=== PATIENT | female | born 1975 | race Caucasian/White ===

== ENCOUNTER 2024-11-19 09:08 | Outpatient (CLI) | payer OTHER, SELFPAY ==
--- OUTSIDE RECORDS SUMMARY | 2024-11-19 09:11 | XMS_ITS | Data Portability ---
Author Organization [facility] , [facility] Address [address] [place] [address] Assessment No assessment recorded. Plan of Treatment Reminders Order Date Submit Date Provider Last Modified By Organization Details Last Modified Time Details Appointments None recorded. Lab None recorded. Referral None recorded. Procedures None recorded. Surgeries None recorded. Imaging None recorded. Medication Orders Estrace 0.01% (0.1 mg/gram) vaginal cream 023 023 [facility] [id number], [address], 3 10:07:56 Lysteda 650 mg tablet 023 023 marko [facility] [address], [address], 3 12:55:01 ferrous sulfate 325 mg (65 mg iron) tablet 023 023 [facility] [address], [address], 3 16:38:51 Patient TargetsNo targets recorded. Patient InstructionsNo instructions recorded. Reason for Referral None Reported. Results Created Date Observation Date Name Description Value Unit Range Abnormal Flag Note LastModifiedBy Organization Detail LastModifiedTime 04/09/2004/09/2023 HGB AND HCT hemoglobin 12.5 g/dL 12.0-1 6.0 Not Available [facility] (Lab) [address] [facility], [place], [address], 04/09/2023 13:50:21 04/09/2004/09/2023 HGB AND HCT hematocrit 39.1 % 38.0-4 8.0 Not Available [facility] (Lab) [address] [facility], [place], [address], 04/09/2023 13:50:21 04/09/2004/14/2023 BC SURGI MEJIA PATHO LOGY path report [facility] [address] [facility] [place] [address] Phone : [phone] Fax: Depar tment of Patho logy Patho logy Repor t SURGI MEJIA FINAL REPOR T Patie nt Name: CHRISTIANNE BUITRAGO, BERTRAM DICKINSON [facility] cessi on#: [id number] : 1974 (Age: 47) Locat ion: SEOWM IF Gende r: F Colle cted Date: 2022 [facility] Rec #: [id number] Date Recei lola: 2022 Date Repor bobby: 2022 Provi antoine: BERTRAM Marin MD Speci men(s ) A: Uteru s, cervi x, bilat eral fallo pian tubes B: Cyst, Left ovari an Final Patho logic Diagn osis A. UTERU S, CERVI X AND FALLO PIAN TUBES , HYSTE RECTO MY AND BILAT ERAL SALPI NGECT HALIE: CERVI X WITH NO SIGNI FICAN T HISTO LOGIC ABNOR MALIT IES FALLO PIAN TUBES WITH BENIG N PARAT UBAL CYST (1.5 CM) ENDOM YOMET RIUM WITH PROLI FERAT BLANCA ENDOM ETRIU M, ADENO MYOSI S AND LEIOM YOMAS (SUNG URING UP TO 0.5 CM) B. LEFT OVARI AN CYST, CYSTE CTOMY : BENIG N OVARI AN CYST CONSI STENT WITH FOLLI CULAR CYST Felicity ctron icall y Patricia d Out ALLIS ON T LANA Pollack MD Patho logis t ATB:p b Micro scopi c Descr iptio n: The micro scopi c exami natio n suppo rts the above diagn osis. Clini mejia Histo ry Stres s incon tinen ce, femal e, frequ ency of mictu ritio n, teagan rhagi a Gross Descr iptio n Recei lola are two forma whit-f illed conta iners both label ed with the patie nt's name (Sotero buitrago), date of (05/27 6). A. Addit ional ly label ed uter us, cervi x, bilat eral fallo pian tubes , colle ction time 04/09 at 0949. The speci men consi sts of a 168 gram uteru s with attac hed cervi x, bilat eral amput ated undes ignat ed purpl e-gordon fimbr iated fallo pian tube and an intac t undes ignat ed parat ubal like cyst. The fallo pian tubes and cyst weigh 7 gram in aggre gate weigh t. The uteru s measu res 13.0 cm from fundu s-cer vix, 8.0 cm from cornu -corn u and 6.5 cm from anter ior to poste rior uteri ne body. The seros a is pink- gordon, to purpl e-gordon with small cysts noted . The resec tion kam n has areas that are sligh tly hemor rhagi c disco lored and ragge d. These raise d aspec ts range from 0.2 cm up to 0.6 cm in [facility]. The cervi x measu res 3.5 x 2.8 cm and has a slit- like os. The uteru s is bival lola to revea l a uteri ne cavit y measu ring 5.6 x 2.8 cm. The endom etriu m is red-t an and sligh tly sloug marcus, measu ring up to 0.4 cm in thick ness. Secti oning of the myome trium revea ls three myome trial nodul es. The two small er nodul es are white -gordon, whorl ed and well defin ed, measu ring 0.3 and 0.5 cm in great est dimen rubina. The remai renetta nodul e is white -gordon, whorl ed and ill-d efine d, measu ring 2.0 cm in great est dimen rubina. The remai renetta myome trium is pink- gordon with areas that appea r sligh tly trabe culat ed, avera ging 2.5 cm in thick ness. The cervi mejia canal is paten t with multi ple under lying cysti c like cavit ies that conta in semit ransl ucent gelat inous mater ial. The parat ubal cyst measu res 1.5 x 1.3 x 1.0 cm. Secti oning of the cyst revea ls a lumen that conta ins trans lucen t fluid . Tube #1 measu res 5.2 cm in lengt h with a diame ter up to 1.0 cm. Tube #2 measu res 5.0 cm in lengt h with a diame ter up to 0.8 cm. Secti oning of the tubes revea ls a pin-p oint lumen . Repre senta tive secti ons are submi tted as follo ws: A1 - Anter ior cervi x A2 - Poste rior cervi x A3 - Evacu ated parat ubal cyst, perpe ndicu larly bisec bobby and submi tted entir ailyn A4 - Repre senta tive tube 1 to inclu de fimbr iae submi tted entir ailyn A5 - Repre senta tive tube 2 to inclu de fimbr iae submi tted entir ailyn A6-7 - Repre senta tive full thick ness anter ior endom yomet rium A8-9 - Repre senta tive full thick ness endom yomet rium (A8 to inclu de repre senta tive myome trial nodul es) A10 - Repre senta tive ill-d efine d myome trial nodul e A11 - Remai nder of small er nodul es in addit ion to repre senta tive ill-d efine d nodul e A12 - Repre senta tive small cysts on seros a A13 - Repre senta tive ragge d resec tion kam n of uteru s B. Addit ional ly label ed left ovari an cyst, colle ction time 04/09 at 1024. The speci men consi sts of a 2 gram evacu ated ovari an cyst measu ring 4.0 x 4.0 cm with a wall thick ness of up to 0.6 cm. The exter nal surfa ce is white -gordon to purpl e-gordon and prima rily diamante h. The cyst linin g is red-t an to white -gordon and range s from diamante h to sligh tly granu lar appea ring. There is a singl e area of ovoid sligh tly dense disco lorat ion on the cyst linin g measu ring 0.4 x 0.4 cm. There is no ident ifiab le ovari an tissu e prese nt. Repre senta tive secti ons are submi tted in casse ttes B1 and B2, to inclu de the white -gordon ovoid area of cyst linin g submi tted entir ailyn in two secti ons, prese nt in casse tte B2. :duc reeder Fee Code( s): 90293 Not Available [facility] (Lab) [place], [address], 04/14/2023 15:20:33 Result Notes None recorded. Problems Name Problem SNOMED Code Status Onset Date Resolution Date Notes Provider Name and Address Organization Details Recorded Time Mixed urinary incontin ence 815689041 Active 2017 Mixed incontin ence; Progress : Stable Added By: Roxy Samayoa Add to Current Problems : YES ProblemS tatus: Current Mixed urinary incontin ence; Location : None Progress : Stable Added By: Lavinia Bonilla Add to Current Problems : YES ProblemS tatus: Resolve Mixed urinary incontin ence; Location : None Progress : Stable Added By: Carolyn Do Add to Current Problems : YES ProblemS tatus: Resolve Mixed urinary incontin ence; Location : None Progress : Stable Added By: Roxy Samayoa Add to Current Problems : YES ProblemS tatus: Current Not Available [facility] 19:23:08 Dysuria 24968451 Completed 201703/27/2018 Dysuria; Progress : Stable Added By: Jordyn Mai Add to Current Problems : NO ProblemS tatus: Resolve Painful micturit ion, unspecif ied; Progress : Stable Added By: Jordyn Mai Add to Current Problems : NO ProblemS tatus: Resolve Not Available [facility] 19:23:08 Problem Notes None recorded. Procedures Surgical History Date Name Laterality Status Provider Name and Address Organization Details Recorded Time 023 laparoscopic-assi sted vaginal hysterectomy completed Maddison Betancourt MD [address] [place] [address], [phone], [facility] 04/10/2023 18:50:03 023 insertion of transobturator tape for female urinary incontinence completed Maddison Betancourt MD [address] [place] [address], [phone], [facility] 04/10/2023 18:50:49 022 Endometrial Biopsy completed Maddison Betancourt MD [address] [place] [address], [phone], [facility] 04/25/2022 22:43:11 022 Most Recent Mammogram completed Fabiana Taylor [facility] 03/25/2022 13:10:53 section completed Britany ziegler [facility] 03/24/2022 21:59:48 procedure on back completed Lili Gandara [facility] 03/10/2023 15:28:46 Imaging Results None recorded. Procedure Notes None recorded. Medical Equipment None Reported. Allergies Allergen ID Allergen Name Allergen Category Reaction Reaction Severity Criticality Documentation Date Start Date Code Code System Note Provider Name and Address Organization Details Recorded Time 838572 aloe extract food,medi cation Not available Not available Not available 05/17/20212017 33339 RxNorm Sever ity: Moder ate; Not Available Not Available Not Available 608356 Lovenox medicatio n Not available Not available Not available 05/17/20212017 59448 6 RxNorm Sever ity: Moder ate; Not Available Not Available Not Available 176691 heparin sodium, porcine medicatio n Not available Not available Not available 05/17/20212017 85286 9 RxNorm Sever ity: Moder ate; Not Available Not Available Not Available Medications Name Sig Start Date Stop Date Status Note LastModified by Organization Details LastModified Time medroxypr ogesteron e 10 mg tablet TAKE 1 TABLET TWICE DAILY FOR 10 DAYS NEEDED FOR HEAVY PERIOD 03/10 completed Not Available Not Available Not Available oxybutyni n chloride ER 15 mg tablet,ex tended release 24 hr TAKE 1 TABLET BY MOUTH EVERY DAY 03/10 completed Not Available Not Available Not Available ketoconaz ole 2 % shampoo USE SHAMPOO 2-3 TIMES A WEEK NEED FOR ITCHING SCALP. LEAVE ON FOR 5-10 MINUTES BEFORE RINSING. active Not Available Not Available No t Available citalopra m 40 mg tablet Take 1 tablet(s ) by mouth daily 03/25 completed Citalopr am Hydrobro mide 10mg Tablet Allow Substitu tion: True Refill Denied: No Refill DateOccu rred: 09/03/19 18 Not Available Not Available Not Available oxybutyni n chloride ER 10 mg tablet,ex tended release 24 hr Take 1 tablet(s ) by mouth daily 12/02 completed Oxybutyn in Chloride 10mg Tablets, Extended Release Allow Substitu tion: True Refill Denied: No Not Available Not Available Not Available meloxicam 15 mg tablet TAKE 1 TABLET (15 MG TOTAL) BY MOUTH DAILY. active Not Available Not Available No t Available topiramat e 25 mg tablet TAKE 1 TABLET (25 MG TOTAL) BY MOUTH DAILY. 03/25 completed Not Available Not Available Not Available triamcino lone acetonide 0.1 % topical cream APPLY TOPICALL Y TWICE A DAY 03/25 completed Not Available Not Available Not Available citalopra m 20 mg tablet Take 1 tablet(s ) by mouth daily 04/08 completed Citalopr am Hydrobro mide 10mg Tablet Allow Substitu tion: True Refill Denied: No Refill DateOccu rred: 09/03/19 18 Not Available Not Available Not Available ferrous sulfate 325 mg (65 mg iron) tablet TAKE 1 TABLET BY MOUTH EVERY DAY active Not Available Not Available No t Available polymyxin B sulfate 10,000 unit-trim ethoprim 1 mg/mL eye drops PLACE 1 DROP INTO THE RIGHT EYE EVERY 4 HOURS FOR 7 DAYS. 03/10 completed Not Available Not Available Not Available diclofena c sodium 75 mg tablet,de layed release TAKE 1 TABLET BY MOUTH TWICE A DAY active Not Available Not Available No t Available ibuprofen 600 mg tablet TAKE 1 TABLET BY MOUTH EVERY 6 HOURS NEEDED FOR PAIN active Not Available Not Available No t Available estradiol 0.01% (0.1 mg/gram) vaginal cream INSERT 1 GRAM BY VAGINAL ROUTE 3 TIMES A WEEK AT BEDTIME. active Not Available Not Available No t Available methylpre dnisolone 4 mg tablets in a dose pack TAKE 6 TABLETS ON DAY 1 DIRECTED ON PACKAGE AND DECREASE BY 1 TAB EACH DAY FOR A TOTAL OF 6 DAYS active Not Available Not Available No t Available ipratropi um bromide 42 mcg (0.06 %) nasal spray SPRAY 2 SPRAYS INTO EACH NOSTRIL 4 TIMES A DAY 03/10 completed Not Available Not Available Not Available clobetaso l 0.05 % scalp solution APPLY TO SCALP ONCE DAILY NO MORE THAN 5 OUT OF 7 DAYS PER WEEKS NEEDED 04/18 completed Not Available Not Available Not Available metformin ER 500 mg tablet,ex tended release 24 hr TAKE 1 TABLET BY MOUTH EVERY DAY WITH BREAKFAS T 03/10 completed Not Available Not Available Not Available amoxicill in 875 mg-potass ium clavulana te 125 mg tablet TAKE 1 TABLET BY MOUTH TWICE A DAY FOR 10 DAYS 09/09 completed Not Available Not Available Not Available clindamyc in phosphate 1 % topical solution APPLY SOLUTION TOPICALL Y TO SCALP ONCE DAILY FOR 14 DAYS 09/09 completed Not Available Not Available Not Available oxycodone 5 mg tablet TAKE 1 TABLET BY MOUTH EVERY 6 HOURS NEEDED. INDICATI ONS: ACUTE PAIN < 7 DAY SUPPLY 04/18 completed Not Available Not Available Not Available Bactrim DS 800 mg-160 mg tablet 1 PO BID X 10 days 01/26 completed Bactrim DS 160mg/80 0mg Tablet RxNorm: 889720 Allow Substitu tion: True Refill Denied: No Not Available Not Available Not Available escitalop lianet 10 mg tablet TAKE 1 TABLET BY MOUTH EVERY DAY 04/08 completed Not Available Not Available Not Available escitalop lianet 20 mg tablet TAKE 1 TABLET BY MOUTH EVERY DAY active Not Available Not Available No t Available nitrofura ntoin monohydra te/macroc rystals 100 mg capsule TAKE 1 CAPSULE BY MOUTH TWICE A DAY active Not Available Not Available No t Available fluocinol one 0.01 % scalp oil and shower cap APPLY TO SCALY SPOTS ON SCALP NIGHTLY NEEDED 04/18 completed Not Available Not Available Not Available fenofibra te 160 mg tablet TAKE 1 TABLET BY MOUTH EVERY DAY active Not Available Not Available No t Available oxybutyni n chloride Take 1 tablet(s ) by mouth daily 03/26 completed Oxybutyn in Chloride 15mg Tablets, Extended Release RxNorm: 231108 Allow Substitu tion: True Refill Denied: No Not Available Not Available Not Available folic acid 03/25 completed Folic Acid Allow Substitu tion: True Refill Denied: No Refill DateOccu rred: 09/03/19 18 Not Available Not Available Not Available Fenofibra te Take 1 tablet(s ) by mouth daily 03/25 completed Fenofibr ate 160mg Tablet Allow Substitu tion: True Refill Denied: No Refill DateOccu rred: 09/03/19 18 Not Available Not Available Not Available sodium fluoride 1.1 %-potassi um nitrate 5 % dental paste BRUSH ON THOROUGH LY ONCE DAILY FOR 2 MINUTES, PREFERAB LY AT BEDTIME active Not Available Not Available No t Available cholecalc iferol (vitamin D3) 1,250 mcg (50,000 unit) capsule TAKE 1 CAPSULE (50,000 UNITS TOTAL) BY MOUTH WEEKLY. active Not Available Not Available No t Available tranexami c acid 650 mg tablet TAKE 2 TABLETS BY MOUTH 3 TIMES A DAY FOR 5 DAYS 04/18 completed Not Available Not Available Not Available Probiotic 04/08 completed Probioti c Allow Substitu tion: True Refill Denied: No Refill DateOccu rred: 09/03/19 18 Not Available Not Available Not Available Myrbetriq 2017 active Myrbetri q 50mg Tablets, Extended Release RxNorm: [id number] Allow Substitu tion: True Refill Denied: No Refill DateOccu rred: 11/06/19 18 Not Available Not Available Not Available Vitals Date Recorded Body height Body mass index (BMI) Body weight Systolic blood pressure Diastolic blood pressure Provider Name and Address Organization Details Last Updated DateTime 2022 160.02 cm 38.6 kg/m2 14538.42 g 116 mm[Hg] 84 mm[Hg] Fabiana Taylor [facility] 2 10:33:55 Date Recorded Body height Body mass index (BMI) Body weight Systolic blood pressure Diastolic blood pressure Provider Name and Address Organization Details Last Updated DateTime 09/09/2022 160.02 cm 38.3 kg/m2 50088.39 g 118 mm[Hg] 84 mm[Hg] Fabiana Taylor [facility] 3 16:20:11 Date Recorded Body height Body mass index (BMI) Body weight Systolic blood pressure Diastolic blood pressure Provider Name and Address Organization Details Last Updated DateTime 03/10/2023 160.02 cm 38.4 kg/m2 05394.5 4 g 130 mm[Hg] 80 mm[Hg] Lili Gandara [facility] [employer] [facility] 3 15:30:37 Date Recorded Body height Provider Name an d Address Organization Details Last Updated DateTime 04/18/2023 160.02 cm Justyna Buckley [facility] 04/18/2023 12:28:00 Date Recorded Body mass index (BMI) Body weight Body temperature Systolic blood pressure Diastolic blood pressure Provider Name and Address Organization Details Last Updated DateTime 3 38.2 kg/m2 65275.2 3 g 98 [degF] 120 mm[Hg] 82 mm[Hg] Joi Squires [facility] 3 12:54:25 Date Recorded Body height Body mass index (BMI) Body weight Systolic blood pressure Diastolic blood pressure Provider Name and Address Organization Details Last Updated DateTime 06/23/2023 160.02 cm 39.3 kg/m2 527528. 51 g 110 mm[Hg] 70 mm[Hg] Lili Gandara [facility] 09:53:39 Social History Question Answer Notes LastModified by Organizat [employer] Details LastModified Time Tobacco Smoking Status Never Smoker Chelsey Dominguez nae [place] [employer] [facility] 04/08/2022 14:54:21 What Is Your Level Of Alcohol Consumption? None Information not available 04/08/2022 Are You Blind Or Do You Have Difficulty Seeing? No Information not available 04/08/2022 Are You Deaf Or Do You Have Serious Difficulty Hearing? No Information not available 04/08/2022 What Type Of Diet Are You Following? REGULAR Information not available 04/08/2022 How Many Children Do You Have? 1 Information not available 03/25/2022 What Is Your Relationship Status? Domestic Partner Information not available 03/25/2022 Are You Sexually Active? Yes Information not available 03/25/2022 Do You Use Any Illicit Or Recreational Drugs? No Information not available 04/08/2022 Sex: Female Functional Status Question Answer Note LastModified by Organizat ion Details LastModified Time What is your exercise level? Occasional Information not available 04/08/2022 Mental Status None recorded. Family History Relationship Description Onset Age of this Age Resolved Age Notes LastModified by Organization Details LastModified Time Mother Malignant tumor of breast 50 Not available 2021 13:04:24 Maternal Grandmother Malignant tumor of colon 50 Not available 2021 13:04:24 Medical History Condition Response Other Cancer N High Blood Pressure N Colon Cancer N Cytomegalovirus N Hyperthyroidism N Breast Cancer N Herpes (HSV) N MRSA N Blood Transfusion N Lung Cancer N Hypothyroidism N Depression N Incontinence N Panic Attacks N Neurological Disorder N Deep Vein Thrombosis N Anxiety Disorder N Autoimmune disease N Arthritis N Shingles N Tuberculosis/Positive PPD N Polycystic Ovarian Syndrome N Cervical Cancer N Chlamydia N Hematuria N Varicosities N Stroke N Crohn's Disease N Seasonal allergies N Alzheimer's/Dementia N COPD/Emphysema N Endometriosis N HPV/Genital Warts N IBS (Irritable Bowel Syndrome) N History of Abnormal Pap N High Cholesterol N Liver Disease N Fibromyalgia N Kidney Infection N Ulcer N Kidney Disease N HIV N Gallbladder disease N Sickle Cell Disease/Trait N Von Willebrand disease N ADD/ADHD N Eating Disorder N Anemia N Diabetes Mellitus (non-insulin dependent ) N Multiple Sclerosis N Ovarian Problems N Gonorrhea N Frequent Urinary Tract infections N Osteopenia N Headaches/migraines N GERD (reflux) N Ovarian Cancer N Diabetes (insulin dependent) N Seizures/Epilepsy N Fibroids N Asthma N Heart Attack N Lupus N Endometrial Cancer N Rubella N Blood Clotting Disorder N Bipolar Disorder N Diabetes Mellitus (during ) N Ulcerative Colitis N Hepatitis N Heart Disease N Pulmonary Embolism N RPR N Chicken Pox N Osteoporosis N Gynecological History Statement/Question Response Duration of Flow (days) 13 Most Recent Mammogram 01/24/2022 Current Control Method Hysterectom y Flow Heavy Date of LMP 01/24/2023 Obstetrics History GPAL:G 6 P 1 0 5 1 Type Value Full Term 1 Spontaneous 5 Living 1 Total 6 Past Encounters Encounter ID Performer Location Encounter Start Date Encounter Closed Date Diagnosis/Indication Diagnosis SNOMED-CT Code Diagnosis ICD10 Code Diagnosis Note [id number] Maddison Betancourt MD [facility] [address] [place] [address] 03/25/2022 12:29:23 03/27/2022 00:34:55 Menorrhagia 063123557 N92.0 Recent episode of severe menorrhagi a which was preceded by several months of amenorrhea . Pt currently taking provera which has helped to slow the bleeding. She is fearful of this severe bleeding happening again and would also like to make sure nothing is wrong like cancer. discussed that stress may affect regularity of menses as can perimenopa useAdvised to complete the provera and then sched follow up 3 - 4 wk for ultrasound and endometria l bx History of recurrent miscarriage - not 194140033 N96 hx of MTHFR Family marjorie nning surveillance 540725235 Z30.09 pt is not on any control at this time, uses condoms. She is certain at this point in her life she does not want any further childbeari ng and wants to be done with fear of . Briefly discussed Mirena IUD, may also consider surgical options after we complete her work up [id number] Maddison Betancourt MD [facility] [address] [place] [address] 04/08/2022 14:00:10 04/28/2022 15:11:39 Excessive and frequent menstruation 558498643 N92.0 discussed and reviewed ultrasound findings. Endometria l bx done today, follow up results [id number] Maddison Betancourt MD [address] [address] 2022 10:02:14 06/02/2022 09:22:34 Menometrorrhagia 695340563 N92.1 most likely DUB. Had few months of amenorrhea then prolonged bleeding. Some help with Provera. Embx neg but scant sample. Hx of MTHFR and has been advised to avoid hormonesDi scussed options: may continue to take provera prn heavy bleeding. may consider hysterosco py with ablation, vs hysterecto my if recurrent issues.ask ed pt to keep a menstrual calendar and to see me in 3 months. call sooner if heavy bleeding recurs, would repeat provera [id number] Maddison Betancourt MD [address] [address] 09/09/2022 15:53:39 09/16/2022 15:06:13 Mixed urinary incontinence 566852544 N39.46 discussed her urinary incontinen ce. Advise referral to Dr Macdonald to manage this problem [id number] Maddison Betancourt MD [address] [address] 03/10/2023 15:16:12 03/10/2023 18:30:10 Excessive and frequent menstruation 389453431 N92.0 Severe prolonged menstrual bleeding which has not responded to progestins . Will try Lysteda. Will also place on iron and follow up the blood work that Dr Verduzco betty this am so we don't duplicate. Reviewed chart including prior ultrasound and embx. She has had 1 prior c sectionAt this point, patient desires to proceed with hysterecto my. Is also aware of ablation option, but she is concerned that it may not work/is not definitive . 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 pt has appt to see Dr Macdonald in July. Will begin estradiol cream 1 g 3X weekly Health Concerns Section Related Observation LastModified by Organization [employer] ls LastModified Time None Recorded Concern Status LastModified by Organization Details LastModified Time None Recorded Advance Directives Directive None Recorded Payers Encounter Date Sequence Insurance Name Policy Number Policy Patricia Covered Member ID Patricia Member ID Guarantor Name 2022 1 [employer] [id number] Maddison Gustafson [id number] Maddison Gustafson 09/09/2022 1 [employer] [id number] Maddison Gustafson [id number] Maddison Gustafson 03/10/2023 1 [employer] [id number] Maddison Gustafson [id number] Maddison Gustafson 04/18/2023 1 R [id number] Maddison Gustafson [id number] Maddison Gustafson 06/23/2023 1 [facility] [id number] Maddison Gustafson [id number] Maddison Gustafson Notes Date Note Type Note Provider Name and Address Organization Details Recorded Time 2022 text/html Maddison comes back in to review the results of her endometrial biopsy and ultrasound. She had the bx done in office and it did not show any abn, however a scant sample was obtained.She has had menorrhagia and irregular cycles. She has been treated with provera and had good results with this. However, she has MTHFR and does not want to take hormonal methods group home. She knows she cannot take ocp due to this.The month of March was horrible with heavy and prolonged bleedingShe is not really having much pelvic pain, mostly just feeling bloated when bleeding heavilyShe would like to consider a hysterectomy in the future. she feels like she is too busy to deal with all this bleeding. She is in the process of obtaining legal guardianship of her niece who is 1 yr old. She also has a 13 yr old. Maddison Betancourt MD [address] [place] [address], [phone], [employer] [facility] 2022 11:09:37 09/09/2022 text/html Maddison is farzaneh varinder seen for a f/u visit for irregular bleeding.She was ok with continue taking provera prn heavy bleeding she may consider hysteroscopy with ablation vs hysterectomy if recurrent issues. Pt is to keep a menstrual calendar.Patient has not had any bouts of major bleeding since Apr 30. She has not had to take the provera.She has had some issues with her bladder, leaking urine, stress incontinence as well as urge incontinence. This all started after having a bad cough. Patient is using depends or very thick pads . Patient also has a history of kidney stones and has seen some bright red blood as well as UTI type symptoms that just suddenly went away. Patient thinks that it could have possibly been a stone. Patient is very discouraged. Maddison Betancourt MD [address] [place] [address], [place], [phone], [facility] [employer] 03/10/2023 04:43:04 03/10/2023 text/html Maddison is a 5 6 yr old who presents for a visit concerning abnormal uterine bleeding.She has been treated with Provera.She underwent pelvic ultrasound last Sept with the finding of a heterogenous uterus without distinct fibroid. An endometrial biopsy was also done but showed scant tissue.She has a medical history of MTHFR and has been advised to not take hormones/estrogen.We have previously discussed treatment options for herPt is scheduled for her sling surgery with Dr Macdonald on 04/09.She had blood work with Dr Carmelo Verduzco this morning., Maddison Betancourt MD [address] [place] [address], [phone], [facility] 03/10/2023 18:30:00 04/18/2023 text/html Maddison return s for her first post op appt from her laparoscopic assisted total vaginal hysterectomy with bilateral salpingectomies and left ovarian cystectomy. She also had a midurethral bladder sling placed by Dr Macdonald.She had no intraoperative complications and was discharged POD 1.Uterine pathology showed fibroids and adenomyosisShlele is doing well, working from home on laptop.She feels very sore overall but is doing well. She is emptying bladder well. Did see Dr Macdonald and has a urine culture pendingShe notes that she is not leaking when she is coughing or sneezing as much, was able to go from wearing a depends to just a small pad Maddison Betancourt MD [address] [place] [address], [place], [phone], [facility] [facility] 04/18/2023 13:14:22 06/23/2023 text/html Maddison return s for a final post op check from her LAVH/BS/LEFT OV CYSTECTOMY done 04/09/23. She also had a TOT sling done by Dr Macdonald the same day.She experienced no post op complications.She reports that she is having some pinkish disch with intercourse and her stated that he can feel something Maddison Betancourt MD [address] [place] [address], [place], [phone], [employer] [facility] 06/23/2023 10:08:31 OBGyn Episode Ob Episode Information Episode Created Date Number of Fetuses Patient Bloodtype Patient rh Status Prepregnancy Weight lbs Domestic Partner Domestic Partner Phone Father Name Optician Apprentice Dispensing Status 09/09/19 23 1 CLOSED Fetus Data First Name Last Name Admitted to NICU Weight (g) Sex Living Outcome Pediatric Complications Fetus ID Race Codes Race Delivery Type 3656.85 [id number] F Full Term [id number] Primary Ton Calculation Initial Ton Date Initial Exam Date Initial Exam Provider Initial Ultrasound Date Last Menstrual Period Date Ultra Sound Weeks Gestation 0 Eighteen To Twenty Week Ton Update Ultra Sound Date Fundal Height At Umbil Quickening Date Ultra Sound Latest Weeks Gestation Final Ton Confirmed By Final Ton Confirmed Date Final Ton Date Ultra Sound Latest Days Gestation 0 0 Menstrual History Last Menstrual Date Menses Monthly On Bcp Conception Prior Menses Frequency Hcg Plus Date Menarche Onset Age Delivery Information Delivery Date Delivery Type Labor Anesthesia Weeks Gestation Incision Type Labor Labor Length Hrs Delivered By Post Complications Tubal Sterilization Discharge Date Comments 9 40 Discharge Information Feeding Method Contraceptive Method Maternal HG B and HCT Levels
--- OUTSIDE RECORDS SUMMARY | 2024-11-19 09:12 | XMS_ITS | Encounter Summary ---
Author Organization [facility] Address [address] [place] [address] Care Team Providers Care Snowmaker Name Role Phone Carmelo Verduzco MD Primary Care Provider [phone] Encounter Details Date Type Department Care Team (Late st Contact Info) Description 08/26/2023 [employer] Message Enc [facility] Family Medicine [address], [address] [place] [phone] [facility], [facility] Provider hand Social History Tobacco Use Types Packs/Day Years Used Date Smoking Tobacco: Never Smokeless Tobacco: Never Alcohol Use Standard Drinks/Week Comments No 0 (1 standard drink = 0.6 oz pur e alcohol) PHQ-2 Answer Date Recorded Patient Health Questionnaire-2 Score 2 08/26/2023 Comments No Sex and Gender Information Value Date Recorded Sex Assigned at Female 09/19/2024 1:27 PM ENVELOPE SEALER OPERATOR Legal Sex Female 5:32 PM CDT Gender Identity Female 09/19/2024 1:27 PM ENVELOPE SEALER OPERATOR Sexual Orientation Not on file documented as of this encounter Functional Status * Over the past 2 weeks, how often have you been bothered by any of the following problems? Question Answer Date of Assessment Author Status Little interest or pleasure in doing things Several days 08/26/2023 10:36 AM Abida Gastelum MA Active Feeling down, depressed, or hopeless Several days 08/26/2023 10:36 AM Abida Gastelum MA Active Patient Health Questionnaire-2 Score 2 08/26/2023 10:36 AM Miranda Gastelum MA Active documented as of this encounter Plan of Treatment Not on file documented as of this encounter Visit Diagnoses Not on filedocumented in this encounter Additional Health Concerns Assessment Noted Time PHQ-9 Depression Total Score: 0 10/18/19 22 8:13 AM CDT documented as of this encounter Care Teams Snowmaker Relationship Specialty Start Date End Date Carmelo Verduzco MD [address] [facility] [address] [place] [address] PCP - General FAMILY PRACTICE 11/11/17 documented as of this encounter
--- OUTSIDE RECORDS SUMMARY | 2024-11-19 09:12 | XMS_ITS | Encounter Summary ---
Author Organization [facility] Address [address] [place] [address] Care Team Providers Care Assistant Director Of Nursing Name Role Phone Carmelo Verduzco MD Primary Care Provider [phone] Encounter Details Date Type Department Care Team (Late st Contact Info) Description 10/04/2024 [employer] Message Enc [facility] Medical Group Orthopedic & Sports Medicine - [place] [address] [place], [place] [phone] Omero Cedillo MD [address] [place] [address] Pain in left hand Social History Tobacco Use Types Packs/Day Years Used Date Smoking Tobacco: Never Passive Smoke Exposure: Past Smokeless Tobacco: Never Alcohol Use Standard Drinks/Week Comments No 0 (1 standard drink = 0.6 oz pur e alcohol) PHQ-2 Answer Date Recorded Patient Health Questionnaire-2 Score 0 09/19/2024 Comments No Sex and Gender Information Value Date Recorded Sex Assigned at Female 09/19/2024 1:27 PM WRAPPER COUNTER Legal Sex Female 5:32 PM CDT Gender Identity Female 09/19/2024 1:27 PM WRAPPER COUNTER Sexual Orientation Not on file documented as of this encounter Plan of Treatment Not on file documented as of this encounter Visit Diagnoses Not on filedocumented in this encounter Additional Health Concerns Assessment Noted Time PHQ-9 Depression Total Score: 0 10/18/19 22 8:13 AM CDT documented as of this encounter Care Teams Assistant Director Of Nursing Relationship Specialty Start Date End Date Carmelo Verduzco MD [address] [facility] [address] [place] [address] PCP - General FAMILY PRACTICE 11/11/17 documented as of this encounter
--- OUTSIDE RECORDS SUMMARY | 2024-11-19 09:12 | XMS_ITS | Encounter Summary ---
Author Organization [facility] Address [address] [place] [address] Care Team Providers Care Corrective Therapy Aide Name Role Phone Arlen Golden MD, Polo Felton Primary Care Provider Encounter Details Date Type Department Care Team (Late st Contact Info) Description 09/19/2008 Outpatient Historical [facility] Gabriel Jones MD NO ADDRESS ON FILE Social History Tobacco Use Types Packs/Day Years Used Date Smoking Tobacco: Never Assessed Comments Unknown Sex and Gender Information Value Date Recorded Sex Assigned at Not on file Legal Sex Female 5:37 AM MANAGER FINANCIAL Gender Identity Not on file Sexual Orientation Not on file documented as of this encounter Plan of Treatment Not on file documented as of this encounter Procedures Procedure Name Priority Date/Time Associated Diagnosis Comments US OB LTD 1 OR MORE FETUSES Timed Study 09/26/2008 2:52 PM MANAGER FINANCIAL documented in this encounter Results * US OB LTD 1 OR MORE FETUSES (09/26/2008 2:52 PM MANAGER FINANCIAL) Anatomical Region Laterality Modality Pelvis Other Narrative 09/26/2008 2:52 PM MANAGER FINANCIAL FINAL - Order Information Only Procedure Note Torin Veliz RN - 08/14/2015 FINAL - Order Information Only Gabriel Jones MD US ORDERABLES Final Result documented in this encounter Visit Diagnoses Not on filedocumented in this encounter Care Teams Corrective Therapy Aide Relationship Specialty Start Date End Date Polo Mckinley Jr., MD PCP - General Family Practice 03/29/14 documented as of this encounter
--- OUTSIDE RECORDS SUMMARY | 2024-11-19 09:12 | XMS_ITS | Clinical Summary ---
Author Organization [facility] Address [address] [place] [address] Care Team Providers Care Circuit Breaker Mechanic Name Role Phone Carmelo Verduzco MD Primary Care Provider [phone] Source Comments [facility],non-owned Affiliates and Associated Physician Practices is amultiple site organization consisting of ambulatory clinics and hospital sitesin [place], [place], [place] and [place]. This disclosure is being madepursuant to the Care Everywhere program and may not contain all information available regarding this patient. Last updated 18.[facility] Allergies Active Allergy Reactions Criticality Noted Date Comments Lidocaine Urticaria Medium 06/07/2018 Heparin Urticaria Medium 06/07/2018 Lovenox Urticaria Medium 06/07/2018 Medications * Be aware that medications may not be up to date on this document. Alwaysverify current medications with the patient. oxybutynin CR 24hr (DITROPAN XL) 15 MG tablet 04/12/2018 Ac tive fenofibrate (LOFIBRA) 160 MG tablet 05/28/2018 Active escitalopram (LEXAPRO) 10 MG tablet 05/28/2018 Active pantoprazole EC (PROTONIX) 40 MG tablet TK 1 T PO D 3 02/09/2018 Active Family History Medical History Relation Name Comments Depression Brother Early Brother Arthritis - Osteo Father Cancer - Skin, Non Melanoma Father Depression Father Arthritis - Osteo Maternal Grandfather CVA Maternal Grandfather Cancer - Colon Maternal Grandfather Cancer - Skin, Non Melanoma Maternal Grandfather Hearing Loss - Unspecified Maternal Grandfather Other - Cardiac Maternal Grandfather Hear t Disease Arthritis - Osteo Maternal Grandmother Hearing Loss - Unspecified Maternal Grandmother Arthritis - Osteo Mother Cancer - Breast Mother Relation Name Status Comments Brother Father Alive Maternal Grandfather Maternal Grandmother Alive Mother Alive Sister Alive Social History Tobacco Use Types Packs/Day Years Used Date Smoking Tobacco: Never Smokeless Tobacco: Never Tobacco Cessation:Counseling Given: No Alcohol Use Standard Drinks/Week Comments No 0 (1 standard drink = 0.6 oz pur e alcohol) Comments No Sex and Gender Information Value Date Recorded Sex Assigned at Not on file Legal Sex Female 6:35 AM RESOURCE DIRECTOR Gender Identity Not on file Sexual Orientation Not on file Last Filed Vital Signs Vital Sign Reading Time Taken Comments Blood Pressure 121/82 06/14/2018 11:10 AM RESOURCE DIRECTOR Pulse 91 06/14/2018 11:10 AM RESOURCE DIRECTOR Temperature 36.5 C (97.7 F) 06/14/2018 11:10 AM RESOURCE DIRECTOR Respiratory Rate - - Oxygen Saturation - - Inhaled Oxygen Concentration - - Weight 104.3 kg (230 lb) 06/14/2018 11:10 AM RESOURCE DIRECTOR Height 157.5 cm (5' 2 ) 06/14/2018 11:10 AM RESOURCE DIRECTOR Body Mass Index 42.07 06/14/2018 11:10 AM RESOURCE DIRECTOR Plan of Treatment Health Maintenance Due Date Last Done Comments COLOGUARD (AGES 45-75) - COL ON CA SCREENING 1976 COLON MONITORING 1976 COLONOSCOPY - COLON CA SCREENING 1976 CT COLONOGRAPHY - COLON CA SCREENING 1976 Colorectal Cancer Screening 1976 FIT - COLON CA SCREENING 1976 FLEX SIG - COLON CA SCREENING 1976 LIPID TESTING 1976 MAMMOGRAM 1976 HIV SCREENING 1991 HEPATITIS C SCREENING 05/27/1994 DTAP/TDAP/TD VACCINES (1 - Tdap) 1995 HEPATITIS B VACCINE (1 of 3 - 19+ 3-dose series) 1995 SCREENING FOR DIABETES 06/14/2018 COVID-19 VACCINE (1 - 2023-2 5 season) 2024 DEPRESSION SCREENING 07/27/2024 INFLUENZA VACCINE (Season Ended) 2025 ZOSTER VACCINE (1 of 2) 2026 HIB VACCINE Aged Out No longer eligi ble based on patient's age to complete this topic HPV VACCINE Aged Out No longer eligi ble based on patient's age to complete this topic MENINGOCOCCAL (Group B) VACC INE SHARED DECISION-MAKING Aged Out No longer eligibl e based on patient's age to complete this topic MENINGOCOCCAL GROUPS A/C/Y/W VACCINE Aged Out No longer eligible b ased on patient's age to complete this topic PNEUMOCOCCAL VACCINE Aged Out No long er eligible based on patient's age to complete this topic Insurance Member Subscriber Plan / Payer (Ef fective 2015-Present) Name:Maddison Phillips Relation to Subscriber:Self Name:Maddison Phillips Payer ID:[id number] (NAIC) Type:[employer] Address: [place] [id number] [place] [id number] Care Teams Circuit Breaker Mechanic Relationship Specialty Start Date End Date Carmelo Verduzco MD [address] [facility] [address] [place] [address] PCP - General Family Medicine 06/07/18
--- OUTSIDE RECORDS SUMMARY | 2024-11-19 09:12 | XMS_ITS | Encounter Summary ---
Author Organization [facility] Address [address] [place] [address] Care Team Providers Care Machine Bender Name Role Phone Carmelo Verduzco MD Primary Care Provider [phone] Encounter Details Date Type Department Care Team (Late st Contact Info) Description 03/16/2023 [employer] Message Enc [facility] Medical Group Family Medicine - [place] [address] [facility], [address] [place] [address] [facility] Provider pap results Social History Tobacco Use Types Packs/Day Years Used Date Smoking Tobacco: Never Smokeless Tobacco: Never Alcohol Use Standard Drinks/Week Comments No 0 (1 standard drink = 0.6 oz pur e alcohol) PHQ-2 Answer Date Recorded Patient Health Questionnaire-2 Score 0 08/05/2022 Comments No Sex and Gender Information Value Date Recorded Sex Assigned at Female 09/19/2024 1:27 PM PROOF COINS INSPECTOR Legal Sex Female 5:32 PM CDT Gender Identity Female 09/19/2024 1:27 PM PROOF COINS INSPECTOR Sexual Orientation Not on file documented as of this encounter Plan of Treatment Not on file documented as of this encounter Visit Diagnoses Not on filedocumented in this encounter Additional Health Concerns Assessment Noted Time PHQ-9 Depression Total Score: 0 10/18/19 22 8:13 AM CDT documented as of this encounter Care Teams Machine Bender Relationship Specialty Start Date End Date Carmelo Verduzco MD [address] [facility] [address] [place] [address] PCP - General FAMILY PRACTICE 11/11/17 documented as of this encounter
--- OUTSIDE RECORDS SUMMARY | 2024-11-19 09:12 | XMS_ITS | Encounter Summary ---
Author Organization [facility] Address [address] [place] [address] Care Team Providers Care Test Cell Technician Name Role Phone Carmelo Verduzco MD Primary Care Provider [phone] Encounter Details Date Type Department Care Team (Late st Contact Info) Description 12/29/2022 [employer] Message Enc [facility] Medical Group Family Medicine - [place] [address] [facility], [address] [place] [phone] Carmelo Verduzco MD [address] [facility] [address] [place] [phone] Metformin and Oxybutinin Social History Tobacco Use Types Packs/Day Years Used Date Smoking Tobacco: Never Smokeless Tobacco: Never Alcohol Use Standard Drinks/Week Comments No 0 (1 standard drink = 0.6 oz pur e alcohol) PHQ-2 Answer Date Recorded Patient Health Questionnaire-2 Score 0 08/05/2022 Comments No Sex and Gender Information Value Date Recorded Sex Assigned at Female 09/19/2024 1:27 PM ENTERPRISE INFRASTRUCTURE ARCHITECT Legal Sex Female 5:32 PM CDT Gender Identity Female 09/19/2024 1:27 PM ENTERPRISE INFRASTRUCTURE ARCHITECT Sexual Orientation Not on file documented as of this encounter Plan of Treatment Not on file documented as of this encounter Visit Diagnoses Not on filedocumented in this encounter Additional Health Concerns Assessment Noted Time PHQ-9 Depression Total Score: 0 10/18/19 22 8:13 AM CDT documented as of this encounter Care Teams Test Cell Technician Relationship Specialty Start Date End Date Carmelo Verduzco MD [address] [facility] [address] [place] [address] PCP - General FAMILY PRACTICE 11/11/17 documented as of this encounter
--- OUTSIDE RECORDS SUMMARY | 2024-11-19 09:12 | XMS_ITS | Encounter Summary ---
Author Organization [facility] Address [address] [place] [address] Care Team Providers Care Public Relations Specialist Name Role Phone Arlen Golden MD, Polo Felton Primary Care Provider Encounter Details Date Type Department Care Team (Late st Contact Info) Description 10/17/2008 Outpatient Historical HIS PATIENT IN A BED Marciano Grissom MD [address] [place] [phone] Genaro Walker MD NO ADDRESS ON FILE Social History Tobacco Use Types Packs/Day Years Used Date Smoking Tobacco: Never Assessed Comments Unknown Sex and Gender Information Value Date Recorded Sex Assigned at Not on file Legal Sex Female 5:37 AM PRODUCT MGMT DEV MANAGER Gender Identity Not on file Sexual Orientation Not on file documented as of this encounter Plan of Treatment Not on file documented as of this encounter Procedures Procedure Name Priority Date/Time Associated Diagnosis Comments URINALYSIS WITH REFLEX CULTURE Stat 10/17/2008 8:39 PM CDT URINALYSIS W/REFLEX MICROSCOPIC Stat 10/17/2008 8:39 PM CDT documented in this encounter Results * (ABNORMAL) URINALYSIS (10/17/2008 8:39 PM CDT) BLOOD UA Negative Negative [facility] COLOR UA Pale Yellow [facility] NITRITE UA Negative Negative [facility] UROBILINOGEN UA <1 <=1 mg/dL [facility] PH UA 6.5 5.0 - 8.0 [facility] KETONES UA 1+(A) Negative [facility] CLARITY UA Clear Clear [facility] BILIRUBIN UA Negative Negative [facility] PROTEIN UA Negative Negative [facility] LEUKOCYTE ESTERASE UA Negative Negative [facility] SPECIFIC GRAVITY UA 1.008 1.001 - 1.035 [facility] GLUCOSE UA Negative Negative [facility] 10/17/2008 8:39 PM CDT 10/17/2008 8:43 PM CDT Marciano Grissom MD URINE ORDERABLES Final Result Performing Organization Address [facility] Phone Number INTERFACE SYSTEM Refer to clinic/hospital department [facility] CLIA# [id number] [address] [place] [address] * URINALYSIS WITH REFLEX CULTURE (10/17/2008 8:39 PM CDT) URINE CULTURE ORDER Not indicated [facility] Comment: Criteria for a reflex culture include one or more of the following: Abnormal nitrite, leukocyte esterase, WBCs or RBCs. Lack of qualifying criteria does not exclude the possiblity of a urinary tract infection. Dilute urine, drug interference, etc. may decrease the sensitivity of the criteria analytes. Urine specimen (specimen) 10/17/2008 8:39 PM CDT 10/17/2008 8:43 PM CDT Marciano Grissom MD URINE ORDERABLES Final Result Performing Organization Address [facility] Phone Number INTERFACE SYSTEM Refer to clinic/hospital department [facility] CLIA# [id number] [address] [place] [address] documented in this encounter Visit Diagnoses Not on filedocumented in this encounter Care Teams Public Relations Specialist Relationship Specialty Start Date End Date Arlen Golden, Polo Felton MD PCP - General Family Practice 03/29/14 documented as of this encounter
--- OUTSIDE RECORDS SUMMARY | 2024-11-19 09:12 | XMS_ITS | Encounter Summary ---
Author Organization [facility] Address [address] [place] [address] Care Team Providers Care Hand Sole Sewer Name Role Phone Carmelo Verduzco MD Primary Care Provider [phone] Encounter Details Date Type Department Care Team (Late st Contact Info) Description 03/08/2024 Hoot.Met Message Enc [facility] Family Medicine - [place] [address], [address] [place] [address] [place] [address] [place] [address] meds Social History Tobacco Use Types Packs/Day Years Used Date Smoking Tobacco: Never Passive Smoke Exposure: Past Smokeless Tobacco: Never Alcohol Use Standard Drinks/Week Comments No 0 (1 standard drink = 0.6 oz pur e alcohol) PHQ-2 Answer Date Recorded Patient Health Questionnaire-2 Score 2 08/26/2023 Comments No Sex and Gender Information Value Date Recorded Sex Assigned at Female 09/19/2024 1:27 PM PIANO MAKER Legal Sex Female 5:32 PM CDT Gender Identity Female 09/19/2024 1:27 PM PIANO MAKER Sexual Orientation Not on file documented as of this encounter Progress Notes * Maddison Zhong MA - 03/10/2024 11:59 AM CDT Calling patient to advise per Dr. Morales: I didn???t rx her Ozempic and do not do PAs for this without dx of DM You can let her know we could RX the Wellbutrin and naltrexone separately for cost if contrave isn???t covered Dr Verduzco said since she???s already on bid voltaren really the only option safe with naltrexone use for prn pain other than trmadol Is Tylenol, if she wants to see if this controls her pain so we can try contrave let me know. I???dwant her off the tramadol for at least a week prior to starting contrave anyway Pt vu and stated she will check with her insurance for cost on the medications. Once she does checkher options she will send us a Cometa message on what she would like to do. * Maddison Zhong MA - 03/10/2024 6:33 AM CDT Received a fax pa for patients Ozempic. Will advise Dr. Morales. It looks as if we are waiting to hear back from patient about stopping a medication for pain to start contrave. documented in this encounter Plan of Treatment Not on file documented as of this encounter Visit Diagnoses Not on filedocumented in this encounter Additional Health Concerns Assessment Noted Time PHQ-9 Depression Total Score: 0 10/18/19 22 8:13 AM CDT documented as of this encounter Care Teams Hand Sole Sewer Relationship Specialty Start Date End Date Carmelo Verduzco MD [address] [facility] [address] [place] [address] PCP - General FAMILY PRACTICE 11/11/17 documented as of this encounter
--- OUTSIDE RECORDS SUMMARY | 2024-11-19 09:12 | XMS_ITS | Encounter Summary ---
Author Organization [facility] Address [address] [place] [address] Care Team Providers Care Electrician Aircraft Name Role Phone Carmelo Verduzco MD Primary Care Provider [phone] Encounter Details Date Type Department Care Team (Late st Contact Info) Description 07/29/2023 PrivateFlyt Message Enc [facility] Family Medicine - [place] [address], [address] [place] [phone] Carmelo Verduzco MD [address] [facility] DANIEL [address] [place] [id number] Hand Specialist Social History Tobacco Use Types Packs/Day Years Used Date Smoking Tobacco: Never Smokeless Tobacco: Never Alcohol Use Standard Drinks/Week Comments No 0 (1 standard drink = 0.6 oz pur e alcohol) PHQ-2 Answer Date Recorded Patient Health Questionnaire-2 Score 0 08/05/2022 Comments No Sex and Gender Information Value Date Recorded Sex Assigned at Female 09/19/2024 1:27 PM MACHINE SCALLOP CUTTER Legal Sex Female 5:32 PM CDT Gender Identity Female 09/19/2024 1:27 PM MACHINE SCALLOP CUTTER Sexual Orientation Not on file documented as of this encounter Plan of Treatment Not on file documented as of this encounter Visit Diagnoses Not on filedocumented in this encounter Additional Health Concerns Assessment Noted Time PHQ-9 Depression Total Score: 0 10/18/19 22 8:13 AM CDT documented as of this encounter Care Teams Electrician Aircraft Relationship Specialty Start Date End Date Carmelo Verduzco MD [address] [facility] [address] [place] [address] PCP - General FAMILY PRACTICE 11/11/17 documented as of this encounter
--- OUTSIDE RECORDS SUMMARY | 2024-11-19 09:12 | XMS_ITS | Encounter Summary ---
Author Organization [facility] Address [address] [place] [address] Care Team Providers Care Infectious Disease Technician Name Role Phone Arlen Golden MD, Polo Felton Primary Care Provider Encounter Details Date Type Department Care Team (Late st Contact Info) Description 06/15/2008 Outpatient Historical [facility] Gabriel Jones MD NO ADDRESS ON FILE Social History Tobacco Use Types Packs/Day Years Used Date Smoking Tobacco: Never Assessed Comments Unknown Sex and Gender Information Value Date Recorded Sex Assigned at Not on file Legal Sex Female 5:37 AM VISITING NURSE Gender Identity Not on file Sexual Orientation Not on file documented as of this encounter Plan of Treatment Not on file documented as of this encounter Procedures Procedure Name Priority Date/Time Associated Diagnosis Comments US OB LTD 1 OR MORE FETUSES Timed Study 07/04/2008 11:47 AM VISITING NURSE documented in this encounter Results * US OB LTD 1 OR MORE FETUSES (07/04/2008 11:47 AM VISITING NURSE) Anatomical Region Laterality Modality Pelvis Other Narrative 07/04/2008 11:47 AM VISITING NURSE Results in [facility] Procedure Note 02/01/2009 Results in [facility] Gabriel Jones MD US ORDERABLES Final Result documented in this encounter Visit Diagnoses Not on filedocumented in this encounter Care Teams Infectious Disease Technician Relationship Specialty Start Date End Date Polo Mckinley Jr., MD PCP - General Family Practice 03/29/14 documented as of this encounter
--- OUTSIDE RECORDS SUMMARY | 2024-11-19 09:12 | XMS_ITS | Referral Summary ---
Author Organization [facility] Address [address] [place] [address] Care Team Providers Care Shake Splitter Name Role Phone Carmelo Verduzco MD Primary Care Provider [phone] Allergies Active Allergy Reactions Criticality Noted Date Comments Aloe Vera Rash Reaction: RASH Enoxaparin Hives,Rash,Urticaria Medium 01/31/2018 Heparin Hives,Rash,Unknown,Urticaria Medium 016 Rash Lidocaine Hives,Urticaria Medium 06/07/2018 Medications medroxyPROGESTER one (PROVERA) 10 mg tablet Take 1 tablet (10 mg total) by mouth daily for 10 days 10 tablet 03/22/2022 Active Social History Tobacco Use Types Packs/Day Years Used Date Smoking Tobacco: Never Assessed Personal Safety Answer Date Recorded Getting School Help Needed Not on file 10/09 Comments Unknown Sex and Gender Information Value Date Recorded Sex Assigned at Not on file Legal Sex Female 4:57 PM LINOLEUM TILE FLOOR LAYER Gender Identity Not on file Sexual Orientation Not on file Last Filed Vital Signs Vital Sign Reading Time Taken Comments Blood Pressure 119/82 03/22/2022 4:52 PM CDT Pulse 97 03/22/2022 4:52 PM CDT Temperature 37 C (98.6 F) 03/22/2022 2:49 PM CDT Respiratory Rate 18 03/22/2022 4:52 PM CDT Oxygen Saturation 96% 03/22/2022 4:52 PM CDT Inhaled Oxygen Concentration - - Weight 98.3 kg (216 lb 11.4 oz) 03/22/2022 2:49 PM CDT Height 160 cm (5' 3 ) 03/22/2022 2:49 PM CDT Body Mass Index 38.39 03/22/2022 2:49 PM CDT Plan of Treatment Not on file Insurance [facility] Member Subscriber Plan / Payer (Ef fective 2021-Present) Name:Maddison Gustafson Relation to Subscriber:Self Name:Maddison Gustafson Payer ID:[id number] (NAIC) Type:[facility] HMO/PPO Address: [place] [phone] Care Teams Shake Splitter Relationship Specialty Start Date End Date Carmelo Verduzco MD [address] [address] PCP - General Family Practice 03/22/22
--- OUTSIDE RECORDS SUMMARY | 2024-11-19 09:12 | XMS_ITS | Encounter Summary ---
Author Organization [facility] Address [address] [place] [address] Care Team Providers Care Internal Recruiter Name Role Phone Arlen Golden MD, Polo Felton Primary Care Provider Encounter Details Date Type Department Care Team (Late st Contact Info) Description 10/21/2008 Outpatient Historical [facility] Gabriel Jones MD NO ADDRESS ON FILE Social History Tobacco Use Types Packs/Day Years Used Date Smoking Tobacco: Never Assessed Comments Unknown Sex and Gender Information Value Date Recorded Sex Assigned at Not on file Legal Sex Female 5:37 AM OFFAL WORKER Gender Identity Not on file Sexual Orientation Not on file documented as of this encounter Plan of Treatment Not on file documented as of this encounter Visit Diagnoses Not on filedocumented in this encounter Care Teams Internal Recruiter Relationship Specialty Start Date End Date Polo Mckinley Jr., MD PCP - General Family Practice 03/29/14 documented as of this encounter
--- OUTSIDE RECORDS SUMMARY | 2024-11-19 09:12 | XMS_ITS | Encounter Summary ---
Author Organization [facility] Address [address] [place] [address] Care Team Providers Care Marine Cargo Surveyor Name Role Phone Arlen Golden MD, Polo Felton Primary Care Provider Encounter Details Date Type Department Care Team (Late st Contact Info) Description 03/31/2008 Outpatient Historical [facility] PATIENT IN A BED Marciano Grissom MD [address] [place] [phone] Linda Barrientos MD [address] [place] [phone] Social History Tobacco Use Types Packs/Day Years Used Date Smoking Tobacco: Never Assessed Comments Unknown Sex and Gender Information Value Date Recorded Sex Assigned at Not on file Legal Sex Female 5:37 AM BEEKEEPER Gender Identity Not on file Sexual Orientation Not on file documented as of this encounter Plan of Treatment Not on file documented as of this encounter Procedures Procedure Name Priority Date/Time Associated Diagnosis Comments HCG QUANTITATIVE, BLOOD Stat 03/31/2008 9:24 PM CDT documented in this encounter Results * (ABNORMAL) HCG QUANTITATIVE, BLOOD (03/31/2008 9:24 PM CDT) HCG QUANT, BLOOD 36,980(H) 0 - 5 mIU/mL [facility] Comment: Result of 5 - 25 mIU/mL is indeterminant for , repeat of test recommemded in 48 hours. Reference Range: Gestational Age: 3 Weeks 5.8 - 71.2 mIU/mL 4 Weeks 9.5 - 750 mIU/mL 5 Weeks 217 - 7138 mIU/mL 6 Weeks 158 - 31,795 mIU/mL 7 Weeks 3697 - 163,563 mIU/mL 8 Weeks 32,065 - 149,571 mIU/mL 9 Weeks 63,803 - 151,410 mIU/mL 10 Weeks 46,509 - 186,977 mIU/mL 12 Weeks 27,832 - 210,612 mIU/mL 14 Weeks 13,950 - 62,530 mIU/mL 15 Weeks 12,039 - 70,971 mIU/mL 16 Weeks 9040 - 56,451 mIU/mL 17 Weeks 8175 - 55,868 mIU/mL 18 Weeks 8099 - 58,176 mIU/mL Heterophile antibodies and other interfering substances in the serum of some patients may cause a false-positive result in this assay. Before making a diagnosis of malignancy or etopic ,the result of this test should be confirmed with a urine HCG test and correlated with other clinical evidence. Blood specimen (specimen) 03/31/2008 9:24 PM CDT 03/31/2008 9:31 PM CDT us Marciano Grissom MD CHEMISTRY ORDERABLES E dited INTERFACE SYSTEM Refer to clinic/hospital department [facility] CLIA# [id number] [address] [place] [address] documented in this encounter Visit Diagnoses Not on filedocumented in this encounter Care Teams Marine Cargo Surveyor Relationship Specialty Start Date End Date Polo Mckinley Jr., MD PCP - General Family Practice 03/29/14 documented as of this encounter
--- OUTSIDE RECORDS SUMMARY | 2024-11-19 09:12 | XMS_ITS | Clinical Summary ---
Author Organization [facility] Address [address] [place] [address] Care Team Providers Care Client Services Administrator Name Role Phone Carmelo Walters MD Primary Care Provider [phone] Allergies Active Allergy Reactions Criticality Noted Date Comments Aloe Rash Low 09/28/2013 Enoxaparin Rash,Hives Medium 01/31/2018 Heparin Rash,Unknown,Hives Medium 09/21/2017 Lidocaine Hives Medium 06/07/2018 Medications fenofibrate 160 MG tabletIndications:M ixed hyperlipidemia take 1 tablet by mouth every day 90 tablet 3 4 Active escitalopram (LEXAPRO) 20 MG tabletIndications:A nxiety take 1 tablet by mouth every day 90 tablet 3 4 Active nitrofurantoin, macrocrystal-monohy drate, (MACROBID) 100 MG capsuleIndications: Recurrent UTI Take 1 capsule (100 mg total) by mouth daily as needed. 30 capsule 4 Active traMADol (ULTRAM) 50 MG tabletIndications:A cute Pain < 7 Day Supply Take 1 tablet (50 mg total) by mouth every 6 (six) hours as needed for Pain. Indications: Acute Pain < 7 Day Supply 20 tablet 4 Active guaiFENesin-codeine (GUAIFENESIN AC) 100-10 MG/5ML syrupIndications:Co ugh Take 5 mLs by mouth every 4 (four) hours as needed. Indications: Cough 118 mL 5 Active methylPREDNISolone, SALEEM, (MEDROL DOSEPAK) 4 MG tabletIndications:A llergic reaction 6 TABLETS ON DAY ONE, 5 TABLETS DAY TWO, 4 TABLETS DAY THREE, 3 TABLETS DAY FOUR, 2 TABLETS DAY FIVE, AND 1 TABLET DAY SIX 1 each 5 Active diclofenac EC (VOLTAREN) 75 MG tabletIndications:P rimary osteoarthritis of both hands TAKE 1 TABLET BY MOUTH TWICE A DAY 180 tablet 5 Active Active Problems Problem Noted Date Diagnosed Date Class 3 severe obesity due t o excess calories without serious comorbidity with body mass index (BMI) of 40.0 to 44.9 in adult 03/08/2024 Trigger finger of left thumb 01/13/2024 Trigger ring finger of left hand 01/13/2024 Trigger little finger of left hand 01/13/2024 Carpal tunnel syndrome on left 10/12/2023 Cubital tunnel syndrome on left 10/12/2023 Menorrhagia with irregular cycle 04/09/2023 MTHFR mutation 01/29/2022 Recurrent UTI 01/29/2022 PCOS (polycystic ovarian syndrome) 01/29/2022 Chronic migraine without aur a without status migrainosus, not intractable 01/29/2022 Seborrheic dermatitis 01/29/2022 Urinary incontinence in female 04/01/2018 De Quervain's tenosynovitis 09/21/2017 Seasonal allergic rhinitis 09/20/2015 Lumbar radiculopathy 05/16/2015 Anxiety 09/28/2013 Hyperlipidemia 09/28/2013 Vitamin D deficiency 09/28/2013 Resolved Problems Problem Noted Date Diagnosed Date Resolved Date Encounter for screening colonoscopy 01/25/2024 02/01/2024 Encounter for screening colonoscopy 01/25/2024 03/07/2024 Encounter for screening colonoscopy 01/25/2024 04/04/2024 Encounter for screening colonoscopy 01/25/2024 04/11/2024 Screening for colon cancer 09/30/2023 0 10/05/2023 Screening for colon cancer 09/30/2023 0 01/25/2024 Screening for colon cancer 08/04/2023 0 08/10/2023 Screening for colon cancer 08/04/2023 0 08/31/2023 Bulging lumbar disc 02/15/2018 04/25/20 21 Lumbar spondylolysis 02/15/2018 021 Back pain 02/03/2018 04/25/2021 Stress incontinence, female 08/05/2017 04/25/2021 Sciatica 04/27/2015 04/25/2021 Inflamed seborrheic keratosis 06/28/2014 04/25/2021 Hypothyroidism 03/28/2014 04/25/2021 Encounters Date Type Department Care Team Description 10/21/2024 12:45 PM CDT Office Visit [facility] Occupational Therapy [address] [place] [address] Omero Cedillo MD Pratt, Robin M, OTR Finger pain 10/21/2024 Travel 10/11/2024 9:20 AM CDT Office Visit [facility]opedic [facility] [address] [place] [address] Omero Cedillo MD Follow Up (Left hand pinky finger pain) 10/11/2024 Travel 10/10/2024 MyChart Message Enc [facility] [address], [address] [place] [phone] Carmelo Walters MD Allergic or Something 10/04/2024 MyChart Message Enc [facility] [address] [place] [address] Omero Cedillo MD Pain in left hand 10/03/2024 Telephone [facility] [address] [place] [address] Omero Cedillo MD Appointment Request 09/19/2024 1:00 PM PETROLEUM REFINING EQUIPMENT OPERATOR Office Visit [facility] [address], [address] [place] [phone] Carmelo Walters MD Flu Like Symptoms (Pt presents today for flu like symptoms. Pts daughter was positive for flu A 1 week ago. Pt has hoarse throat, diarrhea, chills, fever, fatigue, side and stomach pain from coughing. She has tried everything she could OTC and nothing helps. Sx stated 10-14 days ago. ) 09/19/2024 Travel from Last 3 Months Immunizations Immunization Administration Dates Next Due Fluzone 6 Months+ Quad (0.5 mL Prefilled Syringe ) 04/25/2021 Influenza Adult (Generic) 05/11/2022 Td 04/03/2000 Tdap (Adacel) 04/25/2021 Tdap (Generic) 08/01/2010 Family History Medical History Relation Comments Cancer Father Hypertension Father Cancer Maternal Grandfather Arthritis Maternal Grandmother Breast Cancer Mother Cancer Mother Hypertension Mother Breast Cancer Other 1 great grandmothe r maternal Breast Cancer Other 2 aunt maternal Relation Status Comments Brother Daughter Alive Father Alive skin Maternal Grandfather Maternal Grandmother Mother Alive Other 1 Other 2 Sister Alive Social History Tobacco Use Types Packs/Day Years Used Date Smoking Tobacco: Never Passive Smoke Exposure: Past Smokeless Tobacco: Never Tobacco Cessation:Counseling Given: No Alcohol Use Standard Drinks/Week Comments No 0 (1 standard drink = 0.6 oz pur e alcohol) PHQ-2 Answer Date Recorded Patient Health Questionnaire-2 Score 0 09/19/2024 Comments No Sex and Gender Information Value Date Recorded Sex Assigned at Female 09/19/2024 1:27 PM PETROLEUM REFINING EQUIPMENT OPERATOR Legal Sex Female 5:32 PM CDT Gender Identity Female 09/19/2024 1:27 PM PETROLEUM REFINING EQUIPMENT OPERATOR Sexual Orientation Not on file Last Filed Vital Signs Vital Sign Reading Time Taken Comments Blood Pressure 136/78 10/11/2024 10:08 AM CDT Pulse 66 10/11/2024 10:08 AM CDT Temperature 36.1 C (96.9 F) 10/11/2024 9:26 AM CDT Respiratory Rate 20 09/19/2024 1:21 PM PETROLEUM REFINING EQUIPMENT OPERATOR Oxygen Saturation 97% 09/19/2024 1:21 PM PETROLEUM REFINING EQUIPMENT OPERATOR Inhaled Oxygen Concentration - - Weight 95.9 kg (211 lb 6.4 oz) 10/11/2024 9:26 A M CDT Height 157.5 cm (5' 2 ) 10/11/2024 9:26 AM CDT p t states Body Mass Index 38.67 10/11/2024 9:26 AM CDT Plan of Treatment Health Maintenance Due Date Last Done Comments Hepatitis B Vaccines (1 of 3 - 19+ 3-dose series) 1995 Annual Physical 03/10/2024 03/10/2023, 04/25/2021 COVID-19 Vaccine ( season) 2024 11/23/2020, 11/02/2020 Mammogram Screening 04/09/2026 04/09/2024, 03/14/2023, 03/10/2022, Additional history exists DTaP, Tdap and Td Vaccines (3 - Td or Tdap) 04/25/2031 04/25/2021, 08/01/2010, 04/03/2000 Colorectal Cancer Screening Colonoscopy (10 Years) 04/11/2034 04/11/2024, 04/11/2024 Hepatitis C Completed 03/10/2023 PHQ-2 (Physician [place]) Completed 09/19/2024 Meningococcal B Vaccine Aged Out No l onger eligible based on patient's age to complete this topic Meningococcal Vaccine Aged Out No rupa carlos eduardo eligible based on patient's age to complete this topic Pneumococcal Vaccine: Pediatrics (0 to 5 Years) and At-Risk Patients (6 to 49 Years) Aged Out No longer eligible based on patient's age to complete this topic RSV Immunizations Under 20 Months Aged Out No longer eligible based on patient's age to complete this topic Medical Devices Implanted Type Area Economic Geographer Device Identifier Shelf Expiration Date Model / Serial / Lot Sling Obtryx Ii Halo - [id number] Implanted:Qty : 1 on 04/09/2023 by Channing Macdonald MD at [facility] Sling N/A: Urinary Bladder [employer] [id number] 12/28/2025 [id number] / / [id number] Procedures Procedure Name Priority Date/Time Associated Diagnosis Comments COLONOSCOPY Routine 04/11/2024 11:24 AM CDT MG SCREENING W DUC JACY DIGI Routine 04/09/2024 10:02 AM CDT Screening mammogram, encounter for HEPATITIS C ANTIBODY W/RFX TO HCV RNA Routine 03/10/2023 2:06 PM CDT Healthcare maintenance Primary osteoarthritis of both hands Recurrent UTI PCOS (polycystic ovarian syndrome) Mixed hyperlipidemia MTHFR mutation Chronic migraine without aura without status migrainosus, not intractable Vitamin D deficiency Screening for diabetes mellitus Encounter for hepatitis C screening test for low risk patient Screening cholesterol level Screen for colon cancer from Last 3 Months or Most Recently Relevant to Health Maintenance Results * MG SCREENING W DUC JACY DIGI (04/09/2024 10:02 AM CDT) Anatomical Region Laterality Modality Breast Bilateral Mammography 04/11/2024 7:12 AM CDT Impressions 04/11/2024 7:14 AM CDT ===== IMPRESSION: ===== 1. Stable mammographic appearance with no new findings to suggest malignancy in either breast. Assessment: ACR BI-RADS 2 - BENIGN FINDING(S) Recommendation: 1:Routine Screening Bilateral Comments: Ordered By: CARMELO WALTERS Interpreted By: uJlian Jenkins MD, 04/11/2024 7:12 AM Narrative 04/11/2024 7:14 AM CDT [address] [address] Examination: Digital bilateral screening mammogram with 3D Tomosynthesis Exam Date/Time: 04/09/2024 9:47 AM Reason For Exam: Screening Mammogram No prior breast procedures. No personal history of breast cancer. Breast cancer in mother at age 47. No current complaints. Comparison: Mammograms from 03/14/2023 03/10/2022 03/09/2021 Technique: Digital screening mammography of both breasts was performed in addition to 3-D Tomosynthesis technique. This study was read with the assistance of a computer-aided detection system. Tissue density: There are scattered areas of fibroglandular density. Findings: Benign bilateral axillary lymph nodes. No suspicious interval change in parenchymal pattern from prior studies. There is no new focal asymmetry, dominant mass lesion, area of skin thickening, or cluster of suspicious appearing calcifications in either breast to suggest malignancy. us Carmelo Walters MD MAMMO Final Result * HEPATITIS C ANTIBODY W/RFX TO HCV RNA (03/10/2023 2:06 PM CDT) HEPATITIS C AB NON-REACT BLANCA NON-REACT BLANCA [facility] [employer] [facility] [facility] Comment: HCV antibody was non-reactive. There is no laboratory evidence of HCV infection. In most cases, no further action is required. However, if recent HCV exposure is suspected, a test for HCV RNA (test code 75772) is suggested. For additional information please refer to http://education.SetMeUp/faq/SFR90t9 (This link is being provided for informational/ educational purposes only.) 03/10/2023 2:06 PM CDT 03/10/2023 2:08 PM CDT Narrative [facility] - 03/15/2023 5:53 PM CDT FASTING:YES FASTING: YES Resulting Agency Comment Performing Organization Information: Site ID: [id number] Name: [email or web address] Address: [address] [place] [address] Director: Kevin Garcia MD us Carmelo Walters MD LABORATORY Final Result [facility] [employer] [facility] [address] [place], [place] [address] from Last 3 Months or Most Recently Relevant to Health Maintenance Insurance [employer] Advance Directives * Full Code (Latest Code Status on File) Date Activated Date Inactivated Comments 04/09/2023 1:10 PM 04/10/2023 4:48 PM * Full Code Date Activated Date Inactivated Comments 02/03/2018 10:58 AM 02/04/2018 1:14 PM Care Teams Client Services Administrator Relationship Specialty Start Date End Date Carmelo Walters MD [address] [facility] [address] [place] [address] PCP - General FAMILY PRACTICE 11/11/17
--- OUTSIDE RECORDS SUMMARY | 2024-11-19 09:12 | XMS_ITS | Encounter Summary ---
Author Organization [facility] Address [address] [place] [address] Care Team Providers Care Bunch Maker Hand Name Role Phone Carmelo Verduzco MD Primary Care Provider [phone] Encounter Details Date Type Department Care Team (Late st Contact Info) Description 08/31/2023 [employer] Message Enc [facility] Family Medicine - [place] [address] [facility], [address] [place] [phone] Carmelo Verduzco MD [address] [facility] [address] [address] [place] [address] [phone] [facility] Referral Social History Tobacco Use Types Packs/Day Years Used Date Smoking Tobacco: Never Smokeless Tobacco: Never Alcohol Use Standard Drinks/Week Comments No 0 (1 standard drink = 0.6 oz pur e alcohol) PHQ-2 Answer Date Recorded Patient Health Questionnaire-2 Score 2 08/26/2023 Comments No Sex and Gender Information Value Date Recorded Sex Assigned at Female 09/19/2024 1:27 PM SCOURING MACHINE TENDER Legal Sex Female 5:32 PM CDT Gender Identity Female 09/19/2024 1:27 PM SCOURING MACHINE TENDER Sexual Orientation Not on file documented as of this encounter Plan of Treatment Not on file documented as of this encounter Visit Diagnoses Not on filedocumented in this encounter Additional Health Concerns Assessment Noted Time PHQ-9 Depression Total Score: 0 10/18/19 22 8:13 AM CDT documented as of this encounter Care Teams Bunch Maker Hand Relationship Specialty Start Date End Date Carmelo Verduzco MD [address] [facility] [address] [place] [address] PCP - General FAMILY PRACTICE 11/11/17 documented as of this encounter
--- OUTSIDE RECORDS SUMMARY | 2024-11-19 09:12 | XMS_ITS | Encounter Summary ---
Author Organization [facility] Address [address] [place] [address] Care Team Providers Care Non Destructive Tester Name Role Phone Carmelo Verduzco MD Primary Care Provider [phone] Encounter Details Date Type Department Care Team (Late st Contact Info) Description 03/16/2023 [employer] Message Enc [facility] Medical Group Family Medicine - [place] [address] [facility], [address] [place] [phone] Carmelo Verduzco MD [address] [facility] [address] [place] [address] [phone] Test Results Social History Tobacco Use Types Packs/Day Years Used Date Smoking Tobacco: Never Smokeless Tobacco: Never Alcohol Use Standard Drinks/Week Comments No 0 (1 standard drink = 0.6 oz pur e alcohol) PHQ-2 Answer Date Recorded Patient Health Questionnaire-2 Score 0 08/05/2022 Comments No Sex and Gender Information Value Date Recorded Sex Assigned at Female 09/19/2024 1:27 PM DUPLICATOR PUNCH SET UP OPERATOR Legal Sex Female 5:32 PM CDT Gender Identity Female 09/19/2024 1:27 PM DUPLICATOR PUNCH SET UP OPERATOR Sexual Orientation Not on file documented as of this encounter Plan of Treatment Not on file documented as of this encounter Visit Diagnoses Not on filedocumented in this encounter Additional Health Concerns Assessment Noted Time PHQ-9 Depression Total Score: 0 10/18/19 22 8:13 AM CDT documented as of this encounter Care Teams Non Destructive Tester Relationship Specialty Start Date End Date Carmelo Verduzco MD [address] [facility] [address] [place] [address] PCP - General FAMILY PRACTICE 11/11/17 documented as of this encounter
--- OUTSIDE RECORDS SUMMARY | 2024-11-19 09:12 | XMS_ITS | Encounter Summary ---
Author Organization [employer] Address [address] [place] [address] Care Team Providers Care Road Supervisor Name Role Phone Arlen Golden MD, Polo Felton Primary Care Provider Encounter Details Date Type Department Care Team (Late st Contact Info) Description 04/12/2008 Outpatient Historical [facility] Gabriel Jones MD NO ADDRESS ON FILE Social History Tobacco Use Types Packs/Day Years Used Date Smoking Tobacco: Never Assessed Comments Unknown Sex and Gender Information Value Date Recorded Sex Assigned at Not on file Legal Sex Female 5:37 AM ELEVATOR PILOT Gender Identity Not on file Sexual Orientation Not on file documented as of this encounter Plan of Treatment Not on file documented as of this encounter Procedures Procedure Name Priority Date/Time Associated Diagnosis Comments US OB LTD 1 OR MORE FETUSES Timed Study 05/09/2008 1:34 PM CDT US OB LTD 1 OR MORE FETUSES Timed Study 04/24/2008 12:10 PM CDT US OB LTD 1 OR MORE FETUSES Timed Study 04/12/2008 10:04 AM CDT documented in this encounter Results * US OB LTD 1 OR MORE FETUSES (05/09/2008 1:34 PM CDT) Anatomical Region Laterality Modality Pelvis Other Narrative 05/09/2008 1:34 PM CDT Results in [employer] Procedure Note 02/01/2009 Results in [employer] Gabriel Jones MD US ORDERABLES Final Result * US OB LTD 1 OR MORE FETUSES (04/24/2008 12:10 PM CDT) Anatomical Region Laterality Modality Pelvis Other Narrative 04/24/2008 12:10 PM CDT Results in [employer] Procedure Note 02/01/2009 Results in [employer] Gabriel Jones MD US ORDERABLES Final Result * US OB LTD 1 OR MORE FETUSES (04/12/2008 10:04 AM CDT) Anatomical Region Laterality Modality Pelvis Other Narrative 04/12/2008 10:04 AM CDT Results in [employer] Procedure Note 02/01/2009 Results in [employer] us Gabriel Jones MD US ORDERABLES Final Result documented in this encounter Visit Diagnoses Not on filedocumented in this encounter Care Teams Road Supervisor Relationship Specialty Start Date End Date Polo Mckinley Jr., MD PCP - General Family Practice 03/29/14 documented as of this encounter
--- OUTSIDE RECORDS SUMMARY | 2024-11-19 09:12 | XMS_ITS | Clinical Summary ---
Author Organization [facility] Address [address] [place] [phone] Care Team Providers Care Ocular Care Technician Name Role Phone Arlen Golden MD, Polo Felton Primary Care Provider Family History Medical History Relation Name Comments Breast Cancer Mother Breast Cancer Other 2 mat gr aunt Relation Name Status Comments Mother Other 2 mat gr aunt Alive Social History Tobacco Use Types Packs/Day Years Used Date Smoking Tobacco: Never Assessed Comments Unknown Sex and Gender Information Value Date Recorded Sex Assigned at Not on file Legal Sex Female 5:37 AM CHURNER Gender Identity Not on file Sexual Orientation Not on file Occupation Industry Job Start Date Job End Date Not on file Not on file Not on file Not on file Plan of Treatment Health Maintenance Due Date Last Done Comments DTAP/TDAP/TD VACCINES (1 - Tdap) 1995 HEPATITIS B VACCINES (1 of 3 - 19+ 3-dose series) 1995 HPV/Cotest (21-29) 1997 CERVICAL CANCER SCREENING 2006 HPV/Cotest (30-65) 2006 PAP SMEAR 2006 BREAST CANCER SCREENING 2016 05/03/20 15, 03/29/2014, 04/11/2013, Additional history exists COLORECTAL SCREENING 2021 Colorectal Cancer Screening 2021 FIT-DNA Q 3 years 2021 FIT/FOBT Q 1 year 2021 Flex Sig/CT Colonography Q 5 years 2021 INFLUENZA VACCINE (#1) 2024 Procedures Procedure Name Priority Date/Time Associated Diagnosis Comments MAMMO SCREEN BILAT W OR WO CAD Routine 05/03/2015 5:39 PM CDT Visit for screening mammogram from Last 3 Months or Most Recently Relevant to Health Maintenance Results * MAMMO DIGITAL SCREEN BILAT (05/03/2015 5:39 PM CDT) Anatomical Region Laterality Modality Breast Bilateral Mammography Narrative 05/04/2015 8:21 AM CDT Bilateral digital screening mammogram with computer assisted diagnosis History: Annual screening exam. Findings: A bilateral screening mammogram was performed. Comparison is made to : 03/29/2014, 04/11/2013, 03/02/2012 There are scattered fibroglandular densities. No new masses, suspicious calcifications, or areas of asymmetry or distortion are identified. CAD was utilized. Impression: Negative screening mammogram. Recommendation: Routine annual follow-up Overall Assessment: Birads Category 1: Negative Marciano Grissom MD MAMMO ORDERABLES Final Result from Last 3 Months or Most Recently Relevant to Health Maintenance Insurance Care Teams Ocular Care Technician Relationship Specialty Start Date End Date Polo Mckinley Jr., MD PCP - General Family Practice 03/29/14
--- OUTSIDE RECORDS SUMMARY | 2024-11-19 09:12 | XMS_ITS | Encounter Summary ---
Author Organization [facility] Address [address] [place] [address] Care Team Providers Care Rail Technician Name Role Phone Carmelo Verduzco MD Primary Care Provider [phone] Encounter Details Date Type Department Care Team (Late st Contact Info) Description 12/02/2019 Prep for Procedure [facility] [place], [place] [phone] Wayne Draper MD [address] [place] [address] Social History Tobacco Use Types Packs/Day Years Used Date Smoking Tobacco: Never Smokeless Tobacco: Never Alcohol Use Standard Drinks/Week Comments No 0 (1 standard drink = 0.6 oz pur e alcohol) Comments No Sex and Gender Information Value Date Recorded Sex Assigned at Female 09/19/2024 1:27 PM DENTAL PATIENT COORDINATOR Legal Sex Female 5:32 PM CDT Gender Identity Female 09/19/2024 1:27 PM DENTAL PATIENT COORDINATOR Sexual Orientation Not on file COVID-19 Exposure Response Date Recorded In the last month, have you been in contact with someone who was confirmed or suspected to have Coronavirus / COVID-19? No / Unsure 11/29/2019 10:59 AM CDT documented as of this encounter Plan of Treatment Not on file documented as of this encounter Results * PRE-SURGICAL/PRE-PROCEDURE CORONAVIRUS (COVID 19) (12/03/2019 10:20 AM CDT) CORONAVIRUS SARS COV 2 PCR (RESP) NOT DETECTED NOT DETECTED 12/05/2019 8:52 AM CDT [facility] NASOPHARYNGEAL SWAB / Unknown 12/03/2019 10:20 AM CDT us Wayne Draper MD MICROBIOLOGY - GENERAL ORDERABL ES Final Result [facility] [address] [place] [address], documented in this encounter Visit Diagnoses Diagnosis Preop examination- Primary Preoperative examination, unspecified documented in this encounter Additional Health Concerns Infection Onset Date Last Indicated Resolved Time COVID-19 Rule Out 12/03/2019 12/03/2019 12/05/2019 8:52 AM CDT documented as of this encounter Care Teams Rail Technician Relationship Specialty Start Date End Date Carmelo Verduzco MD [address] [facility] [address] [place], [place] [phone] PCP - General FAMILY PRACTICE 11/11/17 documented as of this encounter
--- OUTSIDE RECORDS SUMMARY | 2024-11-19 09:12 | XMS_ITS | Encounter Summary ---
Author Organization [employer] Address [address] [place] [address] Care Team Providers Care Aquaculture Farm Manager Name Role Phone Arlen Golden MD, Polo Felton Primary Care Provider Encounter Details Date Type Department Care Team (Late st Contact Info) Description 07/17/2008 Outpatient Historical [facility] Gabriel Jones MD NO ADDRESS ON FILE Social History Tobacco Use Types Packs/Day Years Used Date Smoking Tobacco: Never Assessed Comments Unknown Sex and Gender Information Value Date Recorded Sex Assigned at Not on file Legal Sex Female 5:37 AM WINDOW CLERK Gender Identity Not on file Sexual Orientation Not on file documented as of this encounter Plan of Treatment Not on file documented as of this encounter Procedures Procedure Name Priority Date/Time Associated Diagnosis Comments US OB LTD 1 OR MORE FETUSES Timed Study 08/01/2008 11:07 AM WINDOW CLERK documented in this encounter Results * US OB LTD 1 OR MORE FETUSES (08/01/2008 11:07 AM WINDOW CLERK) Anatomical Region Laterality Modality Pelvis Other Narrative 08/01/2008 11:07 AM WINDOW CLERK Results in [employer] Procedure Note 02/01/2009 Results in [employer] Gabriel Jones MD US ORDERABLES Final Result documented in this encounter Visit Diagnoses Not on filedocumented in this encounter Care Teams Aquaculture Farm Manager Relationship Specialty Start Date End Date Polo Mckinley Jr., MD PCP - General Family Practice 03/29/14 documented as of this encounter
--- OUTSIDE RECORDS SUMMARY | 2024-11-19 09:12 | XMS_ITS | Encounter Summary ---
Author Organization [facility] Address [address] [place] [address] Care Team Providers Care Retail Link Analyst Name Role Phone Arlen Golden MD, Polo Felton Primary Care Provider Encounter Details Date Type Department Care Team (Late st Contact Info) Description 10/18/2008 Outpatient Historical [facility] Marciano Grissom MD [address] [place] [phone] Normal Delivery Social History Tobacco Use Types Packs/Day Years Used Date Smoking Tobacco: Never Assessed Comments Unknown Sex and Gender Information Value Date Recorded Sex Assigned at Not on file Legal Sex Female 5:37 AM FRUIT HARVESTER Gender Identity Not on file Sexual Orientation Not on file documented as of this encounter Plan of Treatment Not on file documented as of this encounter Procedures Procedure Name Priority Date/Time Associated Diagnosis Comments PATHOLOGY Routine 10/20/2008 2:53 PM CDT CBC WITH DIFFERENTIAL Stat 10/19/2008 1:19 PM CDT TYPE AND SCREEN Routine 10/19/2008 1:19 PM CDT documented in this encounter Results * PATHOLOGY (10/20/2008 2:53 PM CDT) FINAL REPORT [address] [address] Patient: MADDISON PHILLIPS : 1975 Procedure Date: 10/20/2008 Accession Date: 10/20/2008 Case No: [id number] Ordering Dr: MARCIANO GRISSOM Case types AW, BW, FW, NW and SH are performed by [facility], [place], [place] SURGICAL PATHOLOGY & NON-GYNECOLOGIC CYTOPATHOLOGY REPORT DIAGNOSIS PLACENTA, SECTION DELIVERY: - SUBCHORIONIC THROMBOHEMATOMA, FOCAL. - PERIVILLOUS FIBRIN DEPOSITION, FOCAL. Specimen Description: Placenta. Operative Procedure: Low transverse section. Patient Information/Histor y/Diagnosis: Intrauterine at 39 weeks. Poor obstetrical history. Multiple losses. Gross: Received in a single container labeled Maddison Phillips, placenta is a 24 x 19.3 x 1.5-cm placenta with a trimmed weight of 427 g. The umbilical cord measures 1.5 cm in maximal diameter, contains three vessels, and is received in two segments. A 28.4-cm segment inserts 4.5 cm from the closest placental margin. The other segment measures 14 cm. The membranes are pink-gordon and translucent. The point of membrane rupture is at the margin. The surface is pink-blue with multiple small ill-defined white plaques. The maternal surface demonstrates intact cotyledons without adherent, deforming blood clot. The placenta is serially sectioned, revealing dark red parenchyma with foci of subchorionic fibrin deposition. No other focal lesions are seen. Sections are submitted as follows: A1-cord and membranes; A2-placenta with subchorionic fibrin deposition; A3 and A4- unremarkable disc. [facility] 10.20.2008 06:44 pm Microscopic: The slides are labeled [id number]. Sections display no intrinsic abnormalities in membranes or umbilical cord. Subchorionic thrombohematoma is present. There are focal areas of basilar perivillous fibrin deposition, which do not appear excessive in amount. [facility] 10.24.2008 10:56 am Staging Form: No ELECTRONIC SIGNATURE FOR YOSEPH FELTON M.D.- 10/24/08 02:25 pm INTERFACE SYSTEM 10/20/2008 2:53 PM CDT us Marciano Grissom MD PATHOLOGY/CYTOLOGY ORD ERABLES Final Result INTERFACE SYSTEM Refer to clinic/hospital department * TYPE AND SCREEN (10/19/2008 1:19 PM CDT) HISTORY CHECK No Historical ABO/Rh [facility] SPECIMEN LIFE 3 days from drawdate [facility] ABO/RH TYPE A Positive [facility] ANTIBODY SCREEN Negative [facility] Blood specimen (specimen) 10/19/2008 1:19 PM CDT Marciano Grissom MD BLOOD BANK ORDERABLES Edited Performing Organization Address [facility] Co de Phone Number INTERFACE SYSTEM Refer to clinic/hospital department [facility] CLIA# [id number] [address] [place] [address] * (ABNORMAL) CBC WITH DIFFERENTIAL (10/19/2008 1:19 PM CDT) HEMATOCRIT 39.3 35.5 - 44.0 % [facility] RDW-STDEV 46.6 37.1 - 48.7 fL [facility] RBC 4.37 3.90 - 4.90 M/uL [facility] MCHC 33.6 31.5 - 35.5 % [facility] MCV 89.9 82.0 - 99.0 fL [facility] PLATELETS 211 140 - 350 K/uL [facility] HEMOGLOBIN 13.2 11.8 - 14.8 g/dL [facility] RDW 14.2 11.5 - 14.5 % [facility] WBC 10.0(H) 4.0 - 9.8 K/uL [facility] MCH 30.2 27.2 - 32.6 pg [facility] MPV 11.0 9.3 - 12.4 fL [facility] BASOPHILS 0 0 - 2 % [facility] BASOPHILS ABSOLUTE 0.01 0.00 - 0.20 K/uL [facility] MONOCYTES 7 3 - 13 % [facility] MONOCYTE ABSOLUTE 0.66 0.10 - 1.30 K/uL [facility] NEUTROPHILS 71(H) 45 - 70 % [facility] NEUTROPHIL ABSOLUTE 7.08(H) 1.90 - 7.00 K/uL [facility] EOSINOPHILS 0 0 - 7 % [facility] EOSINOPHIL ABSOLUTE 0.03 0.00 - 0.70 K/uL [facility] LYMPHOCYTES 22 16 - 45 % [facility] LYMPHOCYTE ABSOLUTE 2.24 0.70 - 4.50 K/uL [facility] Blood specimen (specimen) 10/19/2008 1:19 PM CDT 10/19/2008 1:34 PM CDT us Marciano Grissom MD HEMATOLOGY ORDERABLES Edited INTERFACE SYSTEM Refer to clinic/hospital department [facility] CLIA# [id number] [address] [place] [address] documented in this encounter Visit Diagnoses Diagnosis Normal delivery documented in this encounter Care Teams Retail Link Analyst Relationship Specialty Start Date End Date Polo Mckinley Jr., MD PCP - General Family Practice 03/29/14 documented as of this encounter
--- OUTSIDE RECORDS SUMMARY | 2024-11-19 09:12 | XMS_ITS | Encounter Summary ---
Author Organization [facility] Address [address] [place] [address] Care Team Providers Care Director Environmental Name Role Phone Carmelo Verduzco MD Primary Care Provider [phone] Encounter Details Date Type Department Care Team (Late st Contact Info) Description 03/02/2022 [employer] Message Enc [facility] Medical Group Family Medicine - [place] [address] [facility], [address] [place] [phone] Carmelo Verduzco MD [address] [facility] [address] [address] [place] [phone] Shirin menopause Social History Tobacco Use Types Packs/Day Years Used Date Smoking Tobacco: Never Smokeless Tobacco: Never Alcohol Use Standard Drinks/Week Comments No 0 (1 standard drink = 0.6 oz pur e alcohol) PHQ-2 Answer Date Recorded PHQ-2 Score - If the patient scores above 3, please move on to questions 3-9 0 10/17/2021 Comments No Sex and Gender Information Value Date Recorded Sex Assigned at Female 09/19/2024 1:27 PM WIRE COINER Legal Sex Female 5:32 PM CDT Gender Identity Female 09/19/2024 1:27 PM WIRE COINER Sexual Orientation Not on file documented as of this encounter Plan of Treatment Not on file documented as of this encounter Visit Diagnoses Not on filedocumented in this encounter Additional Health Concerns Assessment Noted Time PHQ-9 Depression Total Score: 0 10/18/19 22 8:13 AM CDT documented as of this encounter Care Teams Director Environmental Relationship Specialty Start Date End Date Carmelo Verduzco MD [address] [address] PCP - General FAMILY PRACTICE 11/11/17 documented as of this encounter
--- OUTSIDE RECORDS SUMMARY | 2024-11-19 09:12 | XMS_ITS | Clinical Summary ---
Author Organization [facility] Address [address] [place] [address] Care Team Providers Care Print Shop Stenographer Name Role Phone Carmelo Verduzco MD Primary Care Provider [phone] Allergies Active Allergy Reactions Criticality Noted Date [...] on file Legal Sex Female 4:57 PM ASSET PROTECTION GREETER Gender Identity Not on file Sexual Orientation [...] 03/22/2022 2:49 PM CDT Plan of Treatment Health Maintenance Due Date Last Done Comments Cervical Cancer Screening 1975 Colon Cancer Screening-Colonoscopy 1975 Depression Screening 1975 Hepatitis C Screening 1975 Hepatitis B Screening 1994 Regular Well Visit/Exam 18-64 1994 Breast Cancer Screening-Mammogram 03/14/2024 03/14/2023, 03/14/2023 Covid-19 Vaccine (3 - 2023-2 5 season) 2024 11/23/2020, 11/02/2020 Influenza Vaccine (#1) 2024 2, 04/25/2021 DTaP/Tdap/Td Vaccine (3 - Td or Tdap) 04/25/2031 04/25/2021, 08/01/2010, 04/03/2000 Pneumococcal vaccine <65 Aged Out No longer eligible based on patient's age to complete this topic Insurance [facility] Care Teams Print Shop Stenographer Relationship Specialty Start Date End Date Carmelo Verduzco MD [address] [facility] [address] [address] [place] [address] PCP - General Family Practice 03/22/22
--- OUTSIDE RECORDS SUMMARY | 2024-11-19 09:12 | XMS_ITS | Encounter Summary ---
Author Organization [employer] Address [address] [place] [address] Care Team Providers Care Committee Member Name Role Phone Arlen Golden MD, Polo Felton Primary Care Provider Encounter Details Date Type Department Care Team (Late st Contact Info) Description 05/14/2008 Outpatient Historical [facility] Gabriel Jones MD NO ADDRESS ON FILE Social History Tobacco Use Types Packs/Day Years Used Date Smoking Tobacco: Never Assessed Comments Unknown Sex and Gender Information Value Date Recorded Sex Assigned at Not on file Legal Sex Female 5:37 AM ROW BOSS HOEING Gender Identity Not on file Sexual Orientation Not on file documented as of this encounter Plan of Treatment Not on file documented as of this encounter Procedures Procedure Name Priority Date/Time Associated Diagnosis Comments US OB LTD 1 OR MORE FETUSES Timed Study 06/06/2008 9:10 AM ROW BOSS HOEING documented in this encounter Results * US OB LTD 1 OR MORE FETUSES (06/06/2008 9:10 AM ROW BOSS HOEING) Anatomical Region Laterality Modality Pelvis Other Narrative 06/06/2008 9:10 AM ROW BOSS HOEING Results in [employer] Procedure Note 02/01/2009 Results in [employer] Gabriel Jones MD US ORDERABLES Final Result documented in this encounter Visit Diagnoses Not on filedocumented in this encounter Care Teams Committee Member Relationship Specialty Start Date End Date Polo Mckinley Jr., MD PCP - General Family Practice 03/29/14 documented as of this encounter
--- OUTSIDE RECORDS SUMMARY | 2024-11-19 09:12 | XMS_ITS | Continuity of Care Document ---
Author Organization [facility] Address [address] [place] [address] Phone Care Team Providers Care Hydraulic Rockbreaker Operator Name Role Phone Lisseth PT, DPT, Lili [...] Diagnoses Date Provider Providers Copied on Encounter [facility], [facility] [address], [place], [place], [id number], [place] tel:[phone] [place] No Information Henrichs Lili. . Referring Provider: [address], [place], [address]. tel:[phone], [id number], tel:[phone] [place] No Information Henrichs Lili. . Referring Provider: [address], [place], [address]. tel:[phone], [id number], tel:[phone] [place] No Information Henrichs Lili. . Referring Provider: [address], [place], [address]. tel:[phone], [id number], tel:[phone] [place] No Information Amilcar Joanna. [address] [place] [address], [address], [place], [facility][note 2], . tel:[phone] Referring Provider: [address], [place], [address]. tel:[phone], [id number], tel:[phone] [place] No Information Henrichs Lili. . Referring Provider: Andrew [address], [place], [address]. tel:[phone], [id number], tel:[phone] [place] No Information Henrichs Lili. . Referring Provider: Andrew [address], [place], [address]. tel:[phone] [facility], [address] [place] [address], [place], [place], [id number], tel:[phone] [place] No Information Lisseth Pearson. . Referring Provider: Calvin Duque, [address], [place], [address]. tel:[phone] Family History Family Member Type Diagnosis Age At Onset No Information Payers Payer name Insurance type Covered republican ID Authoriza tion(s) [facility] CI [id number] Social History Type Description Quantity Date Captured [...]
--- OUTSIDE RECORDS SUMMARY | 2024-11-19 09:12 | XMS_ITS | Encounter Summary ---
Author Organization [employer] Address [address] [place] [address] Care Team Providers Care Shingle Sawyer Name Role Phone Arlen Golden MD, Polo Felton Primary Care Provider Encounter Details Date Type Department Care Team (Late st Contact Info) Description 08/02/2008 Outpatient Historical [facility] Marciano Grissom MD [address] [place] [phone] Normal Delivery Social History Tobacco Use Types Packs/Day Years Used Date Smoking Tobacco: Never Assessed Comments Unknown Sex and Gender Information Value Date Recorded Sex Assigned at Not on file Legal Sex Female 5:37 AM DELIVERY HELPER Gender Identity Not on file Sexual Orientation Not on file documented as of this encounter Plan of Treatment Not on file documented as of this encounter Visit Diagnoses Diagnosis Normal delivery documented in this encounter Care Teams Shingle Sawyer Relationship Specialty Start Date End Date Polo Mckinley Jr., MD PCP - General Family Practice 03/29/14 documented as of this encounter
--- OUTSIDE RECORDS SUMMARY | 2024-11-19 09:12 | XMS_ITS | Encounter Summary ---
Author Organization [employer] Address [address] [place] [address] Care Team Providers Care Parachute Cushion Installer Name Role Phone Arlen Golden MD, Polo Felton Primary Care Provider Encounter Details Date Type Department Care Team (Late st Contact Info) Description 08/18/2008 Outpatient Historical [facility] Gabriel Jones MD NO ADDRESS ON FILE Social History Tobacco Use Types Packs/Day Years Used Date Smoking Tobacco: Never Assessed Comments Unknown Sex and Gender Information Value Date Recorded Sex Assigned at Not on file Legal Sex Female 5:37 AM CHROME POLISHER Gender Identity Not on file Sexual Orientation Not on file documented as of this encounter Plan of Treatment Not on file documented as of this encounter Procedures Procedure Name Priority Date/Time Associated Diagnosis Comments US OB LTD 1 OR MORE FETUSES Timed Study 08/28/2008 2:14 PM CHROME POLISHER documented in this encounter Results * US OB LTD 1 OR MORE FETUSES (08/28/2008 2:14 PM CHROME POLISHER) Anatomical Region Laterality Modality Pelvis Other Narrative 08/28/2008 2:14 PM CHROME POLISHER Results in [employer] Procedure Note 02/01/2009 Results in [facility] Gabriel Jones MD US ORDERABLES Final Result documented in this encounter Visit Diagnoses Not on filedocumented in this encounter Care Teams Parachute Cushion Installer Relationship Specialty Start Date End Date Polo Mckinley Jr., MD PCP - General Family Practice 03/29/14 documented as of this encounter
--- OUTSIDE RECORDS SUMMARY | 2024-11-19 09:12 | XMS_ITS | Encounter Summary ---
Author Organization [facility] Address [address] [place] [address] Care Team Providers Care Topper Packer Name Role Phone Carmelo Verduzco MD Primary Care Provider Encounter Details Date Type Department Care Team (Late st Contact Info) Description 12/15/2023 Light Up [employer] Message Enc [facility] [place] [address] [facility], [address] [place] [phone] Carmelo Verduzco MD [address] [facility] [address] [place] [address] [phone] Weight Loss Social History Tobacco Use Types Packs/Day Years Used Date Smoking Tobacco: Never Smokeless Tobacco: Never Alcohol Use Standard Drinks/Week Comments No 0 (1 standard drink = 0.6 oz pur e alcohol) PHQ-2 Answer Date Recorded Patient Health Questionnaire-2 Score 2 08/26/2023 Comments No Sex and Gender Information Value Date Recorded Sex Assigned at Female 09/19/2024 1:27 PM FLIGHT RESERVATIONS MANAGER Legal Sex Female 5:32 PM CDT Gender Identity Female 09/19/2024 1:27 PM FLIGHT RESERVATIONS MANAGER Sexual Orientation Not on file documented as of this encounter Plan of Treatment Not on file documented as of this encounter Visit Diagnoses Not on filedocumented in this encounter Additional Health Concerns Assessment Noted Time PHQ-9 Depression Total Score: 0 10/18/19 22 8:13 AM CDT documented as of this encounter Care Teams Topper Packer Relationship Specialty Start Date End Date Carmelo Verduzco MD [address] [facility] [address] [place] [address] PCP - General FAMILY PRACTICE 11/11/17 documented as of this encounter
== END 2024-11-19 09:09 | disposition home or self-care (01) ==
LOC: ANHLAB 09:10
PROVIDERS: PCP Family Medicine; Visit Provider Urology
DX: N39.3 Stress incontinence (female) (male) (principal)
CPT/HCPCS: 87086

== ENCOUNTER 2024-11-25 00:40 | Day surgery (SDC) | payer OTHER, SELFPAY ==
--- NOTE | 2024-11-15 14:52 | SUR.PREOP ---
Report to the Outpatient Waiting Room, entrance under the green pavilion located off [facility], at time ____06___ on date ____11/25/24___. Planned Procedure Time: ____729____.? Time changes happen often and if your time is changed the preop area will call you the afternoon before. - You and your visitor will be asked to self-screen and do not enter if you have any COVID symptoms. Please call surgeon if you need to reschedule. - A mask is optional within the hospital at this time. Patients may have clear liquids (water, carbonated beverages, clear teas, apple juice) until 3 hours prior to surgery with a maximum of 20 ounces. - NO CLEAR LIQUIDS AFTER 0430 - No food from midnight until time of surgery and no smoking, or chewing tobacco (or any form of nicotine). No chewing gum, candy or mints. - Infants may have breast milk until 4 hours before surgery, formula 6 hours prior to surgery. - Children will be allowed to drink immediately following surgery.? If applicable, please bring a bottle or sippy cup to assist with drinking. Juice, water, soda, and popsicles are readily available.? For infants on formula, please bring formula the day of surgery.? Pacifiers are allowed. Take only the following medications with a SIP of water on the morning of surgery: ESCITALOPRAM DO NOT STOP ANY OF YOUR OTHER PRESCRIPTION MEDICATIONS PRIOR TO SURGERY EXCEPT THE FOLLOWING Hold all vitamins and supplements for 3 days per anesthesiologist. Medications to discontinue per physician DICLOFENAC- ASK DR PENDLETON IN REGARD TO STOPPING OR CONTINUING THIS MEDICATION Date to take last dose Please no make-up, nail upper sorbian, hairspray, perfume, deodorant, or body powder the day of surgery.? No jewelry (including any body piercings) or valuables the day of surgery, leave them at home.? Please take a shower or bath the night before, or the morning of, surgery with an antibacterial soap.? Wear comfortable, loose fitting clothing.? Children are encouraged to wear pajamas. - Jewelry must be removed prior to entering the operating room.? Rings and piercings that are not removed may be cut off. - The hospital will not accept responsibility for valuables.? - Please leave all valuables, including medications, at home the day of surgery. If you are going home after surgery, a licensed funeral driver must drive you home.? - NO public transportation without another adult if you receive anesthesia. - We recommend that an adult stay with you for 24 hours following discharge. - We also recommend that you do not drive, make important decision, drink alcoholic beverages, or take any drugs that were not prescribed by your health care provider for at least 24 hours after your discharge time. For Pediatric surgeries, we recommend two adults accompany the child home. Follow any additional instructions given to you from your surgeon. Telephone instructions given to AVA PHILLIPS and asked if any additional questions and then verbalized understanding. Patient advised to call surgeon office or pre surgery nurse liaison [phone] if any additional questions.
[2024-11-15 15:03] VITALS: BMI 39.3
--- NOTE | 2024-11-21 04:48 | PM.IMHP ---
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 This was done at the time of her hysterectomy. There has also a possibility of mesh exposure from her previous sling that she would like evaluated in excised if present Review of Systems Review of Systems: All systems reviewed & are unremarkable except as noted in HPI and below PMFSH Surgical History Surgical History History of back surgery History of carpal tunnel surgery H/O: hysterectomy History of delivery Family History Family History Father Hypertension Heart disease Skin cancer Depression Mother Depression Hypertension Breast cancer Sibling Hypertension Skin cancer Grandparent Skin cancer Hypertension Heart disease Thyroid disorder Social History Social History Smoking status: Never smoker Alcohol intake: never Substance use: never Substance use type: does not use Do You Feel Safe in your Home?: Yes Lack of Transportation: No Lack of Food: Never True Current Housing: I Have Housing Concerned About Future Housing: No Difficulty Paying Gas/Electric Bills: No Difficulty Paying for Meds: No Currently Unemployed: No Education: High School Diploma/GED Difficulty w/ Childcare or Family Care: No Living arrangements: with family Spiritual care concerns: No Meds Home Medications and Allergies Home Medications ?Medication ?Instructions ?Recorded ?Confirmed ?Type escitalopram oxalate 20 mg tablet 20 mg PO DAILY 12/15/23 11/15/24 History fenofibrate 160 mg tablet 160 mg PO DAILY 12/15/23 11/15/24 History diclofenac sodium 75 mg 75 mg PO BID 11/15/24 11/15/24 History tablet,delayed release Allergies Allergy/AdvReac Type Severity Reaction Status Date / Time aloe Allergy Mild Rash Verified 11/15/24 14:39 meperidine Allergy Unknown Rash Verified 11/15/24 14:39 Exam Narrative: no acute distress alert oriented x3 normal breathing Assessment and Plan Assessment and plan (1) Exposure of vaginal mesh through vaginal wall: Code(s): T83.721A - Exposure of implanted vaginal mesh into vagina, initial encounter Status: Acute (2) Intrinsic sphincter deficiency (ISD): Code(s): N36.42 - Intrinsic sphincter deficiency (ISD) Status: Acute Plan plan for cystoscopy with injection of bulking agent. If mesh exposure encountered vaginally we will excise understands risks of bleeding, infection, lack of efficacy, urinary retention, need for catheterization, need for repeat procedures, recurrent exposure of vaginal mesh, inability to remove vaginal mesh. Agrees to proceed
--- OUTSIDE RECORDS SUMMARY | 2024-11-25 00:44 | XMS_ITS | Data Portability ---
Author Organization [facility] [employer] , [facility] Address [address] [place] [address] Assessment No assessment recorded. Plan of Treatment Reminders Order Date Submit Date Provider Last Modified By Organization Details Last Modified Time Details Appointments None recorded. Lab None recorded. Referral None recorded. Procedures None recorded. Surgeries None recorded. Imaging None recorded. Medication Orders Estrace 0.01% (0.1 mg/gram) vaginal cream 023 023 [facility] [address], [address], 3 10:07:56 Lysteda 650 mg tablet 023 023 marko [facility] [address], [address], 3 12:55:01 ferrous sulfate 325 mg (65 mg iron) tablet 023 023 [facility] [address], [address], 3 16:38:51 Patient TargetsNo targets recorded. Patient InstructionsNo instructions recorded. Reason for Referral None Reported. Results Created Date Observation Date Name Description Value Unit Range Abnormal Flag Note LastModifiedBy Organization Detail LastModifiedTime 04/09/2004/09/2023 HGB AND HCT hemoglobin 12.5 g/dL 12.0-1 6.0 Not Available [facility] (Lab) [address] [facility], [place], [address], 04/09/2023 13:50:21 04/09/2004/09/2023 HGB AND HCT hematocrit 39.1 % 38.0-4 8.0 Not Available [facility] (Lab) [address] [facility], [place], [address], 04/09/2023 13:50:21 04/09/2004/14/2023 BC SURGI MEJIA PATH[facility]Y [facility] [address] [facility] [place] [address] Phone : [phone] Fax: Depar tment of Patho logy Patho logy Repor t SURGI MEJIA FINAL REPOR T Patie nt Name: CHRISTIANNE BUITRAGO, BERTRAM DICKINSON [facility] cessi on#: [id number] : 1974 (Age: 47) Locat ion: SE[facility] IF Gende r: F Colle cted Date: 2022 [facility] Rec #: [id number] Date Recei lola: 2022 Date Repor [...] 0.2 cm up to 0.6 cm in [facility]. The cervi x measu res 3.5 [...] The remai renetta nodul e is white -gorodn, whorl ed and ill-d efine d, measu [...] tte B2. :duc reeder Fee Code( s): 68555 Not Available [facility] (Lab) [place], [address], 04/14/2023 15:20:33 Result Notes None recorded. Problems Name Problem SNOMED Code Status Onset Date Resolution Date Notes Provider Name and Address Organization Details Recorded Time Mixed urinary incontin ence 083772381 Active 2017 Mixed incontin ence; Progress : [...] : YES ProblemS tatus: Current Not Available [facility] 19:23:08 Dysuria 70839737 Completed 201703/27/2018 Dysuria; Progress : Stable Added By: Jordyn Mai Add to Current Problems : NO ProblemS tatus: Resolve Painful micturit ion, unspecif ied; Progress : Stable Added By: Jordyn Mai Add to Current Problems : NO ProblemS tatus: Resolve Not Available [facility] 19:23:08 Problem Notes None recorded. Procedures Surgical History Date Name Laterality Status Provider Name and Address Organization Details Recorded Time 023 laparoscopic-assi sted vaginal hysterectomy completed Maddison Betancourt MD [address] [place] [address], [phone], [facility] 04/10/2023 18:50:03 023 insertion of transobturator tape for female urinary incontinence completed Maddison Betancourt MD [address] [place] [address], [phone], [facility] 04/10/2023 18:50:49 022 Endometrial Biopsy completed Maddison Betancourt MD [address] [place] [address], [phone], [facility] 04/25/2022 22:43:11 022 Most Recent Mammogram completed Fabiana Taylor [facility] 03/25/2022 13:10:53 section completed Britany ziegler [facility] 03/24/2022 21:59:48 procedure on back completed Lili Gandara [facility] 03/10/2023 15:28:46 Imaging Results None recorded. Procedure Notes None recorded. Medical Equipment None Reported. Allergies Allergen ID Allergen Name Allergen Category Reaction Reaction Severity Criticality Documentation Date Start Date Code Code System Note Provider Name and Address Organization Details Recorded Time 523436 aloe extract food,medi cation Not available Not available Not available 05/17/20212017 72350 RxNorm Sever ity: Moder ate; Not Available [facility] 01:16:46 023263 Lovenox medicatio n Not available Not available Not available 05/17/20212017 38170 6 RxNorm Sever ity: Moder ate; Not Available [facility] 01:16:46 563244 heparin sodium, porcine medicatio n Not available Not available Not available 05/17/20212017 42963 9 RxNorm Sever ity: Moder ate; Not Available [facility] 01:16:46 Medications Name Sig Start Date Stop Date [...] completed Bactrim DS 160mg/80 0mg Tablet RxNorm: 745397 Allow Substitu tion: True Refill Denied: No [...] in Chloride 15mg Tablets, Extended Release RxNorm: [id number] Allow Substitu tion: True Refill Denied: No [...] Myrbetri q 50mg Tablets, Extended Release RxNorm: [id number] Allow Substitu tion: True Refill Denied: No Refill DateOccu rred: 11/06/19 18 Not Available Not Available Not Available Vitals Date Recorded Body height Body mass index (BMI) Body weight Systolic blood pressure Diastolic blood pressure Provider Name and Address Organization Details Last Updated DateTime 2022 160.02 cm 38.6 kg/m2 68952.42 g 116 mm[Hg] 84 mm[Hg] Fabiana Taylor [facility] 2 10:33:55 Date Recorded Body height Body mass index (BMI) Body weight Systolic blood pressure Diastolic blood pressure Provider Name and Address Organization Details Last Updated DateTime 09/09/2022 160.02 cm 38.3 kg/m2 92082.39 g 118 mm[Hg] 84 mm[Hg] Fabiana Taylor [facility] 3 16:20:11 Date Recorded Body height Body mass index (BMI) Body weight Systolic blood pressure Diastolic blood pressure Provider Name and Address Organization Details Last Updated DateTime 03/10/2023 160.02 cm 38.4 kg/m2 77465.5 4 g 130 mm[Hg] 80 mm[Hg] Lili Gandara [facility] 3 15:30:37 Date Recorded Body height Provider Name an d Address Organization Details Last Updated DateTime 04/18/2023 160.02 cm Justyna Buckley [facility] 04/18/2023 12:28:00 Date Recorded Body mass index (BMI) Body weight Body temperature Systolic blood pressure Diastolic blood pressure Provider Name and Address Organization Details Last Updated DateTime 3 38.2 kg/m2 03634.2 3 g 98 [degF] 120 mm[Hg] 82 mm[Hg] Joi Squires [facility] 3 12:54:25 Date Recorded Body height Body mass index (BMI) Body weight Systolic blood pressure Diastolic blood pressure Provider Name and Address Organization Details Last Updated DateTime 06/23/2023 160.02 cm 39.3 kg/m2 311918. 51 g 110 mm[Hg] 70 mm[Hg] Lili Gandara [facility] [employer] 3 09:53:39 Social History Question Answer Notes LastModified by Organizat ion Details LastModified Time Tobacco Smoking Status Never Smoker Chelsey soni, [facility] [employer] 04/08/2022 14:54:21 What Is Your Level Of [...] Colon Cancer N Cytomegalovirus N Hyperthyroidism N MRSA N Blood Transfusion N Herpes (HSV) N Breast Cancer N Lung Cancer N Depression N Hypothyroidism N Incontinence N Panic Attacks N Neurological Disorder N Deep Vein Thrombosis N Anxiety Disorder N Autoimmune disease N Arthritis N Shingles N Tuberculosis/Positive PPD N Polycystic Ovarian Syndrome N Cervical Cancer N Chlamydia N Hematuria N Stroke N Varicosities N Seasonal allergies N Crohn's Disease N Alzheimer's/Dementia N COPD/Emphysema N Endometriosis N HPV/Genital Warts N IBS (Irritable Bowel Syndrome) N History of Abnormal Pap N High Cholesterol N Liver Disease N Kidney Infection N Fibromyalgia N Ulcer N Kidney Disease N HIV N Gallbladder disease N Von Willebrand disease N Sickle Cell Disease/Trait N ADD/ADHD N Eating Disorder N Diabetes Mellitus (non-insulin dependent ) N Anemia N Ovarian Problems N Multiple Sclerosis N Gonorrhea N Frequent Urinary Tract infections N Osteopenia N Headaches/migraines N GERD (reflux) N Ovarian Cancer N Diabetes (insulin dependent) N Seizures/Epilepsy N Fibroids N Asthma N Heart Attack N Endometrial Cancer N Lupus N Rubella N Blood Clotting Disorder N [...] SNOMED-CT Code Diagnosis ICD10 Code Diagnosis Note [id number] Maddison Betancuort MD [facility] [address] [place] [address] 03/25/2022 12:29:23 03/27/2022 00:34:55 Menorrhagia 719879519 N92.0 Recent episode of severe menorrhagi a [...] bx History of recurrent miscarriage - not 542625705 N96 hx of MTHFR Family marjorie nning surveillance 161172887 Z30.09 pt is not on any control at this time, uses condoms. She is certain at this point in her life she does not want any further childbeari ng and wants to be done with fear of . Briefly discussed Mirena IUD, may also consider surgical options after we complete her work up [id number] Maddison Betancourt MD [address] [address] 04/08/2022 14:00:10 04/28/2022 15:11:39 Excessive and frequent menstruation 451474792 N92.0 discussed and reviewed ultrasound findings. Endometria l bx done today, follow up results [id number] Maddison Betancourt MD [address] [address] 2022 10:02:14 06/02/2022 09:22:34 Menometrorrhagia 865943988 N92.1 most likely DUB. Had few months [...] if heavy bleeding recurs, would repeat provera [id number] Maddison Betancourt MD [address] [address] 09/09/2022 15:53:39 09/16/2022 15:06:13 Mixed urinary incontinence 667922890 N39.46 discussed her urinary incontinen ce. Advise referral to Dr Macdonald to manage this problem [id number] Maddison Betancourt MD [address] [address] 03/10/2023 15:16:12 03/10/2023 18:30:10 Excessive and frequent menstruation 947337278 N92.0 Severe prolonged menstrual bleeding which has [...] add LAVH/BS to her surgery this day [id number] Maddison Betancourt MD [facility] [address] [place] [address] 04/18/2023 12:09:10 04/20/2023 10:52:39 Postoperative visit 032519958 Z09 s/p LAVH/BS and left ov cystectomy , TOT sling by Dr Macdonald, 2 wk post op checkDiscu ssed pathology resultsDis cussed continued precaution s/limitati onsdiscuss ed wound careGiven note 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 She knows she cannot take ocp due [...] a 14 yr old. Maddison Betancourt MD [address] [place] [address], [phone], [facility] 2022 11:09:37 09/09/2022 text/html Maddison is farzaneh ng seen for a f/u visit for irregular [...] Patient is very discouraged. Maddison Betancourt MD [address] [place] [address], [place], [address], [facility] 03/10/2023 04:43:04 03/10/2023 text/html Maddison is a [age] yr old who presents for a visit concerning abnormal uterine bleeding.She has been treated with Provera.She underwent pelvic ultrasound last Mar with the finding of a heterogenous uterus [...] Carmelo Verduzco this morning., Maddison Betancourt MD [address] [place] [address], [phone], [facility] 03/10/2023 18:30:00 04/18/2023 text/html Maddison return [...] just a small pad Maddison Betancourt MD [address] [place] [address], [phone], [facility] 04/18/2023 13:14:22 06/23/2023 text/html Maddison return s for a final post op check from her LAVH/BS/LEFT OV CYSTECTOMY done 04/09/23. She also had a TOT sling done by Dr Macdonald the same day.She experienced no post op complications.She reports that she is having some pinkish disch with intercourse and her stated that he can feel something Maddison Betancourt MD [address] [place] [address], [phone], [facility] 06/23/2023 10:08:31 OBGyn Episode Ob Episode Information Episode Created Date Number of Fetuses Patient Bloodtype Patient rh Status Prepregnancy Weight lbs Domestic Partner Domestic Partner Phone Father Name Build And Deployment Engineer Status 09/09/19 23 1 CLOSED Fetus Data First Name Last Name Admitted to NICU Weight (g) Sex Living Outcome Pediatric Complications Fetus ID Race Codes Race Delivery Type 3656.85 8704 F Full Term [id number] Primary Ton Calculation Initial Ton Date Initial [...]
--- OUTSIDE RECORDS SUMMARY | 2024-11-25 00:44 | XMS_ITS | Encounter Summary ---
Author Organization [facility] Address [address] [place] [address] Care Team Providers Care Comber Setter Name Role Phone Carmelo Verduzco MD Primary Care Provider [phone] Encounter Details Date Type Department Care Team (Late st Contact Info) Description 07/29/2023 Newgen Software Technologiest Message Enc [facility] Medical Group Family Medicine - [place] [address] [facility], [address] [place] [phone] Carmelo Verduzco MD [address] [facility] [address] [place] [address] [phone] Hand Specialist Social History Tobacco Use Types Packs/Day Years Used Date Smoking Tobacco: Never Smokeless Tobacco: Never Alcohol Use Standard Drinks/Week Comments No 0 (1 standard drink = 0.6 oz pur e alcohol) PHQ-2 Answer Date Recorded Patient Health Questionnaire-2 Score 0 08/05/2022 Comments No Sex and Gender Information Value Date Recorded Sex Assigned at Female 09/19/2024 1:27 PM GEOLOGIC TECHNICIAN Legal Sex Female 5:32 PM CDT Gender Identity Female 09/19/2024 1:27 PM GEOLOGIC TECHNICIAN Sexual Orientation Not on file documented as of this encounter Plan of Treatment Not on file documented as of this encounter Visit Diagnoses Not on filedocumented in this encounter Additional Health Concerns Assessment Noted Time PHQ-9 Depression Total Score: 0 10/18/19 22 8:13 AM CDT documented as of this encounter Care Teams Comber Setter Relationship Specialty Start Date End Date Carmelo Verduzco MD [address] [facility] [address] [place] [address] PCP - General FAMILY PRACTICE 11/11/17 documented as of this encounter
--- OUTSIDE RECORDS SUMMARY | 2024-11-25 00:44 | XMS_ITS | Encounter Summary ---
Author Organization [facility] Address [address] [place] [address] Care Team Providers Care Compliance Quality Performance Analyst Name Role Phone Carmelo Verduzco MD Primary Care Provider [phone] Encounter Details Date Type Department Care Team (Late st Contact Info) Description 03/02/2022 Kiit Message Enc [facility] Medical Group Family Medicine - [place] [address] [facility], [address] [place] [phone] Carmelo Verduzco MD [address] [facility] [address] [place] [address] [phone] Shirin menopause Social History Tobacco Use Types [...] Sex Assigned at Female 09/19/2024 1:27 PM HEALTH DIRECTOR Legal Sex Female 5:32 PM CDT Gender Identity Female 09/19/2024 1:27 PM HEALTH DIRECTOR Sexual Orientation Not on file documented as of this encounter Plan of Treatment Not on file documented as of this encounter Visit Diagnoses Not on filedocumented in this encounter Additional Health Concerns Assessment Noted Time PHQ-9 Depression Total Score: 0 10/18/19 22 8:13 AM CDT documented as of this encounter Care Teams Compliance Quality Performance Analyst Relationship Specialty Start Date End Date Carmelo Verduzco MD [address] [address] PCP - General FAMILY PRACTICE 11/11/17 documented as of this encounter
--- OUTSIDE RECORDS SUMMARY | 2024-11-25 00:44 | XMS_ITS | Encounter Summary ---
Author Organization [facility] Address [address] [place] [address] Care Team Providers Care Answering Service Operator Name Role Phone Carmelo Verduzco MD Primary Care Provider [phone] Encounter Details Date Type Department Care Team (Late st Contact Info) Description 12/29/2022 Car in the Cloudt Message Enc [facility] Medical Group Family Medicine - [place] [address] [facility], [address] [place] [phone] Carmelo Verudzco MD [address] [facility] [address] [place] [address] [phone] Metformin and Oxybutinin Social History Tobacco Use Types Packs/Day Years Used Date Smoking Tobacco: Never Smokeless Tobacco: Never Alcohol Use Standard Drinks/Week Comments No 0 (1 standard drink = 0.6 oz pur e alcohol) PHQ-2 Answer Date Recorded Patient Health Questionnaire-2 Score 0 08/05/2022 Comments No Sex and Gender Information Value Date Recorded Sex Assigned at Female 09/19/2024 1:27 PM DESIGN ASSEMBLER Legal Sex Female 5:32 PM CDT Gender Identity Female 09/19/2024 1:27 PM DESIGN ASSEMBLER Sexual Orientation Not on file documented as of this encounter Plan of Treatment Not on file documented as of this encounter Visit Diagnoses Not on filedocumented in this encounter Additional Health Concerns Assessment Noted Time PHQ-9 Depression Total Score: 0 10/18/19 22 8:13 AM CDT documented as of this encounter Care Teams Answering Service Operator Relationship Specialty Start Date End Date Carmelo Verduzco MD [address] [facility] [address] [place] [address] PCP - General FAMILY PRACTICE 11/11/17 documented as of this encounter
--- OUTSIDE RECORDS SUMMARY | 2024-11-25 00:44 | XMS_ITS | Encounter Summary ---
Author Organization [facility] Address [address] [place] [address] Care Team Providers Care Information Systems Project Manager Name Role Phone Carmelo Verduzco MD Primary Care Provider [phone] Encounter Details Date Type Department Care Team (Late st Contact Info) Description 03/16/2023 Derbywire Message Enc [facility] Medical Group Family Medicine - [place] [address] [facility], [address] [place] [address] [facility] Provider pap results Social History Tobacco Use Types Packs/Day Years Used Date Smoking Tobacco: Never Smokeless Tobacco: Never Alcohol Use Standard Drinks/Week Comments No 0 (1 standard drink = 0.6 oz pur e alcohol) PHQ-2 Answer Date Recorded Patient Health Questionnaire-2 Score 0 08/05/2022 Comments No Sex and Gender Information Value Date Recorded Sex Assigned at Female 09/19/2024 1:27 PM POULTRY BONER Legal Sex Female 5:32 PM CDT Gender Identity Female 09/19/2024 1:27 PM POULTRY BONER Sexual Orientation Not on file documented as of this encounter Plan of Treatment Not on file documented as of this encounter Visit Diagnoses Not on filedocumented in this encounter Additional Health Concerns Assessment Noted Time PHQ-9 Depression Total Score: 0 10/18/19 22 8:13 AM CDT documented as of this encounter Care Teams Information Systems Project Manager Relationship Specialty Start Date End Date Carmelo Verduzco MD [address] [facility] [address] [place] [address] PCP - General FAMILY PRACTICE 11/11/17 documented as of this encounter
--- OUTSIDE RECORDS SUMMARY | 2024-11-25 00:44 | XMS_ITS | Clinical Summary ---
Author Organization [facility] Address [address] [place] [address] Care Team Providers Care Agricultural Equipment Sales Engineer Name Role Phone Carmelo Verduzco MD Primary Care Provider [phone] Allergies Active Allergy Reactions Criticality Noted Date [...] on file Legal Sex Female 4:57 PM SENIOR GEOTECHNICAL ENGINEER Gender Identity Not on file Sexual Orientation [...] patient's age to complete this topic Insurance [facility] Care Teams Agricultural Equipment Sales Engineer Relationship Specialty Start Date End Date Carmelo Verduzco MD [address] [facility] [address] [place] [address] PCP - General Family Practice 03/22/22
--- OUTSIDE RECORDS SUMMARY | 2024-11-25 00:44 | XMS_ITS | Encounter Summary ---
Author Organization [facility] Address [address] [place] [address] Care Team Providers Care Lubricating Machine Tender Name Role Phone Carmelo Verduzco MD Primary Care Provider [phone] Reason for Visit * Reason Comments Lab (SCAN) Encounter Details Date Type Department Care Team (Latest Contact Info) Description 11/19/2024 Scan HEALTH INFO SRVCS Scanned, Doc Med Group Lab (SCAN) Social History Tobacco Use Types Packs/Day Years Used Date Smoking Tobacco: Never Passive Smoke Exposure: Past Smokeless Tobacco: Never Alcohol Use Standard Drinks/Week Comments No 0 (1 standard drink = 0.6 oz pur e alcohol) PHQ-2 Answer Date Recorded Patient Health Questionnaire-2 Score 0 09/19/2024 Comments No Sex and Gender Information Value Date Recorded Sex Assigned at Female 09/19/2024 1:27 PM TECHNICIAN SUPPORT ENGINEER Legal Sex Female 5:32 PM CDT Gender Identity Female 09/19/2024 1:27 PM TECHNICIAN SUPPORT ENGINEER Sexual Orientation Not on file documented as of this encounter Plan of Treatment Not on file documented as of this encounter Procedures Procedure Name Priority Date/Time Associated Diagnosis Comments OUTSIDE LAB (SCAN ORDER) 11/19/2024 documented in this encounter Results * OUTSIDE LAB (SCAN ORDER) (11/19/2024) 11/19/2024 us Doc Med Group Scanned SCANNING Final Resu lt documented in this encounter Visit Diagnoses Not on filedocumented in this encounter Additional Health Concerns Assessment Noted Time PHQ-9 Depression Total Score: 0 10/18/19 22 8:13 AM CDT documented as of this encounter Care Teams Lubricating Machine Tender Relationship Specialty Start Date End Date Carmelo Verduzco MD [address] [facility] [address] [place] [address] PCP - General FAMILY PRACTICE 11/11/17 documented as of this encounter
--- OUTSIDE RECORDS SUMMARY | 2024-11-25 00:44 | XMS_ITS | Encounter Summary ---
Author Organization [facility] Address [address] [place] [address] Care Team Providers Care Contracts Paralegal Name Role Phone Carmelo Verduzco MD Primary Care Provider [phone] Encounter Details Date Type Department Care Team (Late st Contact Info) Description 03/16/2023 Air Semiconductort Message Enc [facility] Medical Group Family Medicine - [place] [address] [facility], [address] [place] [phone] Carmelo Verduzco MD [address] [facility] [address] [place] [address] [phone] Test Results Social History Tobacco Use Types Packs/Day Years Used Date Smoking Tobacco: Never Smokeless Tobacco: Never Alcohol Use Standard Drinks/Week Comments No 0 (1 standard drink = 0.6 oz pur e alcohol) PHQ-2 Answer Date Recorded Patient Health Questionnaire-2 Score 0 08/05/2022 Comments No Sex and Gender Information Value Date Recorded Sex Assigned at Female 09/19/2024 1:27 PM ARMAMENT INSTALLER Legal Sex Female 5:32 PM CDT Gender Identity Female 09/19/2024 1:27 PM ARMAMENT INSTALLER Sexual Orientation Not on file documented as of this encounter Plan of Treatment Not on file documented as of this encounter Visit Diagnoses Not on filedocumented in this encounter Additional Health Concerns Assessment Noted Time PHQ-9 Depression Total Score: 0 10/18/19 22 8:13 AM CDT documented as of this encounter Care Teams Contracts Paralegal Relationship Specialty Start Date End Date Carmelo Verduzco MD [address] [facility] [address] [place] [address] PCP - General FAMILY PRACTICE 11/11/17 documented as of this encounter
--- OUTSIDE RECORDS SUMMARY | 2024-11-25 00:44 | XMS_ITS | Encounter Summary ---
Author Organization [facility] Address [address] [place] [address] Care Team Providers Care Portfolio Mgr Name Role Phone Carmelo Verduzco MD Primary Care Provider [phone] Encounter Details Date Type Department Care Team (Latest Contact Info) Description 11/21/2024 Scan HEALTH INFO SRVCS Scanned, Doc Med Group Social History Tobacco Use Types Packs/Day Years Used Date Smoking Tobacco: Never Passive Smoke Exposure: Past Smokeless Tobacco: Never Alcohol Use Standard Drinks/Week Comments No 0 (1 standard drink = 0.6 oz pur e alcohol) PHQ-2 Answer Date Recorded Patient Health Questionnaire-2 Score 0 09/19/2024 Comments No Sex and Gender Information Value Date Recorded Sex Assigned at Female 09/19/2024 1:27 PM STAFF REPORTER Legal Sex Female 5:32 PM CDT Gender Identity Female 09/19/2024 1:27 PM STAFF REPORTER Sexual Orientation Not on file documented as of this encounter Plan of Treatment Not on file documented as of this encounter Visit Diagnoses Not on filedocumented in this encounter Additional Health Concerns Assessment Noted Time PHQ-9 Depression Total Score: 0 10/18/19 22 8:13 AM CDT documented as of this encounter Care Teams Portfolio Mgr Relationship Specialty Start Date End Date Carmelo Verduzco MD [address] [facility] [address] [place] [address] PCP - General FAMILY PRACTICE 11/11/17 documented as of this encounter
--- OUTSIDE RECORDS SUMMARY | 2024-11-25 00:44 | XMS_ITS | Referral Summary ---
Author Organization [facility] Address [address] [place] [address] Care Team Providers Care Fixed Wing Aircraft Flight Engineer Name Role Phone Carmelo Verduzco MD Primary Care Provider [phone] Allergies Active Allergy Reactions Criticality Noted Date [...] on file Legal Sex Female 4:57 PM GIS SOFTWARE DEVELOPER Gender Identity Not on file Sexual Orientation [...] Plan of Treatment Not on file Insurance [facility]/PPO Address: [place] [address] [facility] H[facility]/PPO Address: [place] [id number] [facility]/PPO Address: [address] [place] [address] Care Teams Fixed Wing Aircraft Flight Engineer Relationship Specialty Start Date End Date Carmelo Verduzco MD [address] [address] PCP - General Family Practice 03/22/22
--- OUTSIDE RECORDS SUMMARY | 2024-11-25 00:45 | XMS_ITS | Encounter Summary ---
Author Organization [facility] Address [address] [place] [address] Care Team Providers Care Premix Concrete Batcher Name Role Phone Carmelo Verduzco MD Primary Care Provider [phone] Encounter Details Date Type Department Care Team (Late st Contact Info) Description 12/15/2023 WinFreeCandyt Message Enc [facility] Medical Group Family Medicine - [place] [address] [facility], [address] [place] [phone] Carmelo Verduzco MD [address] [facility] [address] [place] [address] [phone] Weight Loss Social History Tobacco Use Types Packs/Day Years Used Date Smoking Tobacco: Never Smokeless Tobacco: Never Alcohol Use Standard Drinks/Week Comments No 0 (1 standard drink = 0.6 oz pur e alcohol) PHQ-2 Answer Date Recorded Patient Health Questionnaire-2 Score 2 08/26/2023 Comments No Sex and Gender Information Value Date Recorded Sex Assigned at Female 09/19/2024 1:27 PM MILITARY TECHNICIAN Legal Sex Female 5:32 PM CDT Gender Identity Female 09/19/2024 1:27 PM MILITARY TECHNICIAN Sexual Orientation Not on file documented as of this encounter Plan of Treatment Not on file documented as of this encounter Visit Diagnoses Not on filedocumented in this encounter Additional Health Concerns Assessment Noted Time PHQ-9 Depression Total Score: 0 10/18/19 22 8:13 AM CDT documented as of this encounter Care Teams Premix Concrete Batcher Relationship Specialty Start Date End Date Carmelo Verduzco MD [address] [facility] [address] [place] [address] PCP - General FAMILY PRACTICE 11/11/17 documented as of this encounter
--- OUTSIDE RECORDS SUMMARY | 2024-11-25 00:45 | XMS_ITS | Encounter Summary ---
Author Organization [employer] Address [address] [place] [address] Care Team Providers Care Team Lead Name Role Phone Arlen Golden MD, Polo Felton Primary Care Provider Encounter Details Date Type Department Care Team (Late st Contact Info) Description 10/17/2008 Outpatient Historical HIS PATIENT IN A BED Marciano Grsisom MD [address] [place] [phone] Genaro Walker MD NO ADDRESS ON FILE Social History Tobacco Use Types Packs/Day Years Used Date Smoking Tobacco: Never Assessed Comments Unknown Sex and Gender Information Value Date Recorded Sex Assigned at Not on file Legal Sex Female 5:37 AM CHILD DEVELOPMENT DIRECTOR Gender Identity Not on file Sexual [...] 8:39 PM CDT) BLOOD UA Negative Negative [facility] COLOR UA Pale Yellow [facility] NITRITE UA Negative Negative [facility] UROBILINOGEN UA <1 <=1 mg/dL [facility] PH UA 6.5 5.0 - 8.0 [facility] KETONES UA 1+(A) Negative [facility] CLARITY UA Clear Clear [facility] BILIRUBIN UA Negative Negative [facility] PROTEIN UA Negative Negative [facility] LEUKOCYTE ESTERASE UA Negative Negative [facility] SPECIFIC GRAVITY UA 1.008 1.001 - 1.035 [facility] GLUCOSE UA Negative Negative [facility] 10/17/2008 8:39 PM CDT 10/17/2008 8:43 PM CDT Marciano Grissom MD URINE ORDERABLES Final Result Performing Organization Address [facility] Phone Number INTERFACE SYSTEM Refer to clinic/hospital department [facility] CLIA# [id number] [address] [place] [address] * URINALYSIS WITH REFLEX CULTURE (10/17/2008 8:39 PM CDT) URINE CULTURE ORDER Not indicated [facility] Comment: Criteria for a reflex culture [...] URINE ORDERABLES Final Result Performing Organization Address [facility] Phone Number INTERFACE SYSTEM Refer to clinic/hospital department [facility] CLIA# [id number] [address] [place] [address] documented in this encounter Visit Diagnoses Not on filedocumented in this encounter Care Teams Team Lead Relationship Specialty Start Date End Date Arlen Golden, Polo Felton MD PCP - General Family Practice 03/29/14 documented as of this encounter
--- OUTSIDE RECORDS SUMMARY | 2024-11-25 00:45 | XMS_ITS | Encounter Summary ---
Author Organization [facility] Address [address] [place] [address] Care Team Providers Care Erp Consultant Name Role Phone Arlen Golden MD, Polo Felton Primary Care Provider Encounter Details Date Type Department Care Team (Late st Contact Info) Description 06/15/2008 Outpatient Historical [facility] Gabriel Jones MD NO ADDRESS ON FILE Social History Tobacco Use Types Packs/Day Years Used Date Smoking Tobacco: Never Assessed Comments Unknown Sex and Gender Information Value Date Recorded Sex Assigned at Not on file Legal Sex Female 5:37 AM MACHINE TOOL DRESSER Gender Identity Not on file Sexual Orientation Not on file documented as of this encounter Plan of Treatment Not on file documented as of this encounter Procedures Procedure Name Priority Date/Time Associated Diagnosis Comments US OB LTD 1 OR MORE FETUSES Timed Study 07/04/2008 11:47 AM MACHINE TOOL DRESSER documented in this encounter Results * US OB LTD 1 OR MORE FETUSES (07/04/2008 11:47 AM MACHINE TOOL DRESSER) Anatomical Region Laterality Modality Pelvis Other Narrative 07/04/2008 11:47 AM MACHINE TOOL DRESSER Results in [employer] Procedure Note 02/01/2009 Results in [employer] Gabriel Jones MD US ORDERABLES Final Result documented in this encounter Visit Diagnoses Not on filedocumented in this encounter Care Teams Erp Consultant Relationship Specialty Start Date End Date Polo Mckinley Jr., MD PCP - General Family Practice 03/29/14 documented as of this encounter
--- OUTSIDE RECORDS SUMMARY | 2024-11-25 00:45 | XMS_ITS | Encounter Summary ---
Author Organization [employer] Address [address] [place] [address] Care Team Providers Care Candle Pourer Name Role Phone Arlen Golden MD, Ploo Felton Primary Care Provider Encounter Details Date Type Department Care Team (Late st Contact Info) Description 10/21/2008 Outpatient Historical [facility] Gabriel Jones MD NO ADDRESS ON FILE Social History Tobacco Use Types Packs/Day Years Used Date Smoking Tobacco: Never Assessed Comments Unknown Sex and Gender Information Value Date Recorded Sex Assigned at Not on file Legal Sex Female 5:37 AM INJECTION MOLDING MACHINE OPERATOR Gender Identity Not on file Sexual Orientation Not on file documented as of this encounter Plan of Treatment Not on file documented as of this encounter Visit Diagnoses Not on filedocumented in this encounter Care Teams Candle Pourer Relationship Specialty Start Date End Date Polo Mckinley Jr., MD PCP - General Family Practice 03/29/14 documented as of this encounter
--- OUTSIDE RECORDS SUMMARY | 2024-11-25 00:45 | XMS_ITS | Encounter Summary ---
Author Organization [facility] Address [address] [place] [address] Care Team Providers Care Rodeo Rider Name Role Phone Carmelo Verduzco MD Primary Care Provider [phone] Encounter Details Date Type Department Care Team (Late st Contact Info) Description 03/08/2024 ACKme Networkst Message Enc [facility] Medical Group Family Medicine - [place] [address] [facility], [address] [place] [address] [place] [address] [place] [address] meds Social History Tobacco Use Types Packs/Day Years Used Date Smoking Tobacco: Never Passive Smoke Exposure: Past Smokeless Tobacco: Never Alcohol Use Standard Drinks/Week Comments No 0 (1 standard drink = 0.6 oz pur e alcohol) PHQ-2 Answer Date Recorded Patient Health Questionnaire-2 Score 2 08/26/2023 Comments No Sex and Gender Information Value Date Recorded Sex Assigned at Female 09/19/2024 1:27 PM CHANGE OF ADDRESS CLERK Legal Sex Female 5:32 PM CDT Gender Identity Female 09/19/2024 1:27 PM CHANGE OF ADDRESS CLERK Sexual Orientation Not on file documented as [...] checkher options she will send us a Circle[employer] message on what she would like to [...] documented as of this encounter Care Teams Rodeo Rider Relationship Specialty Start Date End Date Carmelo Verduzco MD [address] [facility] [address] [place] [address] PCP - General FAMILY PRACTICE 11/11/17 documented as of this encounter
--- OUTSIDE RECORDS SUMMARY | 2024-11-25 00:45 | XMS_ITS | Encounter Summary ---
Author Organization [employer] Address [address] [place] [address] Care Team Providers Care Liability Claims Adjuster Name Role Phone Arlen Golden MD, Polo Felton Primary Care Provider Encounter Details Date Type Department Care Team (Late st Contact Info) Description 07/17/2008 Outpatient Historical [facility] Gabriel Jones MD NO ADDRESS ON FILE Social History Tobacco Use Types Packs/Day Years Used Date Smoking Tobacco: Never Assessed Comments Unknown Sex and Gender Information Value Date Recorded Sex Assigned at Not on file Legal Sex Female 5:37 AM SHAPING MACHINE TENDER Gender Identity Not on file Sexual Orientation Not on file documented as of this encounter Plan of Treatment Not on file documented as of this encounter Procedures Procedure Name Priority Date/Time Associated Diagnosis Comments US OB LTD 1 OR MORE FETUSES Timed Study 08/01/2008 11:07 AM SHAPING MACHINE TENDER documented in this encounter Results * US OB LTD 1 OR MORE FETUSES (08/01/2008 11:07 AM SHAPING MACHINE TENDER) Anatomical Region Laterality Modality Pelvis Other Narrative 08/01/2008 11:07 AM SHAPING MACHINE TENDER Results in [employer] Procedure Note 02/01/2009 Results in [employer] Gabriel Jones MD US ORDERABLES Final Result documented in this encounter Visit Diagnoses Not on filedocumented in this encounter Care Teams Liability Claims Adjuster Relationship Specialty Start Date End Date Polo Mckinley Jr., MD PCP - General Family Practice 03/29/14 documented as of this encounter
--- OUTSIDE RECORDS SUMMARY | 2024-11-25 00:45 | XMS_ITS | Encounter Summary ---
Author Organization [facility] Address [address] [place] [address] Care Team Providers Care Craft Artist Name Role Phone Arlen Golden MD, Polo Felton Primary Care Provider Encounter Details Date Type Department Care Team (Late st Contact Info) Description 03/31/2008 Outpatient Historical HIS PATIENT IN A BED Marciano Grissom MD [address] [place] [phone] Linda Barrientos MD [address] [place] [phone] Social History Tobacco Use Types Packs/Day Years Used Date Smoking Tobacco: Never Assessed Comments Unknown Sex and Gender Information Value Date Recorded Sex Assigned at Not on file Legal Sex Female 5:37 AM INSURANCE ASSOCIATE Gender Identity Not on file Sexual Orientation [...] QUANT, BLOOD 36,980(H) 0 - 5 mIU/mL [facility] Comment: Result of 5 - 25 [...] dited INTERFACE SYSTEM Refer to clinic/hospital department [facility] CLIA# [id number] [address] [place] [address] documented in this encounter Visit Diagnoses Not on filedocumented in this encounter Care Teams Craft Artist Relationship Specialty Start Date End Date Polo Mckinley Jr., MD PCP - General Family Practice 03/29/14 documented as of this encounter
--- OUTSIDE RECORDS SUMMARY | 2024-11-25 00:45 | XMS_ITS | Encounter Summary ---
Author Organization [employer] Address [address] [place] [address] Care Team Providers Care Physician Practice Manager Name Role Phone Arlen Golden MD, Polo Felton Primary Care Provider Encounter Details Date Type Department Care Team (Late st Contact Info) Description 09/19/2008 Outpatient Historical [facility] Gabriel Jones MD NO ADDRESS ON FILE Social History Tobacco Use Types Packs/Day Years Used Date Smoking Tobacco: Never Assessed Comments Unknown Sex and Gender Information Value Date Recorded Sex Assigned at Not on file Legal Sex Female 5:37 AM TILER Gender Identity Not on file Sexual Orientation Not on file documented as of this encounter Plan of Treatment Not on file documented as of this encounter Procedures Procedure Name Priority Date/Time Associated Diagnosis Comments US OB LTD 1 OR MORE FETUSES Timed Study 09/26/2008 2:52 PM TILER documented in this encounter Results * US OB LTD 1 OR MORE FETUSES (09/26/2008 2:52 PM TILER) Anatomical Region Laterality Modality Pelvis Other Narrative 09/26/2008 2:52 PM TILER FINAL - Order Information Only Procedure Note Torin Veliz RN - 08/14/2015 FINAL - Order Information Only Gabriel Jones MD US ORDERABLES Final Result documented in this encounter Visit Diagnoses Not on filedocumented in this encounter Care Teams Physician Practice Manager Relationship Specialty Start Date End Date Polo Mckinley Jr., MD PCP - General Family Practice 03/29/14 documented as of this encounter
--- OUTSIDE RECORDS SUMMARY | 2024-11-25 00:45 | XMS_ITS | Clinical Summary ---
Author Organization [facility] Address [address] [place] [address] Care Team Providers Care Fire Fighter [employer] Name Role Phone Carmelo Walters MD Primary Care Provider [phone] Allergies Active Allergy Reactions Criticality Noted Date Comments Aloe Rash Low 09/28/2013 Enoxaparin Rash,Hives Medium 01/31/2018 Heparin Rash,Unknown,Hives Medium 09/21/2017 Lidocaine Hives Medium 06/07/2018 Medications escitalopram (LEXAPRO) 20 MG tabletIndications: Anxiety take 1 tablet by mouth every day 90 tablet 3 4 Active nitrofurantoin, macrocrystal-monoh ydrate, (MACROBID) 100 MG capsuleIndications :Recurrent UTI Take 1 capsule (100 mg total) by mouth daily as needed. 30 capsule 4 Active traMADol (ULTRAM) 50 MG tabletIndications: Acute Pain < 7 Day Supply Take 1 tablet (50 mg total) by mouth every 6 (six) hours as needed for Pain. Indications : Acute Pain < 7 Day Supply 20 tablet 4 Active guaiFENesin-codein e (GUAIFENESIN AC) 100-10 MG/5ML syrupIndications:C ough Take 5 mLs by mouth every 4 (four) hours as needed. Indications : Cough 118 mL 5 Active methylPREDNISolone , SALEEM, (MEDROL DOSEPAK) 4 MG tabletIndications: Allergic reaction 6 TABLETS ON DAY ONE, 5 TABLETS DAY TWO, 4 TABLETS DAY THREE, 3 TABLETS DAY FOUR, 2 TABLETS DAY FIVE, AND 1 TABLET DAY SIX 1 each 5 Active diclofenac EC (VOLTAREN) 75 MG tabletIndications: Primary osteoarthritis of both hands TAKE 1 TABLET BY MOUTH TWICE A DAY 180 tablet 5 Active fenofibrate 160 MG tabletIndications: Mixed hyperlipidemia TAKE 1 TABLET BY MOUTH EVERY DAY 90 tablet 3 5 Active fenofibrate 160 MG tabletIndications: Mixed hyperlipidemia take 1 tablet by mouth every day 90 tablet 3 4 11/21/19 25 Discontin ued(Reord er) Active Problems Problem Noted Date Diagnosed Date [...] Encounters Date Type Department Care Team Description 11/21/2024 Scan [facility] Scanned, [facility] 11/19/2024 Scan [facility] Scanned, [facility] Lab (SCAN) 10/21/2024 12:45 PM CDT Office Visit [facility] Occupational Therapy [address] [place] [address] Omero Cedillo MD Pratt, Robin M, OTR Finger pain 10/21/2024 Travel 10/11/2024 9:20 AM CDT Office Visit [facility] Orthopedic & Sports [facility] [address] [place] [address] Omero Cedillo MD Follow Up (Left hand pinky finger pain) 10/11/2024 Travel 10/10/2024 MyChart Message Enc [facility] [address], [address] [place] [phone] Carmelo Walters MD Allergic or Something 10/04/2024 MyChart Message Enc [facility] Orthopedic & Sports Medicine [facility] [address] [place] [address] Omero Cedillo MD Pain in left hand 10/03/2024 Telephone [facility] Orthopedic & Sports [facility] [address] [place] [address] Omero Cedillo MD Appointment Request 09/19/2024 1:00 PM CENTRALIZED TRAFFIC CONTROL OPERATOR Office Visit [facility] [address], [address] [place] [address] Carmelo Walters MD Flu Like Symptoms (Pt [...] Sex Assigned at Female 09/19/2024 1:27 PM CENTRALIZED TRAFFIC CONTROL OPERATOR Legal Sex Female 5:32 PM CDT Gender Identity Female 09/19/2024 1:27 PM CENTRALIZED TRAFFIC CONTROL OPERATOR Sexual Orientation Not on file Last Filed Vital Signs Vital Sign Reading Time Taken Comments Blood Pressure 136/78 10/11/2024 10:08 AM CDT Pulse 66 10/11/2024 10:08 AM CDT Temperature 36.1 C (96.9 F) 10/11/2024 9:26 AM CDT Respiratory Rate 20 09/19/2024 1:21 PM CENTRALIZED TRAFFIC CONTROL OPERATOR Oxygen Saturation 97% 09/19/2024 1:21 PM CENTRALIZED TRAFFIC CONTROL OPERATOR Inhaled Oxygen Concentration - - Weight [...] 04/11/2024 Hepatitis C Completed 03/10/2023 PHQ-2 (Physician [place]) Completed 09/19/2024 Meningococcal B Vaccine Aged Out [...] this topic Medical Devices Implanted Type Area Coronary Care Unit Nurse Device Identifier Shelf Expiration Date Model / Serial / Lot Sling Obtryx Ii Halo - [id number] Implanted:Qty : 1 on 04/09/2023 by Channing Macdonald MD at [facility] Sling N/A: Urinary Bladder [employer]OVAN [id number] 12/28/2025 [id number] / / [id number] Procedures Procedure Name Priority Date/Time Associated Diagnosis Comments OUTSIDE LAB (SCAN ORDER) 11/19/2024 COLONOSCOPY Routine 04/11/2024 11:24 AM CDT MG [...] Recently Relevant to Health Maintenance Results * OUTSIDE LAB (SCAN ORDER) (11/19/2024) 11/19/2024 us [facility] Scanned SCANNING Final Resu lt * MG SCREENING W DUC JACY DIGI (04/09/2024 10:02 AM CDT) Anatomical Region Laterality Modality Breast Bilateral Mammography 04/11/2024 7:12 AM CDT Impressions 04/11/2024 7:14 AM CDT ===== IMPRESSION: ===== 1. Stable mammographic appearance with no new findings to suggest malignancy in either breast. Assessment: ACR BI-RADS 2 - BENIGN FINDING(S) Recommendation: 1:Routine Screening Bilateral Comments: Ordered By: CARMELO WALTERS Interpreted By: Julian Jenkins MD, 04/11/2024 7:12 AM Narrative 04/11/2024 7:14 AM CDT [address] [address] Examination: Digital bilateral screening mammogram with 3D [...] calcifications in either breast to suggest malignancy. Carmelo Walters MD MAMMO Final Result * HEPATITIS C ANTIBODY W/RFX TO HCV RNA (03/10/2023 2:06 PM CDT) HEPATITIS C AB NON-REACT BLANCA NON-REACT BLANCA [facility] Comment: HCV antibody was non-reactive. There is no laboratory evidence of HCV infection. In most cases, no further action is required. However, if recent HCV exposure is suspected, a test for HCV RNA (test code 25578) is suggested. For additional information please refer to http://education.Zaiseoul/faq/PQY05q5 (This link is being provided for informational/ educational purposes only.) 03/10/2023 2:06 PM CDT 03/10/2023 2:08 PM CDT Narrative JOHNNIE FIERRO - MIKEY ORDERS - 03/15/2023 5:53 PM CDT FASTING:YES FASTING: YES Resulting Agency Comment Performing Organization Information: Site ID: [place] Name: [email or web address] Address: [address] [place] [address] Director: Kevin Garcia MD Carmelo Walters MD LABORATORY Final Result JOHNNIE APPIAH [facility] [address] [address] [id number], from Last 3 Months or Most Recently Relevant to Health Maintenance Insurance [employer] Advance Directives * Full Code (Latest Code Status on File) Date Activated Date Inactivated Comments 04/09/2023 1:10 PM 04/10/2023 4:48 PM * Full Code Date Activated Date Inactivated Comments 02/03/2018 10:58 AM 02/04/2018 1:14 PM Care Teams Fire Fighter [employer] Relationship Specialty Start Date End Date Carmelo Walters MD [address] [facility] [address] [place] [address] PCP - General FAMILY PRACTICE 11/11/17
--- OUTSIDE RECORDS SUMMARY | 2024-11-25 00:45 | XMS_ITS | Encounter Summary ---
Author Organization [facility] Address [address] [place] [address] Care Team Providers Care Ventilated Rib Fitter Name Role Phone Carmelo Verduzco MD Primary Care Provider [phone] Encounter Details Date Type Department Care Team (Late st Contact Info) Description 08/26/2023 [employer] Message Enc [facility] Family Medicine [address], [address] [place] [phone] [facility] Provider hand Social History Tobacco Use Types Packs/Day Years Used Date Smoking Tobacco: Never Smokeless Tobacco: Never Alcohol Use Standard Drinks/Week Comments No 0 (1 standard drink = 0.6 oz pur e alcohol) PHQ-2 Answer Date Recorded Patient Health Questionnaire-2 Score 2 08/26/2023 Comments No Sex and Gender Information Value Date Recorded Sex Assigned at Female 09/19/2024 1:27 PM OUTSIDE SALESPERSON Legal Sex Female 5:32 PM CDT Gender Identity Female 09/19/2024 1:27 PM OUTSIDE SALESPERSON Sexual Orientation Not on file documented as [...] documented as of this encounter Care Teams Ventilated Rib Fitter Relationship Specialty Start Date End Date Carmelo Verduzco MD [address] [facility] [address] [place] [address] PCP - General FAMILY PRACTICE 11/11/17 documented as of this encounter
--- OUTSIDE RECORDS SUMMARY | 2024-11-25 00:45 | XMS_ITS | Encounter Summary ---
Author Organization [employer] Address [address] [place] [address] Care Team Providers Care Refinery Operator Name Role Phone Arlen Golden MD, Polo Felton Primary Care Provider Encounter Details Date Type Department Care Team (Late st Contact Info) Description 08/18/2008 Outpatient Historical [facility] Gabriel Jones MD NO ADDRESS ON FILE Social History Tobacco Use Types Packs/Day Years Used Date Smoking Tobacco: Never Assessed Comments Unknown Sex and Gender Information Value Date Recorded Sex Assigned at Not on file Legal Sex Female 5:37 AM PERSONNEL COUNSELOR Gender Identity Not on file Sexual Orientation Not on file documented as of this encounter Plan of Treatment Not on file documented as of this encounter Procedures Procedure Name Priority Date/Time Associated Diagnosis Comments US OB LTD 1 OR MORE FETUSES Timed Study 08/28/2008 2:14 PM PERSONNEL COUNSELOR documented in this encounter Results * US OB LTD 1 OR MORE FETUSES (08/28/2008 2:14 PM PERSONNEL COUNSELOR) Anatomical Region Laterality Modality Pelvis Other Narrative 08/28/2008 2:14 PM PERSONNEL COUNSELOR Results in [employer] Procedure Note 02/01/2009 Results in [employer] Gabriel Jones MD US ORDERABLES Final Result documented in this encounter Visit Diagnoses Not on filedocumented in this encounter Care Teams Refinery Operator Relationship Specialty Start Date End Date Polo Mckinley Jr., MD PCP - General Family Practice 03/29/14 documented as of this encounter
--- OUTSIDE RECORDS SUMMARY | 2024-11-25 00:45 | XMS_ITS | Encounter Summary ---
Author Organization [facility] Address [address] [place] [address] Care Team Providers Care Consumer Affairs Director Name Role Phone Carmelo Verduzco MD Primary Care Provider [phone] Encounter Details Date Type Department Care Team (Late st Contact Info) Description 08/31/2023 [employer]ut[employer] Message Enc [facility] Family Medicine - [place] [address] [facility], [address] [place] [phone] Carmelo Verduzco MD [address] [facility] [address] [place] [phone] [facility] Referral Social History Tobacco Use Types Packs/Day Years Used Date Smoking Tobacco: Never Smokeless Tobacco: Never Alcohol Use Standard Drinks/Week Comments No 0 (1 standard drink = 0.6 oz pur e alcohol) PHQ-2 Answer Date Recorded Patient Health Questionnaire-2 Score 2 08/26/2023 Comments No Sex and Gender Information Value Date Recorded Sex Assigned at Female 09/19/2024 1:27 PM FIRER GLOST KILN Legal Sex Female 5:32 PM CDT Gender Identity Female 09/19/2024 1:27 PM FIRER GLOST KILN Sexual Orientation Not on file documented as of this encounter Plan of Treatment Not on file documented as of this encounter Visit Diagnoses Not on filedocumented in this encounter Additional Health Concerns Assessment Noted Time PHQ-9 Depression Total Score: 0 10/18/19 22 8:13 AM CDT documented as of this encounter Care Teams Consumer Affairs Director Relationship Specialty Start Date End Date Carmelo Verduzco MD [address] [facility] [address] [place] [address] PCP - General FAMILY PRACTICE 11/11/17 documented as of this encounter
--- OUTSIDE RECORDS SUMMARY | 2024-11-25 00:45 | XMS_ITS | Clinical Summary ---
Author Organization [facility] Address [address] [place] [address] Care Team Providers Care Metal Ceiling Hanger Name Role Phone Carmelo Verduzco MD Primary Care Provider Source Comments [facility],non-owned Affiliates and Associated Physician Practices is amultiple site organization consisting of ambulatory clinics and hospital sitesin [place], [place], [place] and [place]. This disclosure is being madepursuant to the Care Everywhere program and may not contain all information available regarding this patient. Last updated 18.[facility] Allergies Active Allergy Reactions Criticality Noted Date [...] on file Legal Sex Female 6:35 AM NOTEREADER Gender Identity Not on file Sexual Orientation Not on file Last Filed Vital Signs Vital Sign Reading Time Taken Comments Blood Pressure 121/82 06/14/2018 11:10 AM NOTEREADER Pulse 91 06/14/2018 11:10 AM NOTEREADER Temperature 36.5 C (97.7 F) 06/14/2018 11:10 AM NOTEREADER Respiratory Rate - - Oxygen Saturation - - Inhaled Oxygen Concentration - - Weight 104.3 kg (230 lb) 06/14/2018 11:10 AM NOTEREADER Height 157.5 cm (5' 2 ) 06/14/2018 11:10 AM NOTEREADER Body Mass Index 42.07 06/14/2018 11:10 AM NOTEREADER Plan of Treatment Health Maintenance Due Date [...] Subscriber Plan / Payer (Ef fective 2015-Present) Name:Ava Phillips Relation to Subscriber:Self Name:Ava Phillips Payer ID:[id number] (NAIC) Type:[employer] Address: [place] [id number] [place] [phone] Care Teams Metal Ceiling Hanger Relationship Specialty Start Date End Date Carmelo Verduzco MD [address] [facility] [address] [place] [address] PCP - General Family Medicine 06/07/18
--- OUTSIDE RECORDS SUMMARY | 2024-11-25 00:45 | XMS_ITS | Encounter Summary ---
Author Organization [facility] Address [address] [place] [address] Care Team Providers Care Field Mechanic Name Role Phone Arlen Golden MD, Polo Felton Primary Care Provider Encounter Details Date Type Department Care Team (Late st Contact Info) Description 10/18/2008 Outpatient Historical HIS OB PREADMIT Marciano Grissom MD [address] [place] [phone] Normal Delivery Social History Tobacco Use Types Packs/Day Years Used Date Smoking Tobacco: Never Assessed Comments Unknown Sex and Gender Information Value Date Recorded Sex Assigned at Not on file Legal Sex Female 5:37 AM ACID FILLER Gender Identity Not on file Sexual Orientation [...] PATHOLOGY (10/20/2008 2:53 PM CDT) FINAL REPORT [address] [address] Patient: MADDISON PHILLIPS : 1975 Procedure Date: 10/20/2008 Accession Date: 10/20/2008 Case No: [id number] Ordering Dr: MARCIANO GRISSOM Case types AW, BW, FW, NW and SH are performed by [facility] [place], [place] SURGICAL PATHOLOGY & NON-GYNECOLOGIC CYTOPATHOLOGY REPORT [...] fibrin deposition; A3 and A4- unremarkable disc. [facility] 10.20.2008 06:44 pm Microscopic: The slides are labeled [id number]. Sections display no intrinsic abnormalities in membranes or umbilical cord. Subchorionic thrombohematoma is present. There are focal areas of basilar perivillous fibrin deposition, which do not appear excessive in amount. [facility] 10.24.2008 10:56 am Staging Form: No ELECTRONIC SIGNATURE FOR YOSEPH FELTON M.D.- 10/24/08 02:25 pm INTERFACE SYSTEM 10/20/2008 2:53 PM CDT us Marciano Grissom MD PATHOLOGY/CYTOLOGY ORD ERABLES Final Result INTERFACE SYSTEM Refer to clinic/hospital department * TYPE AND SCREEN (10/19/2008 1:19 PM CDT) HISTORY CHECK No Historical ABO/Rh [facility] SPECIMEN LIFE 3 days from drawdate [facility] ABO/RH TYPE A Positive [facility] ANTIBODY SCREEN Negative [facility] Blood specimen (specimen) 10/19/2008 1:19 PM CDT Marciano Grissom MD BLOOD BANK ORDERABLES Edited Performing Organization Address City/[facility] Co de Phone Number INTERFACE SYSTEM Refer to clinic/hospital department [facility] CLIA# [id number] [address] [place] [address] * (ABNORMAL) CBC WITH DIFFERENTIAL (10/19/2008 1:19 PM CDT) HEMATOCRIT 39.3 35.5 - 44.0 % [facility] RDW-STDEV 46.6 37.1 - 48.7 fL [facility] RBC 4.37 3.90 - 4.90 M/uL [facility] MCHC 33.6 31.5 - 35.5 % [facility] MCV 89.9 82.0 - 99.0 fL [facility] PLATELETS 211 140 - 350 K/uL [facility] HEMOGLOBIN 13.2 11.8 - 14.8 g/dL [facility] RDW 14.2 11.5 - 14.5 % [facility] WBC 10.0(H) 4.0 - 9.8 K/uL [facility] MCH 30.2 27.2 - 32.6 pg [facility] MPV 11.0 9.3 - 12.4 fL [facility] BASOPHILS 0 0 - 2 % [facility] BASOPHILS ABSOLUTE 0.01 0.00 - 0.20 K/uL [facility] MONOCYTES 7 3 - 13 % [facility] MONOCYTE ABSOLUTE 0.66 0.10 - 1.30 K/uL [facility] NEUTROPHILS 71(H) 45 - 70 % [facility] NEUTROPHIL ABSOLUTE 7.08(H) 1.90 - 7.00 K/uL [facility] EOSINOPHILS 0 0 - 7 % [facility] EOSINOPHIL ABSOLUTE 0.03 0.00 - 0.70 K/uL [facility] LYMPHOCYTES 22 16 - 45 % [facility] LYMPHOCYTE ABSOLUTE 2.24 0.70 - 4.50 K/uL [facility] Blood specimen (specimen) 10/19/2008 1:19 PM CDT 10/19/2008 1:34 PM CDT us Marciano Grissom MD HEMATOLOGY ORDERABLES Edited INTERFACE SYSTEM Refer to clinic/hospital department [facility] CLIA# [id number] [address] [place] [address] documented in this encounter Visit Diagnoses Diagnosis Normal delivery documented in this encounter Care Teams Field Mechanic Relationship Specialty Start Date End Date Polo Mckinley Jr., MD PCP - General Family Practice 03/29/14 documented as of this encounter
--- OUTSIDE RECORDS SUMMARY | 2024-11-25 00:45 | XMS_ITS | Clinical Summary ---
Author Organization [facility] Address [address] [place] [address] Care Team Providers Care Medical Underwriter Name Role Phone Arlen Golden MD, Polo [...] on file Legal Sex Female 5:37 AM TRACK LAYER Gender Identity Not on file Sexual [...] Relevant to Health Maintenance Insurance Care Teams Medical Underwriter Relationship Specialty Start Date End Date Polo Mckinley Jr., MD PCP - General Family Practice 03/29/14
--- OUTSIDE RECORDS SUMMARY | 2024-11-25 00:45 | XMS_ITS | Encounter Summary ---
Author Organization [facility] Address [address] [place] [address] Care Team Providers Care Production Tool Engineer Name Role Phone Arlen Golden MD, Polo Felton Primary Care Provider Encounter Details Date Type Department Care Team (Late st Contact Info) Description 04/12/2008 Outpatient Historical [facility] Gabriel Jones MD NO ADDRESS ON FILE Social History Tobacco Use Types Packs/Day Years Used Date Smoking Tobacco: Never Assessed Comments Unknown Sex and Gender Information Value Date Recorded Sex Assigned at Not on file Legal Sex Female 5:37 AM ACTIVE DIRECTORY ADMINISTRATOR Gender Identity Not on file Sexual Orientation [...] on filedocumented in this encounter Care Teams Production Tool Engineer Relationship Specialty Start Date End Date Polo Mckinley Jr., MD PCP - General Family Practice 03/29/14 documented as of this encounter
--- OUTSIDE RECORDS SUMMARY | 2024-11-25 00:45 | XMS_ITS | Encounter Summary ---
Author Organization [facility] Address [address] [place] [address] Care Team Providers Care Data Warehouse Administrator Name Role Phone Arlen Golden MD, Polo Felton Primary Care Provider Encounter Details Date Type Department Care Team (Late st Contact Info) Description 08/02/2008 Outpatient Historical HIS OB PREADMIT Marciano Grissom MD [address] [place] [phone] Normal Delivery Social History Tobacco Use Types Packs/Day Years Used Date Smoking Tobacco: Never Assessed Comments Unknown Sex and Gender Information Value Date Recorded Sex Assigned at Not on file Legal Sex Female 5:37 AM COST MANAGER Gender Identity Not on file Sexual Orientation Not on file documented as of this encounter Plan of Treatment Not on file documented as of this encounter Visit Diagnoses Diagnosis Normal delivery documented in this encounter Care Teams Data Warehouse Administrator Relationship Specialty Start Date End Date Polo Mckinley Jr., MD PCP - General Family Practice 03/29/14 documented as of this encounter
--- OUTSIDE RECORDS SUMMARY | 2024-11-25 00:45 | XMS_ITS | Encounter Summary ---
Author Organization [employer] Address [address] [place] [address] Care Team Providers Care Patent Paralegal Name Role Phone Arlen Golden MD, Polo Felton Primary Care Provider Encounter Details Date Type Department Care Team (Late st Contact Info) Description 05/14/2008 Outpatient Historical [facility] Gabriel Jones MD NO ADDRESS ON FILE Social History Tobacco Use Types Packs/Day Years Used Date Smoking Tobacco: Never Assessed Comments Unknown Sex and Gender Information Value Date Recorded Sex Assigned at Not on file Legal Sex Female 5:37 AM CLEAN ROOM OPERATOR Gender Identity Not on file Sexual Orientation Not on file documented as of this encounter Plan of Treatment Not on file documented as of this encounter Procedures Procedure Name Priority Date/Time Associated Diagnosis Comments US OB LTD 1 OR MORE FETUSES Timed Study 06/06/2008 9:10 AM CLEAN ROOM OPERATOR documented in this encounter Results * US OB LTD 1 OR MORE FETUSES (06/06/2008 9:10 AM CLEAN ROOM OPERATOR) Anatomical Region Laterality Modality Pelvis Other Narrative 06/06/2008 9:10 AM CLEAN ROOM OPERATOR Results in [facility] Procedure Note 02/01/2009 Results in [facility] Gabriel Jones MD US ORDERABLES Final Result documented in this encounter Visit Diagnoses Not on filedocumented in this encounter Care Teams Patent Paralegal Relationship Specialty Start Date End Date Polo Mckinley Jr., MD PCP - General Family Practice 03/29/14 documented as of this encounter
--- OUTSIDE RECORDS SUMMARY | 2024-11-25 00:45 | XMS_ITS | Encounter Summary ---
Author Organization [facility] Address [address] [place] [address] Care Team Providers Care Pump Runner Name Role Phone Carmelo Verduzco MD Primary Care Provider [phone] Encounter Details Date Type Department Care Team (Late st Contact Info) Description 10/04/2024 Weottat Message Enc [facility] Orthopedic & Sports Medicine - [place] [address], [place] [id number] Omero Cedillo MD [address] [place] [address] Pain in left hand Social History Tobacco [...] Sex Assigned at Female 09/19/2024 1:27 PM SKATE BOARDER Legal Sex Female 5:32 PM CDT Gender Identity Female 09/19/2024 1:27 PM SKATE BOARDER Sexual Orientation Not on file documented as of this encounter Plan of Treatment Not on file documented as of this encounter Visit Diagnoses Not on filedocumented in this encounter Additional Health Concerns Assessment Noted Time PHQ-9 Depression Total Score: 0 10/18/19 22 8:13 AM CDT documented as of this encounter Care Teams Pump Runner Relationship Specialty Start Date End Date Carmelo Verduzco MD [address] [facility] [address] [place] [address] PCP - General FAMILY PRACTICE 11/11/17 documented as of this encounter
--- OUTSIDE RECORDS SUMMARY | 2024-11-25 00:45 | XMS_ITS | Continuity of Care Document ---
[facility] Address [address] [place] [address] Phone Care Team Providers Care Preflight Inspector Name Role Phone Lisseth PT, DPT, Lili Unavailable Unavail able Procedures Procedure Date Therapeutic Activities Neuromuscular Re-Ed Manual Therapy Hot [...] Diagnoses Date Provider Providers Copied on Encounter [facility], [facility] [address], [place], [place], [id number], [place] tel:[phone] [place] No Information Henrichs Lili. . Referring Provider: [address], [place], [address]. tel:[phone], [id number], tel:[phone] [place] No Information Henrichs Lili. . Referring Provider: [address], [place], [address]. tel:[phone], [id number], tel:[phone] [place] No Information Henrichs Lili. . Referring Provider: [address], [place], [address]. tel:[phone], [id number], tel:[phone] [place] No Information Amilcar Joanna. [address] [place] [address], [address], [place], [facility], . tel:[phone] Referring Provider: [address], [place], [address]. tel:[phone], [id number], tel:[phone] [place] No Information Henrichs Lili. . Referring Provider: [address], [place], [address]. tel:[phone], [id number], tel:[phone] [place] No Information Henrichs Lili. . Referring Provider: [address], [place], [address]. tel:[phone] [facility] [place], [address], [place], [place], [id number], tel:[phone] [place] No Information Lisseth Pearson. . Referring Provider: Calvin Duque, [address], [place], [address]. tel:[phone] Family History Family Member Type Diagnosis Age At Onset No Information Payers Payer name Insurance type Covered democrat ID Authoriza tion(s) [facility] CI [id number] Social History Type Description Quantity Date Captured [...]
--- OUTSIDE RECORDS SUMMARY | 2024-11-25 00:45 | XMS_ITS | Encounter Summary ---
Author Organization [facility] Address [address] [place] [address] Care Team Providers Care Boat Dispatcher Name Role Phone Carmelo Verduzco MD Primary Care Provider [phone] Encounter Details Date Type Department Care Team (Late st Contact Info) Description 12/02/2019 Prep for Procedure [facility] [place], [place] [id number] Wayne Draper MD [address] [place] [address] Social History Tobacco Use Types Packs/Day Years Used Date Smoking Tobacco: Never Smokeless Tobacco: Never Alcohol Use Standard Drinks/Week Comments No 0 (1 standard drink = 0.6 oz pur e alcohol) Comments No Sex and Gender Information Value Date Recorded Sex Assigned at Female 09/19/2024 1:27 PM MANUFACTURER REPRESENTATIVE Legal Sex Female 5:32 PM CDT Gender Identity Female 09/19/2024 1:27 PM MANUFACTURER REPRESENTATIVE Sexual Orientation Not on file COVID-19 Exposure [...] DETECTED NOT DETECTED 12/05/2019 8:52 AM CDT [facility] NASOPHARYNGEAL SWAB / Unknown 12/03/2019 10:20 AM CDT us Wayne Draper MD MICROBIOLOGY - GENERAL ORDERABL ES Final Result [facility] [address] [place] [address], documented in this encounter Visit Diagnoses Diagnosis Preop examination- Primary Preoperative examination, unspecified documented in this encounter Additional Health Concerns Infection Onset Date Last Indicated Resolved Time COVID-19 Rule Out 12/03/2019 12/03/2019 12/05/2019 8:52 AM CDT documented as of this encounter Care Teams Boat Dispatcher Relationship Specialty Start Date End Date Carmelo Verduzco MD [address] [facility] [address] [place], [place] [id number] PCP - General FAMILY PRACTICE 11/11/17 documented as of this encounter
[2024-11-25 06:32] VITALS: BP 131/96; PULSE 80; RESP 16; TEMP 36.2; O2SAT 98
--- NOTE | 2024-11-25 06:57 | WPDANESEPPF ---
Anes - Initial Pre Proc Eval Procedure: Operation Date: 11/25/24 07:30 Proposed Procedures p Cystoscopy, Injection Bulking Agent, Possible Excision Exposed Vaginal Mesh - Channing Macdonald MD Date/Time: 11/25/24 06:57 Surgeon: Channing Macdonald MD Pre Op Diagnosis: stress incontinence Patient Data Age: 49 Gender: F Height: 1.57 m Weight: 97.6 kg Allergies Allergy/AdvReac Type Severity Reaction Status Date / Time aloe Allergy Mild Rash Verified 11/25/24 07:01 meperidine Allergy Unknown Rash Verified 11/25/24 07:01 Home Medications ?Medication ?Instructions ?Recorded ?Confirmed ?Type escitalopram oxalate 20 mg tablet 20 mg PO DAILY 12/15/23 11/25/24 History fenofibrate 160 mg tablet 160 mg PO DAILY 12/15/23 11/15/24 History diclofenac sodium 75 mg 75 mg PO BID 11/15/24 11/25/24 History tablet,delayed release Patient hx anesthesia problems: none Family hx anesthesia problems: none Results Review: All pre-operative results and documents have been reviewed as part of the pre-operative evaluation. [facility] Past Medical History Medical History (Updated 11/24/24 @ 16:28 by Jose Diaz DO) Hyperlipidemia Surgical History Surgical History History of back surgery History of carpal tunnel surgery H/O: hysterectomy History of delivery Family History Family History Father Hypertension Heart disease Skin cancer Depression Mother Depression Hypertension Breast cancer Sibling Hypertension Skin cancer Grandparent Skin cancer Hypertension Heart disease Thyroid disorder Social History Social History Smoking status: Never smoker Alcohol intake: never Substance use: never Substance use type: does not use Do You Feel Safe in your Home?: Yes Lack of Transportation: No Lack of Food: Never True Current Housing: I Have Housing Concerned About Future Housing: No Difficulty Paying Gas/Electric Bills: No Difficulty Paying for Meds: No Currently Unemployed: No Education: High School Diploma/GED Difficulty w/ Childcare or Family Care: No Living arrangements: with family Spiritual care concerns: No Anes - Eval Final PreProcedure Day of Procedure 11/25/24 06:57 Patient weight: obese Heart: regular rate and rhythm Lungs: clear to auscultation Airway: Mallampati scale class II Neurological: alert and oriented Last oral intake: >/= 8 hours ASA classification: II Emergent: no Anesthetic plan: proceed Anesthesia type and monitoring: general GIVS and standard monitoring Results Review: All pre-operative results and documents have been reviewed as part of the pre-operative evaluation. Informed Consent: The patient's anesthetic plan and its attendant risks and benefits were discussed with the patient/family/POA. Questions were solicited and answers provided to the satisfaction of the patient/family/POA.
[2024-11-25 07:06] VITALS: BMI 39.0
--- NOTE | 2024-11-25 07:15 | WPDHPUPDATE1 ---
History and Physical Update Update Date/Time: 11/25/24 07:15 History and Physical has been reviewed, including an updated exam of the patient. There are NO changes in the patient's condition. Risks, benefits, and alternatives have been discussed and questions answered. Patient agrees to proceed with procedure.
[2024-11-25] MEDS: ceFAZolin 2 GM/D5W 50 ML 2 GM/50 ML BAG IVPB (07:24)
[2024-11-25] MEDS: LACTATED RINGERS 1,000 ML 30 ML IV CONT (07:26)
[2024-11-25] MEDS: LIDOCAINE 2% GEL UROJET 10 ML PKG MUCOUS MEM (07:44)
[2024-11-25] MEDS: LIDO 1%/EPINEPHRINE 1:100,000 50 ML VIAL 20 ML INFILTRATE (07:44)
[2024-11-25 08:06] VITALS: BP 110/82; PULSE 84; RESP 14; O2SAT 100
--- NOTE | 2024-11-25 08:06 | W.PM.PROC2 ---
Procedure Note - Detailed Date of Procedure 11/25/24 Pre-op Diagnosis Exposed vaginal mesh Intrinsic sphincter deficiency Post-op Diagnosis Same Procedure Performed Excision of vaginal mesh exposure Cystoscopy with suburethral injection of implant material Surgeon Channing Macdonald MD Anesthesia MAC and Local Indications This is a woman with a history of urethral sling procedure done at the time of her hysterectomy. She has recurrent stress incontinence as well as vaginal mesh exposure. She presents for excision of vaginal mesh exposure and a bulking agent. She understands risks of bleeding, infection, inability to remove the mesh. Recurrent mesh exposure, recurrent or persistent stress incontinence, need for ancillary procedures, hip and leg pain, dyspareunia, need for repeat procedures, urinary retention requiring catheterization. She agrees to proceed Findings Excision of small area of exposed vaginal mesh Successful bulking procedure Description of Procedure She was correctly identified. Informed consent was obtained. She was from the operating room. She was given monitored anesthesia care. She was placed in dorsal lithotomy position. She was prepped draped sterile fashion. She was given appropriate perioperative antibiotics. A time-out was performed. I placed a [place] retractor. I anesthetized the skin in the area of the hooks to secure the retractor. Her body habitus did limit exposure. I was able to find the area of exposed vaginal mesh. It was the midline. There was some stony debris on top of the mesh. I grafts the mesh with an Allis clamp. I then dissected out laterally and removed a less than 1 cm segment of the exposed mesh. There was no other exposed mesh in the area and it did not need to close the area as there was good granulation tissue a and no bleeding. On cystoscopy she had no intra foreign bodies. Ureteral orifices were normal. Urethra was normal as well without foreign body. Urethra open consistent with intrinsic sphincter deficiency. I chose a site in the mid urethra 2 cm distal bladder neck. I injected bulking agent circumferentially forming several large pros Coaptite in the urethra. Due to the significance of her incontinence I did use both syringes of material. There was excellent bulking effect. Her bladder was left partially full. She was awakened transferred to PACU in stable condition. Estimated Blood Loss 1 Drains No Packing No Pathology Yes (Exposed mesh for gross only) Complications None Condition Stable Disposition PACU
[2024-11-25 08:30] VITALS: BP 117/65; PULSE 85; RESP 20
[2024-11-25] MEDS: oxyCODONE HCL (*CRX) 5 MG TAB IR PO (08:33)
[2024-11-25 09:00] VITALS: BP 129/71; PULSE 70; RESP 20
[2024-11-25] MEDS: KETOROLAC 30 MG/ML VIAL (*BKC) IV PUSH (09:04)
[2024-11-25 09:30] VITALS: BP 118/75; PULSE 76; RESP 20
[2024-11-25 09:50] VITALS: BP 116/68; PULSE 77; RESP 20
== END 2024-11-25 10:10 | disposition home or self-care (01) ==
PROVIDERS: PCP Family Medicine; Visit Provider Urology
PROC: 3E0K8GC Introduction of Other Therapeutic Substance into Genitourinary Tract, Via Natural or Artificial Opening Endoscopic (ICD-10-PCS; CPT 57295; principal; 2024-11-25 07:30)
DX: T83.721A Exposure of implanted vaginal mesh into vagina, initial encounter (principal); N36.42 Intrinsic sphincter deficiency (ISD); N39.3 Stress incontinence (female) (male); Y83.1 Surgical operation with implant of artificial internal device as the cause of abnormal reaction of the patient, or of later complication, without mention of misadventure at the time of the procedure; E66.9 Obesity, unspecified; Z68.39 Body mass index [BMI] 39.0-39.9, adult
CPT/HCPCS: 57295; 51715; 88300; A9270; J0690; J1100; J1885; J2003; J2004; J2250; J2405; J2704; J3010; J7120; L8606

== ENCOUNTER 2025-04-07 07:51 | Outpatient (CLI) | payer OTHER, SELFPAY ==
--- NOTE | ~2025-04-07 | MR_ITS ---
EXAMINATION: MR lumbar spine wo con DATE: 04/07/2025 08:20 INDICATION: Other intervertebral disc displacement. Left leg numbness and weakness. TECHNIQUE: Magnetic resonance imaging (MRI) of the lumbar spine was performed without intravenous contrast. Sequences included sagittal T2-weighted FSE, sagittal T2-weighted FS FSE, sagittal T1-weighted FSE, and axial T2-weighted FSE. COMPARISON: None FINDINGS: There is 3 mm retrolisthesis of L1 on L2 and L2 on L3. There is mild chronic anterior wedging of T12 and L1 vertebral bodies. There is moderately decreased disc height from T12-L1 through L4-L5 and severely decreased disc height at L5-S1. The distal spinal cord signal intensity is normal. The conus medullaris is at L1. The following disc levels are specifically discussed: L1-L2: The disc is bulging with superimposed central extrusion. There is severe right and moderate left facet joint osteoarthritis. There is mild right and moderate left neural foraminal stenosis. There is mild central canal stenosis. L2-L3: The disc is bulging with superimposed central extrusion. There is severe bilateral facet joint osteoarthritis. There is moderate bilateral neural foraminal stenosis. There is mild central canal stenosis. There is posterior decompression. L3-L4: The disc is bulging with superimposed central extrusion. There is severe right facet joint osteoarthritis. There is likely ankylosis of the left facet joint with mild hypertrophy. There is mild right and moderate left neural foraminal stenosis. There is mild central canal stenosis. There is posterior decompression. L4-L5: The disc is bulging with superimposed left central extrusion. There is severe bilateral facet joint osteoarthritis. There is mild right and moderate left neural foraminal stenosis. There is mild central canal stenosis. There is moderate stenosis of left lateral recess. L5-S1: The disc is bulging and has an annular fissure. There is severe bilateral facet joint osteoarthritis. There is moderate bilateral neural foraminal stenosis. There is mild central canal stenosis. There is posterior decompression. IMPRESSION: 1. Severe lumbar spondylosis. Reviewed, dictated and finalized at location E.
== END 2025-04-07 07:52 | disposition home or self-care (01) ==
LOC: MICIMG 07:52
PROVIDERS: PCP Family Medicine; Visit Provider Neurological Surgery
DX: M51.26 Other intervertebral disc displacement, lumbar region (principal); M47.816 Spondylosis without myelopathy or radiculopathy, lumbar region
CPT/HCPCS: 72148

== ENCOUNTER 2025-05-08 17:23 | Outpatient (CLI) | payer OTHER, SELFPAY | END 2025-05-08 17:24 | disposition home or self-care (01) | LOC: ANHLAB 17:24 | PROVIDERS: PCP Family Medicine; Visit Provider Urology | DX: N36.42 Intrinsic sphincter deficiency (ISD) (principal) | CPT/HCPCS: 87086 ==

== ENCOUNTER 2025-05-15 01:23 | Day surgery (SDC) | payer OTHER, SELFPAY ==
--- OUTSIDE RECORDS SUMMARY | 2019-08-10 03:30 | XMS_ITS | Continuity of Care Document ---
Author Organization [facility] Address [address] [place] [address] Phone Care Team Providers Care Cardiology Teacher Name Role Phone Lisseth PT, DPT, Lili Unavailable Unavail able Procedures Procedure Date Therapeutic Activities Manual Therapy Neuromuscular Re-Ed Hot or Cold Pack Therapeutic Activities Neuromuscular Re-Ed Manual Therapy Hot or Cold Pack Therapeutic Activities Neuromuscular Re-Ed Therapeutic Exercise Manual Therapy Hot or Cold Pack Therapeutic Activities Neuromuscular Re-Ed Therapeutic Exercise Manual Therapy Hot or Cold Pack Therapeutic Activities Therapeutic Exercise Manual Therapy Hot or Cold Pack Therapeutic Activities Therapeutic Exercise Hot or Cold Pack Manual Therapy PT Evaluation Moderate Complexity Therapeutic Activities Manual Therapy Hot or Cold Pack Advance Directives Directive Yes / No Effective Date File Name No Information Encounters Encounter Description Practice Location Reason(s) For Visit Diagnoses Date Provider Providers Copied on Encounter [facility], [facility] [address], [place], [place], [id number], [place] tel:[phone] [place] No Information Henrichs Lili. . Referring Provider: [address], [place], [address]. tel:[phone], [id number], tel:[phone] [place] No Information Henrichs Lili. . Referring Provider: [address], [place], [address]. tel:[phone], [id number], tel:[phone] [place] No Information Henrichs Lili. . Referring Provider: [address], [place], [address]. tel:[phone], [id number], tel:[phone] [place] No Information Amilcar Joanna. [address] [place] [address], [address], [place], [facility], . tel:[phone] Referring Provider: [address], [place], [address]. tel:[phone], [id number], tel:[phone] [place] No Information Henrichs Lili. . Referring Provider: [address], [place], [address]. tel:[phone], [id number], tel:[phone] [place] No Information Henrichs Lili. . Referring Provider: Andrew [address], [place], [address]. tel:[phone] [facility], [address], [place], [place], [id number], tel:[phone] [place] No Information Lisseth Pearson. . Referring Provider: Calvin Duque, [address], [place], [address]. tel:[phone] Family History Family Member Type Diagnosis Age At Onset No Information Payers Payer name Insurance type Covered alliance party ID Authoriza tion(s) [facility] CI [id number] Social History Type Description Quantity Date Captured Comments Sex Female Smoking Status No Information Chief Complaint And Reason For Visit No Information Reason For Referral Reason For Referral No Information Plan Of Treatment Date Type Action Status Referral Ordered: PCP timeframe: 1 week. (related to Overweight) ordered History Of Present Illness Encounter Date Complaint History Of Prese nt Illness No Information Functional Status Date Functional Assessmen t No Information Instructions Date Instruction Additional Infor mation No Information Assessments Type Assessment Date No Information Patient Care Teams Name Effective Dates (start - stop) Status Members No Information
[2025-05-05 14:48] VITALS: BMI 39.4
--- NOTE | 2025-05-05 14:49 | PC.NURSE ---
[facility] has started construction of its new state of the art ER which will open Spring 2026. With this, we anticipate parking may be a challenge for some our surgical patients and families. Parking spaces are limited but are available for all Surgical, obstetrics, and ER patients sharing this lot. If you arrive and find you are having a hard time finding a parking space, please note that we understand the challenges, please drive around the hospital and park near Hospital Entrance 1. When you enter this entrance, you can ask a volunteer to direct or take you back to the surgical waiting area to check in. We appreciate everyone?s understanding of these expected challenges while we build for your future. Report to the Outpatient Waiting Room, entrance under the green pavilion located off [address], at time _0930_ on date _[id number]_. Planned Procedure Time: _1130_.? Time changes happen often and if your time is changed the preop area will call you the afternoon before. - You and your visitor will be asked to self-screen and do not enter if you have any COVID symptoms. Please call surgeon if you need to reschedule. - A mask is optional within the hospital at this time. Patients may have clear liquids (water, carbonated beverages, clear teas, apple juice) until 3 hours prior to surgery with a maximum of 20 ounces. - No food from midnight until time of surgery and no smoking, or chewing tobacco (or any form of nicotine). No chewing gum, candy or mints. Take only the following medications with a SIP of water on the morning of surgery: _Escitalopram__ DO NOT STOP ANY OF YOUR OTHER PRESCRIPTION MEDICATIONS PRIOR TO SURGERY EXCEPT THE FOLLOWING Hold all vitamins and supplements for 3 days per anesthesiologist. Medications to discontinue per physician __Nabumetone please ask Dr Mcadonald's office if need to hold.____ Date to take last dose Please no make-up, nail eritrean, hairspray, perfume, deodorant, or body powder the day of surgery.? No jewelry (including any body piercings) or valuables the day of surgery, leave them at home.? Please take a shower or bath the night before, or the morning of, surgery with an antibacterial soap.? Wear comfortable, loose fitting clothing.? - Jewelry must be removed prior to entering the operating room.? Rings and piercings that are not removed may be cut off. - The hospital will not accept responsibility for valuables.? - Please leave all valuables, including medications, at home the day of surgery. If you are going home after surgery, a licensed transportation driver must drive you home.? - NO public transportation without another adult if you receive anesthesia. - We recommend that an adult stay with you for 24 hours following discharge. - We also recommend that you do not drive, make important decision, drink alcoholic beverages, or take any drugs that were not prescribed by your health care provider for at least 24 hours after your discharge time. Follow any additional instructions given to you from your surgeon. Telephone instructions given to __Maddison__and asked if any additional questions and then verbalized understanding. Patient advised to call surgeon office or pre surgery nurse liaison [phone] if any additional questions.
--- NOTE | 2025-05-12 08:52 | PM.IMHP ---
H&P: HPI History of Present Illness Date/Time: 05/12/25 08:52 Chief Complaint: surgery Narrative: ISD-repeat bulking agent Review of Systems Review of Systems: All systems reviewed & are unremarkable except as noted in HPI and below PMFSH Past Medical History Medical History Hyperlipidemia Surgical History Surgical History History of back surgery History of carpal tunnel surgery H/O: hysterectomy History of delivery Family History Family History Father Hypertension Heart disease Skin cancer Depression Mother Depression Hypertension Breast cancer Sibling Hypertension Skin cancer Grandparent Skin cancer Hypertension Heart disease Thyroid disorder Social History Social History Smoking status: Never smoker Alcohol intake: never Substance use: never Substance use type: does not use Do You Feel Safe in your Home?: Yes Lack of Transportation: No Lack of Food: Never True Current Housing: I Have Housing Concerned About Future Housing: No Difficulty Paying Gas/Electric Bills: No Difficulty Paying for Meds: No Currently Unemployed: No Education: High School Diploma/GED Difficulty w/ Childcare or Family Care: No Living arrangements: with family Spiritual care concerns: No Meds Home Medications and Allergies Home Medications ?Medication ?Instructions ?Recorded ?Confirmed ?Type escitalopram oxalate 20 mg tablet 20 mg PO DAILY 12/15/23 05/05/25 History fenofibrate 160 mg tablet 160 mg PO DAILY 12/15/23 05/05/25 History nabumetone 750 mg tablet 750 mg PO BID 05/05/25 05/05/25 History Allergies Allergy/AdvReac Type Severity Reaction Status Date / Time aloe Allergy Mild Rash Verified 05/05/25 14:38 meperidine Allergy Unknown Rash Verified 05/05/25 14:38 Exam Narrative: obese NAD normal breathing Assessment and Plan Assessment and plan (1) Intrinsic sphincter deficiency (ISD): Code(s): N36.42 - Intrinsic sphincter deficiency (ISD) Status: Acute Assessment and Plan: cysto/bulking agent expectaitons discussed
--- OUTSIDE RECORDS SUMMARY | 2025-05-15 01:27 | XMS_ITS | Encounter Summary ---
Author Organization [facility] Address [address] [place] [address] Care Team Providers Care Quality Assurance Supervisor Chassis Name Role Phone Arlen Golden MD, Polo Felton Primary Care Provider Encounter Details Date Type Department Care Team (Late st Contact Info) Description 03/31/2008 Outpatient Historical HIS PATIENT IN A BED Marciano Grissom MD [address] [place] [address] [address] [place] [address] Linda Barrientos MD [address] [place] [phone] Social History Tobacco Use Types Packs/Day Years Used Date Smoking Tobacco: Never Assessed Comments Unknown Sex and Gender Information Value Date Recorded Sex Assigned at Not on file Legal 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 [place] [address] documented in this encounter Visit Diagnoses Not on filedocumented in this encounter Care Teams Quality Assurance Supervisor Chassis Relationship Specialty Start Date End Date Polo Mckinley Jr., MD PCP - General Family Practice 03/29/14 documented as of this encounter
--- OUTSIDE RECORDS SUMMARY | 2025-05-15 01:27 | XMS_ITS | Encounter Summary ---
Author Organization [facility] Address 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, [place] [address] Patient: MADDISON PHILLIPS : 1975 Procedure Date: 10/20/2008 Accession Date: 10/20/2008 Case No: [id number] Ordering Dr: MARCIANO GRISSOM Case types AW, BW, FW, NW and SH are [place] [facility] [place] SURGICAL PATHOLOGY & NON-GYNECOLOGIC CYTOPATHOLOGY REPORT [...] fibrin deposition; A3 and A4- unremarkable disc. [facility] 10.20.2008 06:44 pm Microscopic: The slides are labeled [id number]. Sections display no intrinsic abnormalities in membranes or umbilical cord. Subchorionic thrombohematoma is present. There are focal areas of basilar perivillous fibrin deposition, which do not appear excessive in amount. [facility] 10.24.2008 10:56 am Staging Form: No ELECTRONIC SIGNATURE FOR YOSEPH FELTON M.D.- 10/24/08 02:25 pm INTERFACE SYSTEM 10/20/2008 2:53 PM CDT Marciano Grissom MD PATHOLOGY/CYTOLOGY ORD ERABLES Final Result Performing Organization Address City/[facility]/ZIP Co de Phone Number INTERFACE SYSTEM Refer to clinic/hospital department * TYPE AND SCREEN (10/19/2008 1:19 PM CDT) HISTORY CHECK No Historical ABO/Rh [facility] SPECIMEN LIFE 3 days from drawdate [facility] ABO/RH TYPE A Positive [facility] ANTIBODY SCREEN Negative [facility] Blood specimen (specimen) 10/19/2008 1:19 PM CDT Marciano Grissom MD BLOOD BANK ORDERABLES Edited Performing Organization Address [facility] de Phone Number INTERFACE SYSTEM Refer to clinic/hospital department [facility] CLIA# [id number] [address] [facility] [place] [address] * (ABNORMAL) CBC WITH DIFFERENTIAL (10/19/2008 1:19 PM CDT) HEMATOCRIT 39.3 35.5 - 44.0 % [facility] RDW-STDEV 46.6 37.1 - 48.7 fL [facility] RBC 4.37 3.90 - 4.90 M/uL [facility] MCHC 33.6 31.5 - 35.5 % [facility] MCV 89.9 82.0 - 99.0 fL [facility] PLATELETS 211 140 - 350 K/uL [facility] HEMOGLOBIN 13.2 11.8 - 14.8 g/dL [facility] RDW 14.2 11.5 - 14.5 % [facility] WBC 10.0(H) 4.0 - 9.8 K/uL [facility] MCH 30.2 27.2 - 32.6 pg [facility] MPV 11.0 9.3 - 12.4 fL [facility] BASOPHILS 0 0 - 2 % [facility] BASOPHILS ABSOLUTE 0.01 0.00 - 0.20 K/uL [facility] MONOCYTES 7 3 - 13 % [facility] MONOCYTE ABSOLUTE 0.66 0.10 - 1.30 K/uL [facility] NEUTROPHILS 71(H) 45 - 70 % [facility] NEUTROPHIL ABSOLUTE 7.08(H) 1.90 - 7.00 K/uL [facility] EOSINOPHILS 0 0 - 7 % [facility] EOSINOPHIL ABSOLUTE 0.03 0.00 - 0.70 K/uL [facility] LYMPHOCYTES 22 16 - 45 % [facility] LYMPHOCYTE ABSOLUTE 2.24 0.70 - 4.50 K/uL [facility] Blood specimen (specimen) 10/19/2008 1:19 PM CDT 10/19/2008 1:34 PM CDT us Marciano Grissom MD HEMATOLOGY ORDERABLES Edited INTERFACE SYSTEM Refer to clinic/hospital department [facility] CLIA# [id number] [address] [place] [address] documented in this encounter Visit Diagnoses Diagnosis Normal delivery documented in this encounter Care Teams Link And Link Knitting Machine Operator Relationship Specialty Start Date End Date Polo Mckinley Jr., MD PCP - General Family Practice 03/29/14 documented as of this encounter
--- OUTSIDE RECORDS SUMMARY | 2025-05-15 01:27 | XMS_ITS | Clinical Summary ---
Author Organization [facility] Address [facility] [place] [address] Care Team Providers Care Director Business Integration Name Role Phone Ann-Marie Walters MD Primary Care Provider [phone] Allergies Active Allergy Reactions Criticality Noted Date Comments Aloe Rash Low 09/28/2013 Enoxaparin Rash,Hives Medium 01/31/2018 Heparin Rash,Unknown,Hives Medium 09/21/2017 Lidocaine Hives Medium 06/07/2018 Medications nitrofurantoin, macrocrystal-monoh ydrate, (MACROBID) 100 MG capsuleIndications :Recurrent UTI Take 1 capsule (100 mg total) by mouth daily as needed. 30 capsule 05/23/20 24 Active traMADol (ULTRAM) 50 MG tabletIndications: Acute Pain < 7 Day Supply Take 1 tablet (50 mg total) by mouth every 6 (six) hours as needed for Pain. Indications : Acute Pain < 7 Day Supply 20 tablet 06/08/20 24 Active guaiFENesin-codein e (GUAIFENESIN AC) 100-10 MG/5ML syrupIndications:C ough Take 5 mLs by mouth every 4 (four) hours as needed. Indications : Cough 118 mL 09/19/19 25 Active methylPREDNISolone , SALEEM, (MEDROL DOSEPAK) 4 MG tabletIndications: Allergic reaction 6 TABLETS ON DAY ONE, 5 TABLETS DAY TWO, 4 TABLETS DAY THREE, 3 TABLETS DAY FOUR, 2 TABLETS DAY FIVE, AND 1 TABLET DAY SIX 1 each 10/11/19 25 Active fenofibrate 160 MG tabletIndications: Mixed hyperlipidemia TAKE 1 TABLET BY MOUTH EVERY DAY 90 tablet 3 11/21/19 25 Active escitalopram (LEXAPRO) 20 MG tabletIndications: Anxiety TAKE 1 TABLET BY MOUTH EVERY DAY 90 tablet 3 02/21/20 25 Active diclofenac EC (VOLTAREN) 75 MG tabletIndications: Primary osteoarthritis of both hands TAKE 1 TABLET BY MOUTH TWICE A DAY 180 tablet 04/17/20 25 Active diclofenac EC (VOLTAREN) 75 MG tabletIndications: Primary osteoarthritis of both hands TAKE 1 TABLET BY MOUTH TWICE A DAY 180 tablet 01/16/20 25 025 Discontinued Active Problems Problem Noted Date Diagnosed Date [...] Encounters Date Type Department Care Team Description 05/08/2025 Scan [facility] INFO SRVCS Scanned, [facility] (SCAN) 04/17/2025 Results Follow-Up [facility] [address], [address] [place] [address] Ann-Marie Walters MD MG SCREENING W DUC JACY DIGI 04/15/2025 12:34 PM CDT - 04/15/2025 11:59 PM CDT Hospital Encounter [facility] [address] [place], [place] [phone] Ann-Marie Walters MD Discharge Disposition: Home or Self Care (Routine Discharge) 04/15/2025 Travel 04/07/2025 Scan [facility] HEALTH INFO SRVCS Scanned, [facility] MRI (SCAN) 03/23/2025 Scan [facility] INFO SRVCS Scanned, [facility] 03/09/2025 Scan [facility] INFO [facility]VCS Scanned, [facility] 03/07/2025 Scan [facility] INFO SRVCS Scanned, [facility] 02/21/2025 MyChart Message Enc [facility] 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 Sexual Orientation Not on file Last Filed Vital Signs Vital Sign Reading Time Taken Comments Blood Pressure 136/78 10/11/2024 10:08 AM CDT Pulse 66 10/11/2024 10:08 AM CDT Temperature 36.1 C (96.9 F) 10/11/2024 9:26 AM CDT Respiratory Rate 20 09/19/2024 1:21 PM CHAIR LIFT OPERATOR Oxygen Saturation 97% 09/19/2024 1:21 PM CHAIR LIFT OPERATOR Inhaled Oxygen Concentration - - Weight 95.9 kg (211 lb 6.4 oz) 10/11/2024 9:26 A M CDT Height 157.5 cm (5' 2) 10/11/2024 9:26 AM CDT p t states Body Mass Index 38.67 10/11/2024 9:26 AM CDT Plan of Treatment Health Maintenance Due Date Last Done Comments Hepatitis B Vaccines (1 of 3 - 19+ 3-dose series) 1995 Annual Physical 03/10/2024 03/10/2023, 04/25/2021 COVID-19 Vaccine (2024- season) 2025 11/23/2020, 11/02/2020 Influenza Adult (#1) 2025 05/11/2022, 04/25/20 21 Mammogram Screening 04/15/2027 04/15/2025, 04/09/2024, 03/14/2023, Additional history exists DTaP, Tdap and Td Vaccines (3 - Td or Tdap) 04/25/2031 04/25/2021, 08/01/2010, 04/03/2000 Colorectal Cancer Screening Colonoscopy (10 Years) 04/11/2034 04/11/2024, 04/11/2024 Hepatitis C Completed 03/10/2023 PHQ-2 (Physician [place]) Completed 09/19/2024 Hepatitis A Vaccines Aged Out No long er eligible based on patient's age to complete this topic Meningococcal B Vaccine Aged Out No l [...] this topic Medical Devices Implanted Type Area Bulbs Farmworker Device Identifier Shelf Expiration Date Model / Serial / Lot Sling Obtryx Ii Halo - [id number] Implanted:Qty : 1 on 04/09/2023 by Channing Macdonald MD at [facility] Sling N/A: Urinary Bladder [employer] [id number] 12/28/2025 [id number] / / [id number] Procedures Procedure Name Priority Date/Time Associated Diagnosis Comments OUTSIDE LAB (SCAN ORDER) 05/08/2025 MG SCREENING W DUC JACY DIGI Routine 04/15/2025 12:52 PM CDT Screening mammogram for breast cancer MRI GENERIC 04/07/2025 COLONOSCOPY Routine 04/11/2024 11:24 AM CDT HEPATITIS C ANTIBODY W/RFX TO HCV RNA [...] Maintenance Results * OUTSIDE LAB (SCAN ORDER) (05/08/2025) 05/08/2025 [facility] Scanned SCANNING Final Resu lt * MG SCREENING W DUC JACY DIGI (04/15/2025 12:52 PM CDT) Anatomical Region Laterality Modality Breast Bilateral Mammography 04/17/2025 10:1 3 AM CDT Impressions 04/17/2025 10:16 AM CDT IMPRESSION: No suspicious mammographic findings. Recommendation: 1. Routine Screening, Bilateral Assessment: ACR BI-RADS 1 - NEGATIVE Ordered By: ANN-MARIE WALTERS Interpreted By: Timoteo Thakkar MD, 04/17/2025 10:13 AM Narrative 04/17/2025 10:16 AM CDT [address] [id number] Examination: Screening bilateral mammogram Exam Date: 04/15/2025 12:35 PM Clinical history: Routine screening. Family history of breast cancer in her mother, aunt and great grandmother. Comparison: 04/09/2024, 03/14/2023 Technique: Digital screening mammography of both breasts was performed. Breast tomosynthesis acquisitions were obtained and reviewed. This study was read with the assistance of a computer-aided detection system. Tissue density: There are scattered areas of fibroglandular density. Findings: No suspicious masses, malignant appearing calcifications, skin thickening or other abnormalities are present. No significant change from the prior exam. Result [facility] Ann-Marie Walters MD MAMMO Final Result * MRI GENERIC (04/07/2025) Anatomical Region Laterality Modality Other 04/07/2025 us [facility] Scanned SCANNING Final Resu lt * HEPATITIS C ANTIBODY W/RFX TO HCV RNA (03/10/2023 2:06 PM CDT) HEPATITIS C AB NON-REACT BLANCA NON-REACT BLANCA DC Devices [facility] Comment: HCV antibody was non-reactive. There is no laboratory evidence of HCV infection. In most cases, no further action is required. However, if recent HCV exposure is suspected, a test for HCV RNA (test code 46730) is suggested. For additional information please refer to http://education.[employer]/faq/XUJ42g8 (This link is being provided for informational/ educational purposes only.) 03/10/2023 2:06 PM CDT 03/10/2023 2:08 PM CDT Narrative [facility] - 03/15/2023 5:53 PM CDT FASTING:YES FASTING: YES Resulting Agency Comment Performing Organization Information: Site ID: [id number] Name: [facility] Address: [address] [place] [address] Director: Kevin Garcia MD us Ann-Marie Walters MD LABORATORY Final Result [facility] [place] DC Devices [facility] [id number] [place] [address] from Last 3 Months or Most Recently Relevant to Health Maintenance Insurance [employer] Advance Directives * Full Code (Latest Code Status on File) Date Activated Date Inactivated Comments 04/09/2023 1:10 PM 04/10/2023 4:48 PM * Full Code Date Activated Date Inactivated Comments 02/03/2018 10:58 AM 02/04/2018 1:14 PM Care Teams Director Business Integration Relationship Specialty Start Date End Date Ann-Marie Walters MD [address] [facility] [address] [place], [place] [id number] PCP - General FAMILY PRACTICE 11/11/17
--- OUTSIDE RECORDS SUMMARY | 2025-05-15 01:27 | XMS_ITS | Encounter Summary ---
Author Organization [email or web address] Address 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
--- OUTSIDE RECORDS SUMMARY | 2025-05-15 01:27 | XMS_ITS | Data Portability ---
Author Organization [facility] [employer] , [facility] Address [address] [place] [address] Assessment No assessment recorded. Plan of Treatment Reminders Order Date Submit Date Provider Last Modified By Organization Details Last Modified Time Details Appointments None recorded. Lab None recorded. Referral None recorded. Procedures None recorded. Surgeries None recorded. Imaging None recorded. Medication Orders Estrace 0.01% (0.1 mg/gram) vaginal cream 023 023 [facility] [address], [address], 3 10:07:56 Lysteda 650 mg tablet 023 023 marko z494 [facility] [address], [address], 3 12:55:01 ferrous sulfate 325 mg (65 mg iron) tablet 023 023 [facility] [address], [address], 3 16:38:51 Patient TargetsNo targets recorded. Patient InstructionsNo instructions recorded. Reason for Referral None Reported. Results Created Date Observation Date Name Description Value Unit Range Abnormal Flag Note LastModifiedBy Organization Detail LastModifiedTime 04/09/2004/09/2023 HGB AND HCT hemoglobin 12.5 g/dL 12.0-1 6.0 Not Available [facility] (Lab) One [facility], [place], [address], 04/09/2023 13:50:21 04/09/2004/09/2023 HGB AND HCT hematocrit 39.1 % 38.0-4 8.0 Not Available [facility] (Lab) One [facility], [place], [address], 04/09/2023 13:50:21 04/09/2004/14/2023 BC SURGI MEJIA PATHO [facility]Y [facility] [place] [address] Phone : [phone] Fax: Depar tment of Patho logy Patho logy Repor t SURGI MEJIA FINAL REPOR T Patie nt Name: CHRISTIANNE BUITRAGO, BERTRAM DICKINSON [facility] cessi on#: [id number] : 1974 (Age: 47) Locat ion: SEOWM IF Gende r: F Colle cted Date: 2022 [facility] Rec #: [id number] Date Recei lola: 2022 Date Repor [...] 0.2 cm up to 0.6 cm in [facility]. The cervi x measu res 3.5 x [...] cm in great est dimen rubina. The rempaola hernándezg myome trium is pink- gordon with areas [...] prese nt in casse tte B2. :duc Varinder ng Fee Code( s): 31474 Not Available [facility] (Lab) One [facility], [place], [address], 04/14/2023 15:20:33 Result Notes None recorded. Problems Name Problem SNOMED Code Status Onset Date Resolution Date Notes Provider Name and Address Organization Details Recorded Time Mixed urinary incontin ence 719907339 Active 2017 Mixed incontin ence; Progress : [...] : YES ProblemS tatus: Current Not Available [facility] 19:23:08 Dysuria 37536649 Completed 201703/27/2018 Dysuria; Progress : Stable Added By: Jordyn Mai Add to Current Problems : NO ProblemS tatus: Resolve Painful micturit ion, unspecif ied; Progress : Stable Added By: Jordyn Mai Add to Current Problems : NO ProblemS tatus: Resolve Not Available [facility] 19:23:08 Problem Notes None recorded. Procedures Surgical History Date Name Laterality Status Provider Name and Address Organization Details Recorded Time 023 laparoscopic-assi sted vaginal hysterectomy completed Maddison Betancourt MD [address] [place] [address], [phone], [facility] 04/10/2023 18:50:03 023 insertion of transobturator tape for female urinary incontinence completed Maddison Betancourt MD [address] [place] [address], [phone], [facility] - [facility] 04/10/2023 18:50:49 022 Endometrial Biopsy completed Maddison Betancourt MD [address] [place] [address], [phone], [facility] - [facility] 04/25/2022 22:43:11 022 Most Recent Mammogram completed Fabiana Taylor [facility] - [facility] 03/25/2022 13:10:53 section completed Britany ziegler [facility] - [facility] 03/24/2022 21:59:48 procedure on back completed Lili Gandara [facility] - [facility] 03/10/2023 15:28:46 Imaging Results None recorded. Procedure Notes None recorded. Medical Equipment None Reported. Allergies Allergen ID Allergen Name Allergen Category Reaction Reaction Severity Criticality Documentation Date Start Date Code Code System Note Provider Name and Address Organization Details Recorded Time 188226 aloe extract food,medi cation Not available Not available Not available 05/17/20212017 33521 RxNorm Sever ity: Moder ate; Not Available [facility] 01:16:46 880636 Lovenox medicatio n Not available Not available Not available 05/17/20212017 13726 6 RxNorm Sever ity: Moder ate; Not Available [facility] 01:16:46 534169 heparin sodium, porcine medicatio n Not available Not available Not available 05/17/20212017 77025 9 RxNorm Sever ity: Moder ate; Not Available [facility] 01:16:46 Medications Name Sig Start Date Stop [...] completed Bactrim DS 160mg/80 0mg Tablet RxNorm: [id number] Allow Substitu tion: True Refill Denied: No [...] in Chloride 15mg Tablets, Extended Release RxNorm: [id number] Allow Substitu tion: True Refill Denied: No [...] Myrbetri q 50mg Tablets, Extended Release RxNorm: [id number] Allow Substitu tion: True Refill Denied: No Refill DateOccu rred: 11/06/19 18 Not Available Not Available Not Available Vitals Date Recorded Body height Body mass index (BMI) Body weight Systolic And Diastolic Provider Name and Address Organization Details Last Updated DateTime 09/09/2022 160.02 cm 38.3 kg/m2 17928.39 g 118/84 mm[Hg] [facility] 09/09/2022 16:20:11 Date Recorded Body height Body mass index (BMI) Body weight Systolic And Diastolic Provider Name and Address Organization Details Last Updated DateTime 03/10/2023 160.02 cm 38.4 kg/m2 04807.54 g 130/80 mm[Hg] Lili Gandara [facility] [employer] [facility] 03/10/2023 15:30:37 Date Recorded Body height Provider Name an d Address Organization Details Last Updated DateTime 04/18/2023 160.02 cm Justyna Buckley [facility] 04/18/2023 12:28:00 Date Recorded Body mass index (BMI) Body weight Body temperature Systolic And Diastolic Provider Name and Address Organization Details Last Updated DateTime 04/18/2023 38.2 kg/m2 15380.23 g 98 [degF] 120/82 mm[Hg] Joi Squires [facility] 04/18/2023 12:54:25 Date Recorded Body height Body mass index (BMI) Body weight Systolic And Diastolic Provider Name and Address Organization Details Last Updated DateTime 2022 160.02 cm 38.6 kg/m2 37616.42 g 116/84 mm[Hg] [facility] 2022 10:33:55 Date Recorded Body height Body mass index (BMI) Body weight Systolic And Diastolic Provider Name and Address Organization Details Last Updated DateTime 06/23/2023 160.02 cm 39.3 kg/m2 051332.5 1 g 110/70 mm[Hg] Lili Gandara [facility] [employer] 06/23/2023 09:53:39 Social History Question Answer Notes LastModified by Organizat ion Details LastModified Time Tobacco Smoking Status Never Smoker Chelsey Dominguez nae [facility] [employer] [facility] 04/08/2022 14:54:21 Are You Blind Or Do You Have [...] Sexually Active? Yes Information not available 03/25/2022 Sex: Female Functional Status Question Answer Note LastModified by Organizat ion Details LastModified Time Do you use any illicit or recreational drugs? No Information not available 04/08/2022 What is your level of alcohol consumption? None Information not available 04/08/2022 What is your exercise level? Occasional Information not available 04/08/2022 Mental Status None recorded. Family History Relationship Description Onset Age of this Age Resolved Age Notes LastModified by Organization Details LastModified Time Mother Malignant neoplasm of breast 50 Not available 2021 13:04:24 Maternal Grandmother Malignant neoplasm of colon 50 Not available 2021 13:04:24 Medical History Condition Response Other Cancer N High Blood Pressure N Colon Cancer N Cytomegalovirus N Hyperthyroidism N Breast Cancer N MRSA N Herpes (HSV) N Blood Transfusion N Lung Cancer N Depression N Hypothyroidism N Incontinence N Panic Attacks N Neurological Disorder N Deep Vein Thrombosis N Anxiety Disorder N Autoimmune disease N Arthritis N Tuberculosis/Positive PPD N Shingles N Polycystic Ovarian Syndrome N Cervical Cancer N Hematuria N Chlamydia N Stroke N Varicosities N Seasonal allergies [...] Diagnosis SNOMED-CT Code Diagnosis ICD10 Code Diagnosis IMO Codes Diagnosis Note [id number] Maddison Betancourt MD [facility] [address] [place] [address] 03/25/2022 12:29:23 03/27/2022 00:34:55 Menorrhagia 033202188 N92.0 Recent episode of severe menorrhagi a [...] bx 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 She is certain at this point in her life she does not want any further childbeari ng and wants to be done with fear of . Briefly discussed Mirena IUD, may also consider surgical options after we complete her work up [id number] Maddison Betancourt MD [address] [address] 04/08/2022 14:00:10 04/28/2022 15:11:39 Excessive and frequent menstruation 057183152 N92.0 discussed and reviewed ultrasound findings. Endometria l bx done today, follow up results [id number] Maddison Betancourt MD [address] [address] 2022 10:02:14 06/02/2022 09:22:34 Menometrorrhagia 164114927 N92.1 most likely DUB. Had few months [...] if heavy bleeding recurs, would repeat provera [id number] Maddison Betancourt MD [address] [address] 09/09/2022 15:53:39 09/16/2022 15:06:13 Mixed urinary incontinence 180691165 N39.46 discussed her urinary incontinen ce. Advise referral to Dr Macdonald to manage this problem [id number] Maddison Betancourt MD [address] [address] 03/10/2023 15:16:12 03/10/2023 18:30:10 Excessive and frequent menstruation 313044219 N92.0 Severe prolonged menstrual bleeding which has [...] add LAVH/BS to her surgery this day [id number] Maddison Betancourt MD [facility] h [address] [place] [address] 04/18/2023 12:09:10 04/20/2023 10:52:39 Postoperative visit 325428169 Z09 s/p LAVH/BS and left ov cystectomy , TOT sling by Dr Macdonald, 2 wk post op checkDiscu ssed pathology resultsDis cussed continued precaution s/limitati onsdiscuss ed wound careGiven 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 pt has appt to see Dr Macdonald in July. Will begin estradiol cream 1 g 3X weekly Health Concerns Section Related Observation LastModified by Organization Detai ls LastModified Time None Recorded Concern Status LastModified by Organization Details LastModified Time None Recorded Advance Directives Directive None Recorded Payers Insurance Date Sequence Insurance Name Policy Number Policy Patricia Covered Member ID Patricia Member ID Guarantor Name 06/20/2023 1 [facility] [id number] Maddison Gustafson [id number] Maddison Gustafson Notes Date Note Type Note Provider Name and Address Organization Details Recorded Time 2022 text/html ROS as noted in the HPI Maddison comes back in to review the [...] does not want to take hormonal methods long-term. She knows she cannot take ocp due [...] a 14 yr old. Maddison Betancourt MD [address] [place] [address], [phone], [facility] [employer] [facility] 2022 11:09:37 09/09/2022 text/html ROS as noted in the HPI Maddison is being seen for a f/u visit for irregular [...] Patient is very discouraged. Maddison Betancourt MD [address] [place] [address], [place], [address], [employer] [facility] 03/10/2023 04:43:04 03/10/2023 text/html Maddison is a 47 yr old who presents for a visit [...] Carmelo Verduzco this morning., Maddison Betancourt MD [address] [place] [address], [phone], [facility] [employer] [facility] 03/10/2023 18:30:00 04/18/2023 text/html Maddison returns for her first post op appt from her laparoscopic assisted total vaginal hysterectomy with bilateral salpingectomies and left ovarian cystectomy. She also had a midurethral bladder sling placed by Dr Macdonald.She had no intraoperative complications and was discharged POD 1.Uterine pathology showed fibroids and adenomyosisNaina is doing well, working from home on laptop.She feels very sore overall but is doing well. She is emptying bladder well. Did see Dr Macdonald and has a urine culture pendingShe notes that she is not leaking when she is coughing or sneezing as much, was able to go from wearing a depends to just a small pad Maddison Betancourt MD [address] [place] [address], [phone], [facility] [employer] [facility] 04/18/2023 13:14:22 06/23/2023 text/html ROS as noted in the HPI Maddison returns for a final post op check from her LAVH/BS/LEFT OV CYSTECTOMY done 04/09/23. She also had a TOT sling done by Dr Macdonald the same day.She experienced no post op complications.She reports that she is having some pinkish disch with intercourse and her stated that he can feel something Maddison Betancourt MD [address] [place] [address], [phone], [facility] [employer] [facility] 06/23/2023 10:08:31 OBGyn Episode Ob Episode Information Episode Created Date Number of Fetuses Patient Bloodtype Patient rh Status Prepregnancy Weight lbs Domestic Partner Domestic Partner Phone Father Name Breakfast Hostess Status 09/09/19 1 CLOSED Fetus Data First Name Last Name Admitted to NICU Weight (g) Sex Living Outcome Pediatric Complications Fetus ID Race Codes Race Delivery Type 3656.85 8704 F Full Term [id number] Primary Ton Calculation Initial Ton Date Initial [...]
--- OUTSIDE RECORDS SUMMARY | 2025-05-15 01:27 | XMS_ITS | Encounter Summary ---
Author Organization [employer] Address 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 Gender Identity Not on file Sexual Orientation Not on file documented as of this encounter Plan of Treatment Not on file documented as of this encounter Procedures Procedure Name Priority Date/Time Associated Diagnosis Comments US OB LTD 1 OR MORE FETUSES Timed Study 06/06/2008 9:10 AM SERVICE TRANSFORMER REPAIR SUPERVISOR documented in this encounter Results * US OB LTD 1 OR MORE FETUSES (06/06/2008 9:10 AM SERVICE TRANSFORMER REPAIR SUPERVISOR) Anatomical Region Laterality Modality Pelvis Other Narrative 06/06/2008 9:10 AM SERVICE TRANSFORMER REPAIR SUPERVISOR Results in [employer] Procedure Note 02/01/2009 Results in [employer] Gabriel Jones MD US ORDERABLES Final Result documented in this encounter Visit Diagnoses Not on filedocumented in this encounter Care Teams Accounting Teacher Relationship Specialty Start Date End Date Polo Mckinley Jr., MD PCP - General Family Practice 03/29/14 documented as of this encounter
--- OUTSIDE RECORDS SUMMARY | 2025-05-15 01:27 | XMS_ITS | Encounter Summary ---
Author Organization [facility] Address [address] [place] [address] Care Team Providers Care Mechanical Specialist Name Role Phone Carmelo Verduzco MD Primary Care Provider Encounter Details Date Type Department Care Team (Late st Contact Info) Description 03/08/2024 [employer] Gr[employer] Message Enc [facility] Family Medicine [facility] [address] [facility], [address] [place] [address] [place] [address] [place] [address] meds Social History Tobacco Use Types Packs/Day Years Used Date Smoking Tobacco: Never Passive Smoke Exposure: Past Smokeless Tobacco: Never Alcohol Use Standard Drinks/Week Comments No 0 (1 standard drink = 0.6 oz pur e alcohol) PHQ-2 Answer Date Recorded Patient Health Questionnaire-2 Score 2 08/26/2023 Comments No Sex and Gender Information Value Date Recorded Sex Assigned at Female 09/19/2024 1:27 PM PROPAGATOR LABORER Legal Sex Female 5:32 PM CDT Gender Identity Female 09/19/2024 1:27 PM PROPAGATOR LABORER Sexual Orientation Not on file documented as [...] checkher options she will send us a [employer] message on what she would like to [...] documented as of this encounter Care Teams Mechanical Specialist Relationship Specialty Start Date End Date Carmelo Verduzco MD [address] [facility] [address] [place] [address] PCP - General FAMILY PRACTICE 11/11/17 documented as of this encounter
--- OUTSIDE RECORDS SUMMARY | 2025-05-15 01:27 | XMS_ITS | Encounter Summary ---
Author Organization [facility] Address [address] [place] [address] Care Team Providers Care Technology Training Associate Name Role Phone Carmelo Verduzco MD Primary Care Provider [phone] Encounter Details Date Type Department Care Team (Late st Contact Info) Description 08/31/2023 Natural [employer] Message Enc [facility] Family Medicine - [place] [address] [facility], [address] [place] [phone] Carmelo Verduzco MD [address] [facility] [address] [place] [id number] [facility] Referral Social History Tobacco Use Types Packs/Day Years Used Date Smoking Tobacco: Never Smokeless Tobacco: Never Alcohol Use Standard Drinks/Week Comments No 0 (1 standard drink = 0.6 oz pur e alcohol) PHQ-2 Answer Date Recorded Patient Health Questionnaire-2 Score 2 08/26/2023 Comments No Sex and Gender Information Value Date Recorded Sex Assigned at Female 09/19/2024 1:27 PM CHILD CARE DIRECTOR Legal Sex Female 5:32 PM CDT Gender Identity Female 09/19/2024 1:27 PM CHILD CARE DIRECTOR Sexual Orientation Not on file documented as of this encounter Plan of Treatment Not on file documented as of this encounter Visit Diagnoses Not on filedocumented in this encounter Additional Health Concerns Assessment Noted Time PHQ-9 Depression Total Score: 0 10/18/19 22 8:13 AM CDT documented as of this encounter Care Teams Technology Training Associate Relationship Specialty Start Date End Date Carmelo Verduzco MD [address] [facility] [address] [place] [address] PCP - General FAMILY PRACTICE 11/11/17 documented as of this encounter
--- OUTSIDE RECORDS SUMMARY | 2025-05-15 01:27 | XMS_ITS | Encounter Summary ---
Author Organization [facility] Address [address] [place] [address] Care Team Providers Care Solid Tire Tuber Machine Operator Name Role Phone Arlen Golden MD, Polo Felton Primary Care Provider Encounter Details Date Type Department Care Team (Late st Contact Info) Description 09/19/2008 Outpatient Historical [facility] Gabriel Jones MD NO ADDRESS ON FILE Social History Tobacco Use Types Packs/Day Years Used Date Smoking Tobacco: Never Assessed Comments Unknown Sex and Gender Information Value Date Recorded Sex Assigned at Not on file Legal Sex Female 5:37 AM TABLE TOP TILE SETTER Gender Identity Not on file Sexual Orientation Not on file documented as of this encounter Plan of Treatment Not on file documented as of this encounter Procedures Procedure Name Priority Date/Time Associated Diagnosis Comments US OB LTD 1 OR MORE FETUSES Timed Study 09/26/2008 2:52 PM TABLE TOP TILE SETTER documented in this encounter Results * US OB LTD 1 OR MORE FETUSES (09/26/2008 2:52 PM TABLE TOP TILE SETTER) Anatomical Region Laterality Modality Pelvis Other Narrative 09/26/2008 2:52 PM TABLE TOP TILE SETTER FINAL - Order Information Only Procedure Note Torin Veliz, RN - 08/14/2015 FINAL - Order Information Only Gabriel Jones MD US ORDERABLES Final Result documented in this encounter Visit Diagnoses Not on filedocumented in this encounter Care Teams Solid Tire Tuber Machine Operator Relationship Specialty Start Date End Date Arlen Golden, Polo Felton MD PCP - General Family Practice 03/29/14 documented as of this encounter
--- OUTSIDE RECORDS SUMMARY | 2025-05-15 01:27 | XMS_ITS | Encounter Summary ---
Author Organization [facility] Address 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
--- OUTSIDE RECORDS SUMMARY | 2025-05-15 01:27 | XMS_ITS | Encounter Summary ---
Author Organization [facility] Address [address] [place] [address] Care Team Providers Care Candy Dipper Name Role Phone Arlen Golden MD, Polo Felton Primary Care Provider Encounter Details Date Type Department Care Team (Late st Contact Info) Description 10/17/2008 Outpatient Historical HIS PATIENT IN A BED Marciano Grissom MD [address] [place] [phone] Genaro Walker MD NO ADDRESS ON FILE Social History Tobacco Use Types Packs/Day Years Used Date Smoking Tobacco: Never Assessed Comments Unknown Sex and Gender Information Value Date Recorded Sex Assigned at Not on file Legal Sex Female 5:37 AM PAPER ROLLER Gender Identity Not on file Sexual Orientation [...] 8:39 PM CDT) BLOOD UA Negative Negative [facility] COLOR UA Pale Yellow [facility] NITRITE UA Negative Negative [facility] UROBILINOGEN UA <1 <=1 mg/dL [facility] PH UA 6.5 5.0 - 8.0 [facility] KETONES UA 1+(A) Negative [facility] CLARITY UA Clear Clear [facility] BILIRUBIN UA Negative Negative [facility] PROTEIN UA Negative Negative [facility] LEUKOCYTE ESTERASE UA Negative Negative [facility] SPECIFIC GRAVITY UA 1.008 1.001 - 1.035 [facility] GLUCOSE UA Negative Negative [facility] 10/17/2008 8:39 PM CDT 10/17/2008 8:43 PM CDT Marciano Grissom MD URINE ORDERABLES Final Result Performing Organization Address [facility] Phone Number INTERFACE SYSTEM Refer to clinic/hospital department [facility] CLIA# [id number] [address] [place] [address] * URINALYSIS WITH REFLEX CULTURE (10/17/2008 8:39 PM CDT) URINE CULTURE ORDER Not indicated [facility] Comment: Criteria for a reflex [...] URINE ORDERABLES Final Result Performing Organization Address [facility] Phone Number INTERFACE SYSTEM Refer to clinic/hospital department [facility] CLIA# [id number] [address] [place], [place] [address] documented in this encounter Visit Diagnoses Not on filedocumented in this encounter Care Teams Candy Dipper Relationship Specialty Start Date End Date Polo Mckinley Jr., MD PCP - General Family Practice 03/29/14 documented as of this encounter
--- OUTSIDE RECORDS SUMMARY | 2025-05-15 01:27 | XMS_ITS | Encounter Summary ---
Author Organization [facility] Address [address] [place] [address] Care Team Providers Care Senior Editor Name Role Phone Carmelo Verduzco MD Primary Care Provider [phone] Encounter Details Date Type Department Care Team (Late st Contact Info) Description 03/16/[address] [facility] Family Medicine - [place] [address] [facility], [address] [place] [address] [facility] Provider pap results Social History Tobacco Use Types Packs/Day Years Used Date Smoking Tobacco: Never Smokeless Tobacco: Never Alcohol Use Standard Drinks/Week Comments No 0 (1 standard drink = 0.6 oz pur e alcohol) PHQ-2 Answer Date Recorded Patient Health Questionnaire-2 Score 0 08/05/2022 Comments No Sex and Gender Information Value Date Recorded Sex Assigned at Female 09/19/2024 1:27 PM CREATIVE SERVICES MANAGER Legal Sex Female 5:32 PM CDT Gender Identity Female 09/19/2024 1:27 PM CREATIVE SERVICES MANAGER Sexual Orientation Not on file documented as of this encounter Plan of Treatment Not on file documented as of this encounter Visit Diagnoses Not on filedocumented in this encounter Additional Health Concerns Assessment Noted Time PHQ-9 Depression Total Score: 0 10/18/19 22 8:13 AM CDT documented as of this encounter Care Teams Senior Editor Relationship Specialty Start Date End Date Carmelo Verduzco MD [address] [facility] [address] [place] [place] [phone] PCP - General FAMILY PRACTICE 11/11/17 documented as of this encounter
--- OUTSIDE RECORDS SUMMARY | 2025-05-15 01:27 | XMS_ITS | Encounter Summary ---
Author Organization [facility] Address [address] [place] [address] Care Team Providers Care Marker Machine Name Role Phone Carmelo Verduzco MD Primary Care Provider [phone] Encounter Details Date Type Department Care Team (Late st Contact Info) Description 12/29/2022 [employer] Message Enc [facility] Family Medicine - [place] [address] [facility], [address] [place] [phone] Carmelo Verduzco MD [address] [facility] [address] [place] [address] Metformin and Oxybutinin Social History Tobacco Use Types Packs/Day Years Used Date Smoking Tobacco: Never Smokeless Tobacco: Never Alcohol Use Standard Drinks/Week Comments No 0 (1 standard drink = 0.6 oz pur e alcohol) PHQ-2 Answer Date Recorded Patient Health Questionnaire-2 Score 0 08/05/2022 Comments No Sex and Gender Information Value Date Recorded Sex Assigned at Female 09/19/2024 1:27 PM OVERCOILER Legal Sex Female 5:32 PM CDT Gender Identity Female 09/19/2024 1:27 PM OVERCOILER Sexual Orientation Not on file documented as of this encounter Plan of Treatment Not on file documented as of this encounter Visit Diagnoses Not on filedocumented in this encounter Additional Health Concerns Assessment Noted Time PHQ-9 Depression Total Score: 0 10/18/19 22 8:13 AM CDT documented as of this encounter Care Teams Marker Machine Relationship Specialty Start Date End Date Carmelo Verduzco MD [address] [facility] [address] [place] [address] PCP - General FAMILY PRACTICE 11/11/17 documented as of this encounter
--- OUTSIDE RECORDS SUMMARY | 2025-05-15 01:27 | XMS_ITS | Encounter Summary ---
Author Organization [facility] Address [address] [place] [address] Care Team Providers Care Comfort Filler Name Role Phone Carmelo Verduzco MD Primary Care Provider [phone] Encounter Details Date Type Department Care Team (Late st Contact Info) Description 12/15/2023 [employer] Message Enc [facility] Family Medicine - [place] [address] [facility], [address] [place] [phone] Carmelo Verduzco MD [address] [facility] [address] [place] [phone] Weight Loss Social History Tobacco Use Types Packs/Day Years Used Date Smoking Tobacco: Never Smokeless Tobacco: Never Alcohol Use Standard Drinks/Week Comments No 0 (1 standard drink = 0.6 oz pur e alcohol) PHQ-2 Answer Date Recorded Patient Health Questionnaire-2 Score 2 08/26/2023 Comments No Sex and Gender Information Value Date Recorded Sex Assigned at Female 09/19/2024 1:27 PM PRINTING MACHINE OPERATOR Legal Sex Female 5:32 PM CDT Gender Identity Female 09/19/2024 1:27 PM PRINTING MACHINE OPERATOR Sexual Orientation Not on file documented as of this encounter Plan of Treatment Not on file documented as of this encounter Visit Diagnoses Not on filedocumented in this encounter Additional Health Concerns Assessment Noted Time PHQ-9 Depression Total Score: 0 10/18/19 22 8:13 AM CDT documented as of this encounter Care Teams Comfort Filler Relationship Specialty Start Date End Date Carmelo Verduzco MD [address] [facility] [address] [place] [address] PCP - General FAMILY PRACTICE 11/11/17 documented as of this encounter
--- OUTSIDE RECORDS SUMMARY | 2025-05-15 01:27 | XMS_ITS | Encounter Summary ---
Author Organization [facility] Address [address] [place] [address] Care Team Providers Care Fisher Seal Name Role Phone Arlen Golden MD, Polo Felton Primary Care Provider Encounter Details Date Type Department Care Team (Late st Contact Info) Description 07/17/2008 Outpatient Historical [facility] Gabriel Jones MD NO ADDRESS ON FILE Social History Tobacco Use Types Packs/Day Years Used Date Smoking Tobacco: Never Assessed Comments Unknown Sex and Gender Information Value Date Recorded Sex Assigned at Not on file Legal Sex Female 5:37 AM LEATHER TOOLER Gender Identity Not on file Sexual Orientation Not on file documented as of this encounter Plan of Treatment Not on file documented as of this encounter Procedures Procedure Name Priority Date/Time Associated Diagnosis Comments US OB LTD 1 OR MORE FETUSES Timed Study 08/01/2008 11:07 AM LEATHER TOOLER documented in this encounter Results * US OB LTD 1 OR MORE FETUSES (08/01/2008 11:07 AM LEATHER TOOLER) Anatomical Region Laterality Modality Pelvis Other Narrative 08/01/2008 11:07 AM LEATHER TOOLER Results in [employer] Procedure Note 02/01/2009 Results in [employer] Gabriel Jones MD US ORDERABLES Final Result documented in this encounter Visit Diagnoses Not on filedocumented in this encounter Care Teams Fisher Seal Relationship Specialty Start Date End Date Polo Mckinley Jr., MD PCP - General Family Practice 03/29/14 documented as of this encounter
--- OUTSIDE RECORDS SUMMARY | 2025-05-15 01:27 | XMS_ITS | Encounter Summary ---
Author Organization [facility] Address [address] [place] [address] Care Team Providers Care Pantry Cook Name Role Phone Arlen Golden MD, Polo Felton Primary Care Provider Encounter Details Date Type Department Care Team (Late st Contact Info) Description 08/18/2008 Outpatient Historical [facility] Gabriel Jones MD NO ADDRESS ON FILE Social History Tobacco Use Types Packs/Day Years Used Date Smoking Tobacco: Never Assessed Comments Unknown Sex and Gender Information Value Date Recorded Sex Assigned at Not on file Legal Sex Female 5:37 AM FARM MANAGEMENT TEACHER Gender Identity Not on file Sexual Orientation Not on file documented as of this encounter Plan of Treatment Not on file documented as of this encounter Procedures Procedure Name Priority Date/Time Associated Diagnosis Comments US OB LTD 1 OR MORE FETUSES Timed Study 08/28/2008 2:14 PM FARM MANAGEMENT TEACHER documented in this encounter Results * US OB LTD 1 OR MORE FETUSES (08/28/2008 2:14 PM FARM MANAGEMENT TEACHER) Anatomical Region Laterality Modality Pelvis Other Narrative 08/28/2008 2:14 PM FARM MANAGEMENT TEACHER Results in [employer] Procedure Note 02/01/2009 Results in [facility] Gabriel Jones MD US ORDERABLES Final Result documented in this encounter Visit Diagnoses Not on filedocumented in this encounter Care Teams Pantry Cook Relationship Specialty Start Date End Date Polo Mckinley Jr., MD PCP - General Family Practice 03/29/14 documented as of this encounter
--- OUTSIDE RECORDS SUMMARY | 2025-05-15 01:27 | XMS_ITS | Encounter Summary ---
Author Organization [facility] Address [address] [place] [address] Care Team Providers Care Pediatric Medical Assistant Name Role Phone Carmelo Verduzco MD Primary Care Provider [phone] Encounter Details Date Type Department Care Team (Late st Contact Info) Description 04/17/2025 Results Follow-Up [facility] Family Medicine - [place] [address] [facility], [address] [place] [phone] Carmelo Verduzco MD [address] [facility] [address] [place] [phone] MG SCREENING W DUC JACY DIGI Social History Tobacco Use Types Packs/Day Years Used Date Smoking Tobacco: Never Passive Smoke Exposure: Past Smokeless Tobacco: Never Alcohol Use Standard Drinks/Week Comments No 0 (1 standard drink = 0.6 oz pur e alcohol) PHQ-2 Answer Date Recorded Patient Health Questionnaire-2 Score 0 09/19/2024 Comments No Sex and Gender Information Value Date Recorded Sex Assigned at Female 09/19/2024 1:27 PM PELT INSPECTOR Legal Sex Female 5:32 PM CDT Gender Identity Female 09/19/2024 1:27 PM PELT INSPECTOR Sexual Orientation Not on file documented as of this encounter Plan of Treatment Not on file documented as of this encounter Visit Diagnoses Not on filedocumented in this encounter Additional Health Concerns Assessment Noted Time PHQ-9 Depression Total Score: 0 10/18/19 22 8:13 AM CDT documented as of this encounter Care Teams Pediatric Medical Assistant Relationship Specialty Start Date End Date Carmelo Verduzco MD [address] [address] PCP - General FAMILY PRACTICE 11/11/17 documented as of this encounter
--- OUTSIDE RECORDS SUMMARY | 2025-05-15 01:27 | XMS_ITS | Encounter Summary ---
Author Organization [facility] Address [address] [place] [address] Care Team Providers Care Fleet Service Manager Name Role Phone Carmelo Verduzco MD Primary Care Provider [phone] Encounter Details Date Type Department Care Team (Late st Contact Info) Description 03/16/2023 [email or web address] Message Enc [facility] Medical [facility] Family Medicine - [place] [address] [facility], [address] [place] [phone] Carmelo Verduzco MD [address] [facility] [address] [place] [phone] Test Results Social History Tobacco Use Types Packs/Day Years Used Date Smoking Tobacco: Never Smokeless Tobacco: Never Alcohol Use Standard Drinks/Week Comments No 0 (1 standard drink = 0.6 oz pur e alcohol) PHQ-2 Answer Date Recorded Patient Health Questionnaire-2 Score 0 08/05/2022 Comments No Sex and Gender Information Value Date Recorded Sex Assigned at Female 09/19/2024 1:27 PM GYNECOLOGIST Legal Sex Female 5:32 PM CDT Gender Identity Female 09/19/2024 1:27 PM GYNECOLOGIST Sexual Orientation Not on file documented as of this encounter Plan of Treatment Not on file documented as of this encounter Visit Diagnoses Not on filedocumented in this encounter Additional Health Concerns Assessment Noted Time PHQ-9 Depression Total Score: 0 10/18/19 22 8:13 AM CDT documented as of this encounter Care Teams Fleet Service Manager Relationship Specialty Start Date End Date Carmelo Verduzco MD [address] [facility] [address] [place] [address] PCP - General FAMILY PRACTICE 11/11/17 documented as of this encounter
--- OUTSIDE RECORDS SUMMARY | 2025-05-15 01:27 | XMS_ITS | Encounter Summary ---
Author Organization [facility] Address [address] [place] [address] Care Team Providers Care Farmworker Diversified Crops Name Role Phone Carmelo Verduzco MD Primary Care Provider Encounter Details Date Type Department Care Team (Late st Contact Info) Description 03/02/2022 [employer] Message Enc [facility] Family Medicine - [place] [address] [facility], [address] [place] [phone] Carmelo Verduzco MD [address] [facility] [address] [place] [phone] Shirin menopause Social History Tobacco Use Types [...] Sex Assigned at Female 09/19/2024 1:27 PM NARCOTICS AGENT Legal Sex Female 5:32 PM CDT Gender Identity Female 09/19/2024 1:27 PM NARCOTICS AGENT Sexual Orientation Not on file documented as of this encounter Plan of Treatment Not on file documented as of this encounter Visit Diagnoses Not on filedocumented in this encounter Additional Health Concerns Assessment Noted Time PHQ-9 Depression Total Score: 0 10/18/19 22 8:13 AM CDT documented as of this encounter Care Teams Farmworker Diversified Crops Relationship Specialty Start Date End Date Carmelo Verduzco MD [address] [address] PCP - General FAMILY PRACTICE 11/11/17 documented as of this encounter
--- OUTSIDE RECORDS SUMMARY | 2025-05-15 01:27 | XMS_ITS | Encounter Summary ---
Author Organization [facility] Address [address] [place] [address] Care Team Providers Care Almond Huller Name Role Phone Carmelo Verduzco MD Primary Care Provider [phone] Encounter Details Date Type Department Care Team (Late st Contact Info) Description 07/29/2023 [employer] Message Enc [facility] Family Medicine - [place] [address] [facility], [address] [place] [phone] Carmelo Verduzco MD [address] [facility] [address] [place] [phone] Hand Specialist Social History Tobacco Use Types Packs/Day Years Used Date Smoking Tobacco: Never Smokeless Tobacco: Never Alcohol Use Standard Drinks/Week Comments No 0 (1 standard drink = 0.6 oz pur e alcohol) PHQ-2 Answer Date Recorded Patient Health Questionnaire-2 Score 0 08/05/2022 Comments No Sex and Gender Information Value Date Recorded Sex Assigned at Female 09/19/2024 1:27 PM IT RECRUITER Legal Sex Female 5:32 PM CDT Gender Identity Female 09/19/2024 1:27 PM IT RECRUITER Sexual Orientation Not on file documented as of this encounter Plan of Treatment Not on file documented as of this encounter Visit Diagnoses Not on filedocumented in this encounter Additional Health Concerns Assessment Noted Time PHQ-9 Depression Total Score: 0 10/18/19 22 8:13 AM CDT documented as of this encounter Care Teams Almond Huller Relationship Specialty Start Date End Date Carmelo Verduzco MD [address] [facility] [address] [place] [address] PCP - General FAMILY PRACTICE 11/11/17 documented as of this encounter
--- OUTSIDE RECORDS SUMMARY | 2025-05-15 01:27 | XMS_ITS | Clinical Summary ---
Author Organization [facility] Address [address] [place] [id number] Care Team Providers Care Project Manager Retail Name Role Phone Arlen Golden MD, Polo Felton Primary Care Provider Encounters Date Type Department Care Team Description 03/22/2025 External Device Data STL ABSTRACTION Provider, Abstract 03/15/2025 External Device Data STL ABSTRACTION Provider, Abstract 03/14/2025 External Device Data STL ABSTRACTION Provider, Abstract 03/09/2025 3:58 PM CDT - 03/09/2025 11:59 PM CDT Hospital Encounter [facility] Radiology [address] [place] [address] [address] [place] [address] Lorrie Egan MD Discharge Disposition: Home or Self Care 03/09/2025 3:58 PM CDT - 03/09/2025 11:59 PM CDT Hospital Encounter [facility] Radiology [address] [place] [address] [address] [place] [address] Lorrie Egan MD Discharge Disposition: Home or Self Care 03/09/2025 3:58 PM CDT - 03/09/2025 11:59 PM CDT Hospital Encounter [facility] Radiology [address] [place] [address] [address] [place] [address] Lorrie Egan MD Discharge Disposition: Home or Self Care from Last 3 Months Family History Medical History Relation Name Comments Breast Cancer Mother Breast Cancer Other 2 mat gr aunt Relation Name Status Comments Mother Other 2 mat gr aunt Alive Social History Tobacco Use Types Packs/Day Years Used Date Smoking Tobacco: Never Assessed Comments Unknown Sex and Gender Information Value Date Recorded Sex Assigned at Not on file Legal Sex Female 5:37 AM BEDSPREAD CUTTER HAND Gender Identity Not on file Sexual Orientation Not on file Occupation Industry Job Start Date Job End Date Not on file Not on file Not on file Not on file Plan of Treatment Health Maintenance Due Date Last Done Comments Pre-Diabetes and Diabetes Screening 1975 HEPATITIS B VACCINES (1 of 3 - 19+ 3-dose series) 1995 FIT-DNA Q 3 years 2021 FIT/FOBT Q 1 year 2021 Flex Sig/CT Colonography Q 5 years 2021 INFLUENZA VACCINE (#1) 2025 04/25/2021 BREAST CANCER SCREENING 04/09/2025 04/09/20 24, 04/09/2024, 03/14/2023, Additional history exists DTAP/TDAP/TD VACCINES (3 - T d or Tdap) 04/25/2031 04/25/2021, 08/01/2010 COLORECTAL SCREENING 04/11/2034 04/11/2024 Colorectal Cancer Screening 04/11/2034 Procedures Procedure Name Priority Date/Time Associated Diagnosis Comments XR FOOT 3+ VW BILAT Routine 03/09/2025 4 :10 PM CDT Polyarthritis XR HAND 2 VW BILAT Routine 03/09/2025 4: 10 PM CDT Polyarthritis XR SACROILIAC JOINTS 3+ VW Routine 03/09/2025 4:10 PM CDT Polyarthritis MAMMO SCREEN BILAT W OR WO CAD Routine 05/03/2015 5:39 PM CDT Visit for screening mammogram from Last 3 Months or Most Recently Relevant to Health Maintenance Results * XR FOOT 3+ VW BILAT (03/09/2025 4:10 PM CDT) Anatomical Region Laterality Modality Ankle / Foot Computed Radiogr aphy 03/09/2025 4:10 PM CDT Impressions 03/10/2025 9:51 AM CDT IMPRESSION: Osteoarthritic change. No distinct fracture identified. DICTATION LOCATION: Location [address] [place] [address] Narrative 03/10/2025 9:51 AM CDT EXAMINATION: BILATERAL FEET, THREE VIEWS EACH DATE: 03/09/2025 4:10 PM HISTORY: Pain. COMPARISON: None FINDINGS: Examination of the feet demonstrate bilateral inferior posterior calcaneal spurs. There is no evidence of fracture, dislocation or subluxation. There is bilateral joint space narrowing and immediately projecting spur is at the bases of the proximal phalanges, right first toe. INCIDENTAL FINDINGS: None. Procedure Note Jhonathan Mays MD - 03/10/2025 EXAMINATION: BILATERAL FEET, THREE VIEWS EACH DATE: 03/09/2025 4:10 PM HISTORY: Pain. COMPARISON: None FINDINGS: Examination of the feet demonstrate bilateral inferior posterior calcaneal spurs. There is no evidence of fracture, dislocation or subluxation. There is bilateral joint space narrowing and immediately projecting spur is at the bases of the proximal phalanges, right first toe. INCIDENTAL FINDINGS: None. IMPRESSION: Osteoarthritic change. No distinct fracture identified. DICTATION LOCATION: Location [address] [place] [address] Lorrie Egan MD DIAGNOSTIC IMAGING ORDERABLES Fi nal Result * XR HAND 2 VW BILAT (03/09/2025 4:10 PM CDT) Anatomical Region Laterality Modality Wrist / Hand Computed Radiogr aphy 03/09/2025 4:10 PM CDT Impressions 03/09/2025 5:02 PM CDT IMPRESSION: 1. Mild degenerative changes as described. DICTATION LOCATION: Location 4 Narrative 03/09/2025 5:02 PM CDT XR HAND 2 VW BILAT DATE: 03/09/2025 4:10 PM HISTORY: Polyarthralgia. COMPARISON: None. EXAMINATION: Two views of the bilateral hands. FINDINGS: Right: No fracture. No dislocation. Mild degenerative changes at the third PIP joint. There is a tiny adjacent bony ossicle which may relate to old avulsion. No evidence of inflammatory arthropathy. Soft tissues are normal. Left: No fracture. No dislocation. Mild degenerative changes at the fifth IP joint. No evidence of inflammatory arthropathy. Soft tissues are normal. Procedure Note Pérez Yi MD - 03/09/2025 XR HAND 2 VW BILAT DATE: 03/09/2025 4:10 PM HISTORY: Polyarthralgia. COMPARISON: None. EXAMINATION: Two views of the bilateral hands. FINDINGS: Right: No fracture. No dislocation. Mild degenerative changes at the third PIP joint. There is a tiny adjacent bony ossicle which may relate to old avulsion. No evidence of inflammatory arthropathy. Soft tissues are normal. Left: No fracture. No dislocation. Mild degenerative changes at the fifth IP joint. No evidence of inflammatory arthropathy. Soft tissues are normal. IMPRESSION: 1. Mild degenerative changes as described. DICTATION LOCATION: Location 4 us Lorrie Egan MD DIAGNOSTIC IMAGING ORDERABLES Fi nal Result * XR SACROILIAC JOINTS 3+ VW (03/09/2025 4:10 PM CDT) Anatomical Region Laterality Modality Pelvis Computed Radiogr aphy 03/09/2025 4:10 PM CDT Impressions 03/09/2025 4:16 PM CDT IMPRESSION: 1. Normal radiographs of the sacroiliac joints. DICTATION LOCATION: Location [address] [place] [address] 03/09/2025 4:16 PM CDT EXAMINATION: X-RAY SACROILIAC JOINTS 3+ VIEWS DATE: 03/09/2025 4:10 PM HISTORY: Back pain. COMPARISON: None. FINDINGS: 3 views of the sacroiliac joints are submitted. Right Sacroiliac Joint: The right sacroiliac joint has normal radiographic appearance. The joint space is normal. No acute fracture is seen. No radiographic evidence of sacroiliitis. Left Sacroiliac Joint: The left sacroiliac joint has normal radiographic appearance. The joint space is normal. No acute fracture is seen. No radiographic evidence of sacroiliitis. Procedure Note Anthony Villalobos MD - 03/09/2025 EXAMINATION: X-RAY SACROILIAC JOINTS 3+ VIEWS DATE: 03/09/2025 4:10 PM HISTORY: Back pain. COMPARISON: None. FINDINGS: 3 views of the sacroiliac joints are submitted. Right Sacroiliac Joint: The right sacroiliac joint has normal radiographic appearance. The joint space is normal. No acute fracture is seen. No radiographic evidence of sacroiliitis. Left Sacroiliac Joint: The left sacroiliac joint has normal radiographic appearance. The joint space is normal. No acute fracture is seen. No radiographic evidence of sacroiliitis. IMPRESSION: 1. Normal radiographs of the sacroiliac joints. DICTATION LOCATION: [address] Lorrie Egan MD DIAGNOSTIC IMAGING ORDERABLES Fi nal Result * MAMMO DIGITAL SCREEN BILAT (05/03/2015 5:39 [...] follow-up Overall Assessment: Birads Category 1: Negative us Marciano Grissom MD MAMMO ORDERABLES Final Result from Last 3 Months or Most Recently Relevant to Health Maintenance Insurance CHOICE [id number] Care Teams Project Manager Retail Relationship Specialty Start Date End Date Arlen Golden, Polo Felton MD PCP - General Family Practice 03/29/14
--- OUTSIDE RECORDS SUMMARY | 2025-05-15 01:27 | XMS_ITS | Encounter Summary ---
Author Organization [facility] Address [address] [place] [address] Care Team Providers Care General Office Associate Name Role Phone Carmelo Verduzco MD Primary Care Provider [phone] Reason for Visit * Reason Comments Lab (SCAN) Encounter Details Date Type Department Care Team (Latest Contact Info) Description 05/08/2025 Scan HEALTH INFO SRVCS Scanned, Doc Med [...] Sex Assigned at Female 09/19/2024 1:27 PM PRESS OPERATOR APPRENTICE Legal Sex Female 5:32 PM CDT Gender Identity Female 09/19/2024 1:27 PM PRESS OPERATOR APPRENTICE Sexual Orientation Not on file documented as of this encounter Plan of Treatment Not on file documented as of this encounter Procedures Procedure Name Priority Date/Time Associated Diagnosis Comments OUTSIDE LAB (SCAN ORDER) 05/08/2025 documented in this encounter Results * OUTSIDE LAB (SCAN ORDER) (05/08/2025) 05/08/2025 us [facility] Scanned SCANNING Final Resu lt documented in this encounter Visit Diagnoses Not on filedocumented in this encounter Additional Health Concerns Assessment Noted Time PHQ-9 Depression Total Score: 0 10/18/19 22 8:13 AM CDT documented as of this encounter Care Teams General Office Associate Relationship Specialty Start Date End Date Carmelo Verduzco MD [address] [facility] [address] [place] [address] PCP - General FAMILY PRACTICE 11/11/17 documented as of this encounter
--- OUTSIDE RECORDS SUMMARY | 2025-05-15 01:27 | XMS_ITS | Encounter Summary ---
Author Organization [facility] Address [address] [place] [address] Care Team Providers Care Biomaterials Engineer Name Role Phone Arlen Golden MD, Polo Felton Primary Care Provider Encounter Details Date Type Department Care Team (Late st Contact Info) Description 06/15/2008 Outpatient [facility] Gabriel Jones MD NO ADDRESS ON FILE Social History Tobacco Use Types Packs/Day Years Used Date Smoking Tobacco: Never Assessed Comments Unknown Sex and Gender Information Value Date Recorded Sex Assigned at Not on file Legal Sex Female 5:37 AM QUANTITATIVE SOFTWARE ENGINEER Gender Identity Not on file Sexual Orientation Not on file documented as of this encounter Plan of Treatment Not on file documented as of this encounter Procedures Procedure Name Priority Date/Time Associated Diagnosis Comments US OB LTD 1 OR MORE FETUSES Timed Study 07/04/2008 11:47 AM QUANTITATIVE SOFTWARE ENGINEER documented in this encounter Results * US OB LTD 1 OR MORE FETUSES (07/04/2008 11:47 AM QUANTITATIVE SOFTWARE ENGINEER) Anatomical Region Laterality Modality Pelvis Other Narrative 07/04/2008 11:47 AM QUANTITATIVE SOFTWARE ENGINEER Results in [employer] Procedure Note 02/01/2009 Results in [employer] Gabriel Jones MD US ORDERABLES Final Result documented in this encounter Visit Diagnoses Not on filedocumented in this encounter Care Teams Biomaterials Engineer Relationship Specialty Start Date End Date Polo Mckinley Jr., MD PCP - General Family Practice 03/29/14 documented as of this encounter
--- OUTSIDE RECORDS SUMMARY | 2025-05-15 01:27 | XMS_ITS | Encounter Summary ---
Author Organization [facility] Address [address] [place] [address] Care Team Providers Care Cashier Tube Room Name Role Phone Carmelo Verduzco MD Primary Care Provider [phone] Encounter Details Date Type Department Care Team (Late st Contact Info) Description 12/02/2019 Prep for Procedure [facility] Day [facility] [place], [place] [id number] Wayne Draper MD [address] [place] [address] Social History Tobacco Use Types Packs/Day Years Used Date Smoking Tobacco: Never Smokeless Tobacco: Never Alcohol Use Standard Drinks/Week Comments No 0 (1 standard drink = 0.6 oz pur e alcohol) Comments No Sex and Gender Information Value Date Recorded Sex Assigned at Female 09/19/2024 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 Legal Sex Female 5:32 PM CDT Gender Identity Female 09/19/2024 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 Sexual Orientation Not on file COVID-19 Exposure [...] DETECTED NOT DETECTED 12/05/2019 8:52 AM CDT [facility] NASOPHARYNGEAL SWAB / Unknown 12/03/2019 10:20 AM CDT us Wayne Draper MD MICROBIOLOGY - GENERAL ORDERABL ES Final Result [facility] [address] [place] [address], [place] [phone] documented in this encounter Visit Diagnoses Diagnosis Preop examination- Primary Preoperative examination, unspecified documented in this encounter Additional Health Concerns Infection Onset Date Last Indicated Resolved Time COVID-19 Rule Out 12/03/2019 12/03/2019 12/05/2019 8:52 AM CDT documented as of this encounter Care Teams Cashier Tube Room Relationship Specialty Start Date End Date Carmelo Verduzco MD [address] [facility] [address] [place], [place] [id number] PCP - General FAMILY PRACTICE 11/11/17 documented as of this encounter
--- OUTSIDE RECORDS SUMMARY | 2025-05-15 01:27 | XMS_ITS | Encounter Summary ---
Author Organization [facility] Address [address] [place] [address] Care Team Providers Care Electro Mechanical Technologist Name Role Phone Carmelo Verduzco MD Primary Care Provider [phone] Encounter Details Date Type Department Care Team (Late st Contact Info) Description 08/26/2023 [employer] Message Enc [facility] Medical [facility] Family Medicine [address], [address] [place] [phone] [facility] Provider hand Social History Tobacco Use Types Packs/Day Years Used Date Smoking Tobacco: Never Smokeless Tobacco: Never Alcohol Use Standard Drinks/Week Comments No 0 (1 standard drink = 0.6 oz pur e alcohol) PHQ-2 Answer Date Recorded Patient Health Questionnaire-2 Score 2 08/26/2023 Comments No Sex and Gender Information Value Date Recorded Sex Assigned at Female 09/19/2024 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
--- OUTSIDE RECORDS SUMMARY | 2025-05-15 01:27 | XMS_ITS | Encounter Summary ---
Author Organization [facility] Address 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
--- OUTSIDE RECORDS SUMMARY | 2025-05-15 01:27 | XMS_ITS | Encounter Summary ---
Author Organization [facility] Address [address] [place] [address] Care Team Providers Care Certified Travel Counselor Name Role Phone Carmelo Verduzco MD Primary Care Provider [phone] Encounter Details Date Type Department Care Team (Late st Contact Info) Description 10/04/2024 [employer] Message Enc [facility] Medical Group Orthopedic & Sports Medicine - [place] [address] [place], [place] [address] Omero Cedillo MD [address] [place] [address] Pain in left hand Social History Tobacco [...] Sex Assigned at Female 09/19/2024 1:27 PM [employer] MAORI Legal Sex Female 5:32 PM CDT Gender Identity Female 09/19/2024 1:27 PM [employer] MAORI Sexual Orientation Not on file documented as of this encounter Plan of Treatment Not on file documented as of this encounter Visit Diagnoses Not on filedocumented in this encounter Additional Health Concerns Assessment Noted Time PHQ-9 Depression Total Score: 0 10/18/19 22 8:13 AM CDT documented as of this encounter Care Teams Certified Travel Counselor Relationship Specialty Start Date End Date Carmelo Verduzco MD [address] [facility] [address] [place] [address] PCP - General FAMILY PRACTICE 11/11/17 documented as of this encounter
--- NOTE | 2025-05-15 07:17 | WPDHPUPDATE1 ---
History and Physical Update Update Date/Time: 05/15/25 07:17 History and Physical has been reviewed, including an updated exam of the patient. There are NO changes in the patient's condition. Risks, benefits, and alternatives have been discussed and questions answered. Patient agrees to proceed with procedure.
--- NOTE | 2025-05-15 10:02 | WPDANESEPPF ---
Anes - Initial Pre Proc Eval Procedure: Operation Date: 05/15/25 11:30 Proposed Procedures p Cystoscopy, Injection Bulking Agent - Channing Macdonald MD Date/Time: 05/15/25 10:02 Surgeon: Channing Macdonald MD Pre Op Diagnosis: ID Patient Data Age: 49 Gender: F Height: 1.57 m Weight: 97.7 kg Allergies Allergy/AdvReac Type Severity Reaction Status Date / Time aloe Allergy Mild Rash Verified 05/05/25 14:38 meperidine Allergy Unknown Rash Verified 05/05/25 14:38 Home Medications ?Medication ?Instructions ?Recorded ?Confirmed ?Type escitalopram oxalate 20 mg tablet 20 mg PO DAILY 12/15/23 05/05/25 History fenofibrate 160 mg tablet 160 mg PO DAILY 12/15/23 05/05/25 History nabumetone 750 mg tablet 750 mg PO BID 05/05/25 05/05/25 History Patient hx anesthesia problems: none Family hx anesthesia problems: none Results Review: All pre-operative results and documents have been reviewed as part of the pre-operative evaluation. PMFSH Past Medical History Medical History Hyperlipidemia Surgical History Surgical History History of back surgery History of carpal tunnel surgery H/O: hysterectomy History of delivery Family History Family History Father Hypertension Heart disease Skin cancer Depression Mother Depression Hypertension Breast cancer Sibling Hypertension Skin cancer Grandparent Skin cancer Hypertension Heart disease Thyroid disorder Social History Social History Smoking status: Never smoker Alcohol intake: never Substance use: never Substance use type: does not use Do You Feel Safe in your Home?: Yes Lack of Transportation: No Lack of Food: Never True Current Housing: I Have Housing Concerned About Future Housing: No Difficulty Paying Gas/Electric Bills: No Difficulty Paying for Meds: No Currently Unemployed: No Education: High School Diploma/GED Difficulty w/ Childcare or Family Care: No Living arrangements: with family Spiritual care concerns: No Anes - Eval Final PreProcedure Day of Procedure 05/15/25 10:02 Patient weight: morbidly obese Heart: regular rate and rhythm Lungs: clear to auscultation Airway: Mallampati scale class II Neurological: alert and oriented Last oral intake: >/= 8 hours ASA classification: III Emergent: no Anesthetic plan: proceed Anesthesia type and monitoring: general GIVS and standard monitoring Results Review: All pre-operative results and documents have been reviewed as part of the pre-operative evaluation. Informed Consent: The patient's anesthetic plan and its attendant risks and benefits were discussed with the patient/family/POA. Questions were solicited and answers provided to the satisfaction of the patient/family/POA.
[2025-05-15 10:08] VITALS: BP 133/82; PULSE 70; TEMP 36.5; O2SAT 99; BMI 39.2
[2025-05-15] MEDS: LACTATED RINGERS 1,000 ML 30 ML IV CONT (10:15)
[2025-05-15] MEDS: ceFAZolin 2 GM in SODIUM CHLORIDE 0.9% IV 50 ML 100 ML IVPB (10:17)
[2025-05-15] MEDS: LIDOCAINE 2% GEL UROJET 10 ML PKG MUCOUS MEM (10:33)
--- NOTE | 2025-05-15 10:41 | P.OP_ITS ---
Procedure Note - Detailed Date of Procedure 05/15/25 Pre-op Diagnosis Intrinsic sphincter deficiency Post-op Diagnosis Same Procedure Performed Cystoscopy with suburethral injection of implant material Surgeon Channing Macdonald MD Anesthesia MAC and Local (Lidocaine jelly) Indications She has recurrent stress incontinence. She has had urethral sling in the past. She had mesh exposure. This was removed. She underwent a bulking agent about 5-6 months ago. She had incomplete efficacy and would like an additional bulking agent. She understands risks of bleeding, infection, lack of efficacy, need for repeat procedures, urinary retention requiring catheterization. She agrees to proceed I do not think she is a good candidate for repeat synthetic urethral sling Findings Uncomplicated bulking agent injection Description of Procedure She was correctly identified. Informed consent obtained. She is from the operating room. She was given monitored anesthesia care. She was placed in dorsal lithotomy position. She was prepped and draped sterile fashion. Time- out performed. Cystoscopy revealed a normal-appearing bladder without abnormalities. Urethra had evidence of bulking effect particularly at the 12 o'clock position. I chose a site the mid urethra 2 cm distal to bladder neck. I injected bulking agent circumferentially. I used 2 syringes total. I performed several pillows completely collapsing urethra. There was excellent bulking effect. Her bladder was left partially full. She was awakened transferred to PACU in stable condition. Estimated Blood Loss 0 Complications No immediate complications Condition Stable Disposition PACU
[2025-05-15 10:42] VITALS: BP 113/65; PULSE 76; RESP 14
[2025-05-15 11:10] VITALS: BP 117/74; PULSE 68; RESP 16
[2025-05-15 11:40] VITALS: BP 109/69; PULSE 68
[2025-05-15 12:10] VITALS: BP 118/71; PULSE 59
[2025-05-15 12:40] VITALS: BP 120/73; PULSE 58; RESP 16
== END 2025-05-15 13:04 | disposition home or self-care (01) ==
PROVIDERS: PCP Family Medicine; Visit Provider Urology
PROC: 3E0K8GC Introduction of Other Therapeutic Substance into Genitourinary Tract, Via Natural or Artificial Opening Endoscopic (ICD-10-PCS; CPT 51715; principal; 2025-05-15 11:30)
DX: N36.42 Intrinsic sphincter deficiency (ISD) (principal); N39.3 Stress incontinence (female) (male); E78.5 Hyperlipidemia, unspecified; E66.01 Morbid (severe) obesity due to excess calories; Z68.39 Body mass index [BMI] 39.0-39.9, adult; Z98.890 Other specified postprocedural states; Z98.1 Arthrodesis status; Z84.0 Family history of diseases of the skin and subcutaneous tissue; Z80.3 Family history of malignant neoplasm of breast; Z82.49 Family history of ischemic heart disease and other diseases of the circulatory system
CPT/HCPCS: 51715; J0690; J1100; J2003; J2250; J2405; J2704; J3010; J7120; L8606